=== PATIENT | female | born 1960 | race Caucasian/White ===

== ENCOUNTER 2024-04-07 15:08 | Emergency (ER) | payer SELFPAY ==
[2024-04-07 15:08] VITALS: BP 184/107; PULSE 87; RESP 18; TEMP 36.6; O2SAT 99; BMI 31.1
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
[2024-04-07 17:00] VITALS: BP 155/87; PULSE 75; RESP 18; TEMP 36.7; O2SAT 97
== END 2024-04-07 17:05 | disposition home or self-care (01) ==
PROVIDERS: Emergency Provider Emergency Medicine; PCP Student in an Organized Health Care Education/Training Program; Visit Provider Emergency Medicine
DX: S06.0X0A Concussion without loss of consciousness, initial encounter (principal); Z87.891 Personal history of nicotine dependence; Z79.01 Long term (current) use 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s; V89.2XXA Person injured in unspecified motor-vehicle accident, traffic, initial encounter
CPT/HCPCS: 70450; 99282

== ENCOUNTER 2024-12-07 13:19 | Outpatient (RCR) | payer SELFPAY ==
--- NOTE | 2025-03-21 15:51 | HP.OT.NRP ---
Patient Information Patient Information: FADUMO CANTOR was seen in my office for initial evaluation on . The following Plan of Care was established for this patient: Last Seen Last Seen: This patient was last seen in our office 12/07/24. Pertinent comments regarding their Occupational therapy will appear below: no further apts have been scheduled and due to time lapse in services pt is d/c at this time. At this point I will be discontinuing this patient from occupational therapy. I would be happy to see this patient again in the future if found appropriate by the physician. Thank you! Kayla Harley, OTR/L, CHT
== END 2024-12-07 19:00 | disposition home or self-care (01) ==
LOC: OT 13:19
PROVIDERS: PCP Student in an Organized Health Care Education/Training Program; Referring Provider Surgery Plastic and Reconstructive Surgery; Visit Provider Surgery Plastic and Reconstructive Surgery
DX: M72.0 Palmar fascial fibromatosis [Dupuytren] (principal)

== ENCOUNTER 2025-06-14 18:45 | Inpatient (IN) | payer MEDICARE, SELFPAY ==
[2025-06-14 18:47] VITALS: BP 165/120; PULSE 100; RESP 20; TEMP 36.1; O2SAT 100; BMI 30.7
[2025-06-14] MEDS: 0.9% Normal Saline (1000mL) 1,000 ML 1000 ML IV (19:49)
[2025-06-14 19:58] LABS: Hematocrit 41.0 % (37-47); Hemoglobin 13.4 g/dL (12.0-15.0); Immature Granulocytes Count 0.030 X10^3/uL (0.0-0.0); Mean Corp Hgb Conc 32.7 g/dL (32-36); Mean Corpuscular Volume 89.5 fL (81-99); Mean Platelet Vol. 10.8 fl (6.2-12.0); NRBC Flagged by Analyzer 0 % (0-5); Platelet Count 249 K/mm3 (150-450); RBC Distribution Width CV 13.1 % (11.6-14.6); RBC Distribution Width SD 42.8 fl (35.1-43.9); Red Blood Count 4.58 M/mm3 (4.2-5.4); White Blood Count 6.6 K/mm3 (4.4-11.0)
--- NOTE | 2025-06-14 19:58 | EX.ED.DYSGE1 ---
HPI History of Present Illness Chief Complaint: Nausea/Vomiting Narrative Narrative: Patient was seen and examined after presenting to ED for nausea vomiting states that she had multiple bloody emesis episodes states that she has never had this before does not drink any significant amount of alcohol she is however on warfarin but stopped taking it on Thursday as she is supposed to get a colonoscopy tomorrow she will restart her colonoscopy prep today. PFSH PFSH Medical History Blood clot in leg Back problem Arthritis Allergies Hypercholesterolemia Hypertension FH: cholecystectomy Brain aneurysm Home Medications ?Medication ?Instructions ?Recorded ?Last Taken ?Type warfarin 7.5 mg tablet 7.5 mg PO QDAY 11/24/24 06/11/25 History Allergy/AdvReac Type Severity Reaction Status Date / Time shellfish derived Allergy Mild Vomiting Verified 06/14/25 18:50 mushroom Allergy Anaphylaxis Verified 06/14/25 18:50 Family History Other Blood clot in leg Breast cancer CVA (cerebral vascular accident) Cancer Kidney disease Surgical History Hx of cholecystectomy H/O brain surgery H/O: hysterectomy Social History household members: none housing: house pets and animals: Yes Smoking Status: Former smoker how long ago did patient quit smoking: quit 1979 alcohol intake: current details: socially substance use type: does not use additional social history: pt uses aspirin and ibuprofen pt denies vaping, denies edibles, denies marijuana, pt report history of blood clots ROS ROS ED ROS Narrative Pertinent Positives: Multiple episodes of bloody emesis anticoagulated on warfarin but has not had a 3 days Pertinent Negatives: Fevers chills black or bloody stool abdominal pain hemoptysis The remainder of review of systems negative unless otherwise stated in the HPI above. Systems reviewed including constitutional, psychiatric, cardiovascular, respiratory, integument, HENT, gastrointestinal. EXAM Physical Exam Narrative Exam Narrative: Patient is afebrile hemodynamically stable she does not appear toxic. Oropharynx is clear no evidence of any coffee-ground emesis either. Normal heart and lung sounds. Abdomen is soft nontender nondistended. Intact and equal MSPs. Const Vital Signs: 06/14/25 18:47 06/14/25 20:53 06/14/25 22:09 Temperature 97 F L Temperature Source Temporal Pulse Rate 100 76 68 Respiratory Rate 20 H 19 H 18 Blood Pressure 165/120 H 157/82 H 134/64 H Blood Pressure Mean 135 107 87 Pulse Ox 100 98 98 Oxygen Delivery Method Room Air Room Air Room Air MDM MDM MDM Narrative Medical decision making narrative: Nursing notes, triage notes, available previous documentation, and vital signs were reviewed. Any discrepancies noted were addressed. Differential Diagnoses: Need to consider GI bleed does not seem like it is a Bina-Merlos tear low suspicion for PE Interventions: Zofran Protonix Antibiotics Given: Ceftriaxone Fluids Given: 1 L normal saline Labs Reviewed: No significant leukocytosis or leukopenia hemoglobin was 13.4. No coagulopathy INR was 1. BUN to creatinine ratio was otherwise 12.7 no significant electrolyte abnormality or renal insufficiency or transaminitis troponin was 10 Previous Documentation Reviewed: None available or applicable at this time. ED Course: Patient presenting with symptoms as stated above we will evaluate and assess her hemoglobin level she needs intervention we will she states that she has had blood transfusions in the past when she had some sort of neurosurgical procedure. 1958: I was notified by nursing staff that patient is actually having hematemesis. 2246: I did discuss with hospitalist Dr. Ding who was requesting a repeat hemoglobin patient's hemoglobin went from 13.4-12 after that 1 episode of hematemesis patient will be admitted. This note was made utilizing voice recognition software. All attempts were made to correct spelling or other errors prior to note completion. However, due to the fast-paced nature of emergency medicine, some errors may still be present. Lab Data Labs: Laboratory Results - last 24 hr 06/14/25 06/14/25 06/14/25 19:50 19:52 22:06 WBC 6.6 9.5 RBC 4.58 4.06 L Hgb 13.4 12.0 Hct 41.0 36.3 L MCV 89.5 89.4 MCH 29.3 29.6 MCHC 32.7 33.1 RDW Std Deviation 42.8 42.7 RDW Coeff of Yinka 13.1 13.1 Plt Count 249 224 MPV 10.8 10.9 Immature Gran % (Auto) 0.500 0.400 Neut % (Auto) 53.7 57.5 Lymph % (Auto) 27.6 26.8 Mayes % (Auto) 13.1 H 12.2 H Eos % (Auto) 3.7 2.0 Baso % (Auto) 1.4 H 1.1 H Absolute Neuts (auto) 3.5 5.4 Absolute Lymphs (auto) 1.81 2.53 Nucleated RBC % 0 0 PT 13.8 INR 1.0 APTT 24.8 Sodium 144 Potassium 3.6 Chloride 108 Carbon Dioxide 23.0 Anion Gap 13 BUN 12 Creatinine 0.94 Estim Creat Clear Calc 59.28 Est GFR (MDRD) Non-Af 67 BUN/Creatinine Ratio 12.7 Glucose 85 Calcium 8.9 Total Bilirubin 0.74 AST 28 ALT 26 Alkaline Phosphatase 73 Troponin T High Sens 10 Total Protein 6.9 Albumin 4.3 Globulin 2.6 Albumin/Globulin Ratio 1.6 Blood Type A NEGATIVE Antibody Screen NEGATIVE Crossmatch See Detail Discharge Plan Triage Chief Complaint: Nausea/Vomiting ED Provider: Stefania Valdovinos Dx/Rx/DC Orders Clinical Impression: Hematemesis, Acute upper GI bleed Prescriptions: No Action warfarin 7.5 mg tablet 7.5 mg PO QDAY Primary Care Provider: Juan Jose Euceda Referrals: Juan Jose Euceda MD [Primary Care Provider, Internal Medicine] Print Language: Cape Verdean
[2025-06-14 20:08] LABS: Prothrombin Time (Protime)PT. 13.8 SECONDS (11.7-14.9)
[2025-06-14 20:09] LABS: Partial Thromboplast Time 24.8 Seconds (24.1-36.2)
[2025-06-14 20:19] LABS: AST(SGOT) 28 U/L (<=31); Alanine Aminotransfer ALT/SGPT 26 U/L (<=34); Albumin, Serum 4.3 g/dL (3.4-4.8); Alkaline Phosphatase 73 U/L (35-104); Anion Gap 13 (5-15); BUN 12 mg/dL (4-19); BUN/Creat Ratio 12.7 RATIO (10-20); Calcium,Total 8.9 mg/dL (7.6-11.0); Carbon Dioxide 23.0 mmol/L (21.0-32.0); Chloride 108 mmol/L (98-108); Estimated Creatinine Clearance 59.28 ml/min (50-250); Globulin 2.6 g/dL (2.2-4.2); Glucose 85 mg/dL (70-99); Potassium 3.6 mmol/L (3.3-5.1)
--- NOTE | 2025-06-14 20:31 | EKG12_ITS ---
Test Reason : CP Blood Pressure : */* mmHG Vent. Rate : 84 BPM Atrial Rate : 84 BPM P-R Int : 104 ms QRS Dur : 74 ms QT Int : 414 ms P-R-T Axes : 51 40 45 degrees QTcB Int : 489 ms Sinus rhythm with short CO Otherwise normal ECG Confirmed by Jose Alfredo Lord ([id number]), map editor TATIANA ROMERO ([id number]) on 06/16/2025 10:28:46 AM Referred By: Confirmed By: Jose Alfredo Lord
--- OUTSIDE RECORDS SUMMARY | 2025-06-14 20:47 | XMS RPT_ITS | CCD ---
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 planning , or : No Allergy to lidocaine/ epinephrine/ latex/ adhesive: No Defibrillator/ Pacer: No Pertinent Family Medical History: History of melanoma: No History of non melanoma skin cancer: No Other family history (autoimmune, dermatologic, etc): None Social History: History of severe sun king: No 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 Sun Protection: No PAST MEDICAL HISTORY Diagnosis Date Acute, but ill-defined, cerebrovascular disease 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- MRI COMPATIBLE ICD Description Code Date Cerebral hemorrhage (HCC) - 2008 from anuerysm Factor V Leiden mutation (HCC) - hetero Gastroesophageal reflux disease 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 H/O vertigo - has seen neuro in past History 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 therapy - Coumadin History of DVT of lower extremity 03/17/2017 History of malignant neoplasm of uterine body Hyperglycemia Hyperlipidemia Immunization refused Intervertebral disc disorder - lumbar disk Known medical problems 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 Osteopenia Peripheral nerve disease Phlebitis and thrombophlebitis of unspecified site Skin sensation disturbance Sternal fracture with retrosternal contusion, closed, initial encounter 01/29/2023 Vasomotor rhinitis Vitamin D deficiency PAST SURGICAL HISTORY Procedure Laterality Date BRAIN SURGERY HX 01/01/2010 drain fluid off brain CHOLECYSTECTOMY 11/2014 DR ALVAREZ COLONOSCOPY [address] EGD 2014 minimal gastritis HYSTERECTOMY HX 09/1994 Anesth, hysterectomy-HAS OVARIES PAST SURGICAL HISTORY OF 06/15/2009 craniotomy and brain aneurysm PAST SURGICAL HISTORY OF 07/07/2009 inferior vena cava filter placement PAST SURGICAL HISTORY OF 2008 Aneurysm repair-ophalmic/ clip in no MRI PAST SURGICAL HISTORY OF 08/01/2013 MOLE REMOVAL-LT ABDOMEN, RT THIGH, RT UPPER BACK Current Outpatient Medications on File Prior to Visit Medication Sig peg 3350-Electrolytes (GOLYTELY) 236-22.74-6.74 -5.86 gram suspension Refer to printed prep instructions from your provider. warfarin (JANTOVEN) 7.5 mg tablet Take 1 tablet by mouth once daily. No future refills will be approved without office visit. cyanocobalamin (VITAMIN B-12) 100 mcg tab Take 100 mcg by mouth. Zinc Gluconate 50 mg tablet Take 50 mg by mouth. Cholecalciferol, Vitamin D3, (VITAMIN D-3) 2,000 unit cap Take 1 capsule by mouth once daily. No current facility-administered medications on file prior to visit. ROS: Skin as above. Physical Exam: Oliva skin type: II The patient is a pleasant female in no apparent distress. Alert and oriented x 3. A skin exam performed of the neck, abdomen, and right upper extremity is significant for: Left Abdomen (side) - Lower Variably pigmented waxy papules/ plaques with stuck on appearance Neck - Anterior Dilated pore with central black keratin plug Right Upper Arm - Anterior Uniform brown papule with globular appearance on dermoscopy. Assessment and Plan: Skin Exam 1. SEBORRHEIC KERATOSIS Left Abdomen (side) - Lower Variably pigmented waxy papules/ plaques with stuck on appearance Reassured that this is a benign lesion and does not require any treatment. Educated that if the lesion changes color, becomes larger, bleeds, becomes bothersome or painful then it should be reevaluated. Patient expresses understanding and is agreeable to plan. 2. DILATED PORE OF ANTHONY Neck - Anterior Dilated pore with central black keratin plug Educated and reassured. Benign finding. 3. BENIGN NEVUS Right Upper Arm - Anterior Uniform brown papule with globular appearance on dermoscopy. No treatment is needed for the benign appearing and asymptomatic lesion described above. The ABCDE (Asymmetry, Border, Color, Diameter, Evolution/ Change) criteria used to evaluate pigmented lesi (more content not included)... [facility] 03-01-2025 Telephone encounter Note Images from the original note were not included. [facility]IN [facility] - PHONE FOLLOWUP Referring provider: Juan Jose Stafford MD Reason for visit: Anticoagulation Management Indication: Recurrent DVT with most recent being 2008 or 2009, Factor V Leiden mutation INR goal: 2.0-3.0 Duration: Indefinite Bridging assessment and details: History of recurrent VTE with Factor V Leiden mutation would consider bridging. DOAC appropriateness/feasibility: Eligible for DOAC, pt declines due to preference/comfort (date: 02/07/2021) Home INR monitor: Active, [employer]. Tests every 2-4 weeks Consult agreement has been signed by physician. Patient has been notified verbally and/or in writing of the terms of the pharmacist-physician consult agreement for the clinic. Date: 10/06/2018 OK to leave detailed voicemail? Not assessed Most recent visit with referring provider: 05/05/2023 PT INR Date Value Ref Range Status 02/20/2025 1.9 Final INR had been therapeutic since 08/25/2023. On 05/07, INR =1.9. Patient admitted that she stopped taking warfarin because someone told her it was rat poison and she was scared. She was then having pain in her legs so decided to restart on 05/05. INR was 1.9 after 2 doses. She stated that she took aspirin and some stuff to try to boost it. Discussed with patient that warfarin can be found in rat poison but it is much higher doses for a smaller creature. Explained that with humans, we give a therapeutic dose and monitor levels very closely. Explained the importance of INR checks to keep warfarin safe. She stated she will take but was still scared. Continued with dose patient was taking previously. INR had been therapeutic since through 09/30. Dose continued. On 10/28/2024, INR = 1.1. Subtherapeutic, etiology missed doses; pt ran out of warfarin. Restarted 10/30/2024. Will resume regular dose and recheck in 1 week to ensure return to normal, then spread checks out again if so. On 11/15/2024, INR = 2.0. Therapeutic. Dose continued. On 12/07/2024, INR = 2.1. Therapeutic. Dose continued. On 01/17/2025, INR = 2.0. Therapeutic. Dose continued. On 02/20/2025, INR = 1.9. Subtherapeutic. Dose continued as pt has been therapeutic overall with recheck in 2 weeks. Current warfarin dose: 7.5 mg daily Plan: Description CONTINUE 7.5mg daily. Recheck INR in 2 weeks. Spoke to pt, who verbalized understanding. Brenda Sarkar RPh [facility] 03-01-2025 Miscellaneous Notes Images from the original note were not included. [facility] - PHONE FOLLOWUP Referring provider: Juan Jose Stafford MD Reason for visit: Anticoagulation Management Indication: Recurrent DVT with most recent being 2008 or 2009, Factor V Leiden mutation INR goal: 2.0-3.0 Duration: Indefinite Bridging assessment and details: History of recurrent VTE with Factor V Leiden mutation would consider bridging. DOAC appropriateness/feasibility: Eligible for DOAC, pt declines due to preference/comfort (date: 02/07/2021) Home INR monitor: Active, [employer]upe/[employer]. Tests every 2-4 weeks Consult agreement has been signed by physician. Patient has been notified verbally and/or in writing of the terms of the pharmacist-physician consult agreement for the clinic. Date: 10/06/2018 OK to leave detailed voicemail? Not assessed Most recent visit with referring provider: 05/05/2023 PT INR Date Value Ref Range Status 02/20/2025 1.9 Final INR had been therapeutic since 08/25/2023. On 05/07, INR =1.9. Patient admitted that she stopped taking warfarin because someone told her it was rat poison and she was scared. She was then having pain in her legs so decided to restart on 05/05. INR was 1.9 after 2 doses. She stated that she took aspirin and some stuff to try to boost it. Discussed with patient that warfarin can be found in rat poison but it is much higher doses for a smaller creature. Explained that with humans, we give a therapeutic dose and monitor levels very closely. Explained the importance of INR checks to keep warfarin safe. She stated she will take but was still scared. Continued with dose patient was taking previously. INR had been therapeutic since through 09/30. Dose continued. On 10/28/2024, INR = 1.1. Subtherapeutic, etiology missed doses; pt ran out of warfarin. Restarted 10/30/2024. Will resume regular dose and recheck in 1 week to ensure return to normal, then spread checks out again if so. On 11/15/2024, INR = 2.0. Therapeutic. Dose continued. On 12/07/2024, INR = 2.1. Therapeutic. Dose continued. On 01/17/2025, INR = 2.0. Therapeutic. Dose continued. On 02/20/2025, INR = 1.9. Subtherapeutic. Dose continued as pt has been therapeutic overall with recheck in 2 weeks. Current warfarin dose: 7.5 mg daily Plan: Description CONTINUE 7.5mg daily. Recheck INR in 2 weeks. Spoke to pt, who verbalized understanding. Brenda Sarkar RPh documented in this encounter [facility] 02-20-2025 Note HNO ID: [id number] Author: BETHANY LOWERY APRN.DUPLICATE MAKER Service: ? Author Type: Nurse Practitioner Type: Progress Notes Filed: 02/20/2025 10:41 Note Text: Recording using [employer] software for draft documentation of the visit was discussed with the patient/authorized chain sales representative; all questions welcomed and answered. Patient/authorized chain sales representative agreed to proceed Subjective Fadumo Cantor is a 64-year-old female with a history of hyperlipidemia, recurrent DVTs, Factor V Leiden mutation, and Raynaud's syndrome, HPL, presenting for medication follow-up. Factor V Leiden Mutation: - History of recurrent DVTs. - Managed with warfarin 7.5 mg daily through Coumadin clinic - Last INR was 1.9. - Monitors INR at home. - Recent dietary intake of salad noted. Dupuytren's Contracture: - Diagnosed with Dupuytren's contracture in both hands by hand orthopedic in [place]. - More pain in the left hand; fingers get stuck. - Pain radiates up the arm. - Wearing bilateral wrist braces for support. - She may consider having injections done in her hands if worsens Hyperlipidemia: - Last lipid panel on 07/20/20 showed cholesterol 144, triglyceride 112, HDL 57, LDL 65. - Managed with diet. Raynaud's Syndrome: - Fingers and toes change color; no ulcers. - Keeps extremities warm. GERD: - Managed with [facility]. Constipation: - Managed with increased vegetable intake. Vitamin D Deficiency: - Taking vitamin D 2000 units daily. Skin lesion: - Has history of left lower abdomen skin lesion removal by mailroom assistant many years ago. - she states that lesion has reoccurred in the same location that was removed Weight Gain: - Recent weight gain from 176 lbs to 183 lbs. - Limited exercise due to weather conditions. - Uses a cane for ambulation due to gait issues and back pain. PAST MEDICAL HISTORY Diagnosis Date Acute, but ill-defined, cerebrovascular disease 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- MRI COMPATIBLE ICD Description Code Date Cerebral hemorrhage (HCC) - 2008 from anuerysm Factor V Leiden mutation (HCC) - hetero Gastroesophageal reflux disease 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 H/O vertigo - has seen neuro in past History 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 therapy - Coumadin History of DVT of lower extremity 03/17/2017 History of malignant neoplasm of uterine body Hyperglycemia Hyperlipidemia Immunization refused Intervertebral disc disorder - lumbar disk Known medical problems 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 Osteopenia Peripheral nerve disease Phlebitis and thrombophlebitis of unspecified site Skin sensation disturbance Sternal fracture with retrosternal contusion, closed, initial encounter 01/29/2023 Vasomotor rhinitis Vitamin D deficiency PAST SURGICAL HISTORY Procedure Laterality Date BRAIN SURGERY HX 01/01/2010 drain fluid off brain CHOLECYSTECTOMY 11/2014 DR ALVAREZ COLONOSCOPY [address] EGD 2014 minimal gastritis HYSTERECTOMY HX 09/1994 Anesth, hysterectomy-HAS OVARIES PAST SURGICAL HISTORY OF 06/15/2009 craniotomy and brain aneurysm PAST SURGICAL HISTORY OF 07/07/2009 inferior vena cava filter placement PAST SURGICAL HISTORY OF 2008 Aneurysm repair-ophalmic/ clip in no MRI PAST SURGICAL HISTORY OF 08/01/2013 MOLE REMOVAL-LT ABDOMEN, RT THIGH, RT UPPER BACK SOCIAL HISTORY[1] ALLERGIES Allergen Reactions Mushroom Other: See Comments Get heartburn Other reaction(s): AOF Current Outpatient Medications Medication Sig warfarin (JANTOVEN) 7.5 mg tablet Take 1 tablet by mouth once daily. No future refills will be approved without office visit. cyanocobalamin (VITAMIN B-12) 100 mcg tab Take 100 mcg by mouth. Zinc Gluconate 50 mg tablet Take 50 mg by mouth. Cholecalciferol, Vitamin D3, (VITAMIN D-3) 2,000 unit cap Take 1 capsule by mouth once daily. peg 3350-Electrolytes (GOLYTELY) 236-22.74-6.74 -5.86 gram suspension Refer to printed prep instructions from your provider. No current facility-administered medications for this visit. Review of Systems Constitutional: (+) weight gain Respiratory: (+) productive cough-in am, (-) wheezing, (-) shortness of breath Gastrointestinal: (+) constipation, (+) acid reflux, (-) abdominal pain, (-) nausea, (-) vomiting Musculoskeletal: (+) bilateral hand pain, (+) finger stiffness, (+) gait instability Skin: (+) digital color changes, (-) digital ulcers Psychiatric: (-) anxiety, (-) depressed mood, (-) anhedonia Hematologic/Lymphatic: (-) easy bruising, (-) bleeding BP 134/84 Pulse 90 Temp (Src) 97.6 (Temporal) Resp 18 Ht 5' 3 (1.60m) Wt 183 lb (83.0kg) SpO2 99% BMI 32.43 kg/(m2). Last BP 02/20/25 : 134/84 06/27/24 : 124/90 09/14/23 : 148/84 Last Wt 02/20/25 : 83 kg (183 lb) 06/27/24 : 79.9 kg (176 lb 2.4 oz) 09/14/23 : 75.8 kg (167 lb) Labs: (Today) INR: 1.9 (02/03/2023) (more content not included)... [facility] 02-20-2025 History of Presen t illness Narrative Recording using [employer] software for draft documentation of the visit was discussed with the patient/authorized chain sales representative; all questions welcomed and answered. Patient/authorized chain sales representative agreed to proceed Subjective Fadumo Cantor is a 64-year-old female with a history of hyperlipidemia, recurrent DVTs, Factor V Leiden mutation, and Raynaud's syndrome, HPL, presenting for medication follow-up. Factor V Leiden Mutation: - History of recurrent DVTs. - Managed with warfarin 7.5 mg daily through Coumadin clinic - Last INR was 1.9. - Monitors INR at home. - Recent dietary intake of salad noted. Dupuytren's Contracture: - Diagnosed with Dupuytren's contracture in both hands by hand orthopedic in [place]. - More pain in the left hand; fingers get stuck. - Pain radiates up the arm. - Wearing bilateral wrist braces for support. - She may consider having injections done in her hands if worsens Hyperlipidemia: - Last lipid panel on 07/20/20 showed cholesterol 144, triglyceride 112, HDL 57, LDL 65. - Managed with diet. Raynaud's Syndrome: - Fingers and toes change color; no ulcers. - Keeps extremities warm. GERD: - Managed with [facility]. Constipation: - Managed with increased vegetable intake. Vitamin D Deficiency: - Taking vitamin D 2000 units daily. Skin lesion: - Has history of left lower abdomen skin lesion removal by mailroom assistant many years ago. - she states that lesion has reoccurred in the same location that was removed Weight Gain: - Recent weight gain from 176 lbs to 183 lbs. - Limited exercise due to weather conditions. - Uses a cane for ambulation due to gait issues and back pain. PAST MEDICAL HISTORY Diagnosis Date Acute, but ill-defined, cerebrovascular disease 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- MRI COMPATIBLE ICD Description Code Date Cerebral hemorrhage (HCC) - 2008 from anuerysm Factor V Leiden mutation (HCC) - hetero Gastroesophageal reflux disease 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 H/O vertigo - has seen neuro in past History 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 therapy - Coumadin History of DVT of lower extremity 03/17/2017 History of malignant neoplasm of uterine body Hyperglycemia Hyperlipidemia Immunization refused Intervertebral disc disorder - lumbar disk Known medical problems 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 Osteopenia Peripheral nerve disease Phlebitis and thrombophlebitis of unspecified site Skin sensation disturbance Sternal fracture with retrosternal contusion, closed, initial encounter 01/29/2023 Vasomotor rhinitis Vitamin D deficiency PAST SURGICAL HISTORY Procedure Laterality Date BRAIN SURGERY HX 01/01/2010 drain fluid off brain CHOLECYSTECTOMY 11/2014 DR ALVAREZ COLONOSCOPY [address] EGD 2014 minimal gastritis HYSTERECTOMY HX 09/1994 Anesth, hysterectomy-HAS OVARIES PAST SURGICAL HISTORY OF 06/15/2009 craniotomy and brain aneurysm PAST SURGICAL HISTORY OF 07/07/2009 inferior vena cava filter placement PAST SURGICAL HISTORY OF 2008 Aneurysm repair-ophalmic/ clip in no MRI PAST SURGICAL HISTORY OF 08/01/2013 MOLE REMOVAL-LT ABDOMEN, RT THIGH, RT UPPER BACK SOCIAL HISTORY[1] ALLERGIES Allergen Reactions Mushroom Other: See Comments Get heartburn Other reaction(s): AOF Current Outpatient Medications Medication Sig warfarin (JANTOVEN) 7.5 mg tablet Take 1 tablet by mouth once daily. No future refills will be approved without office visit. cyanocobalamin (VITAMIN B-12) 100 mcg tab Take 100 mcg by mouth. Zinc Gluconate 50 mg tablet Take 50 mg by mouth. Cholecalciferol, Vitamin D3, (VITAMIN D-3) 2,000 unit cap Take 1 capsule by mouth once daily. peg 3350-Electrolytes (GOLYTELY) 236-22.74-6.74 -5.86 gram suspension Refer to printed prep instructions from your provider. No current facility-administered medications for this visit. Review of Systems Constitutional: (+) weight gain Respiratory: (+) productive cough-in am, (-) wheezing, (-) shortness of breath Gastrointestinal: (+) constipation, (+) acid reflux, (-) abdominal pain, (-) nausea, (-) vomiting Musculoskeletal: (+) bilateral hand pain, (+) finger stiffness, (+) gait instability Skin: (+) digital color changes, (-) digital ulcers Psychiatric: (-) anxiety, (-) depressed mood, (-) anhedonia Hematologic/Lymphatic: (-) easy bruising, (-) bleeding BP 134/84 Pulse 90 Temp (Src) 97.6 (Temporal) Resp 18 Ht 5' 3 (1.60m) Wt 183 lb (83.0kg) SpO2 99% BMI 32.43 kg/(m^2). Last BP 02/20/25 : 134/84 06/27/24 : 124/90 09/14/23 : 148/84 Last Wt 02/20/25 : 83 kg (183 lb) 06/27/24 : 79.9 kg (176 lb 2.4 oz) 09/14/23 : 75.8 kg (167 lb) Labs: (Today) INR: 1.9 (02/03/2023) - CBC: - WBC: 5.46 times10 / microL - Hemoglobin: 11 g/dL - Platelets: 246 times10 / microL - BMP: - Glucose: 100 mg/dL - BUN: 12 mg/dL - Creatinine: 0.77 mg/dL - Sodium: 139 mmol/L - Potassium: 4.2 mmol/L (07/20/2020) Lipid panel: Cholesterol: 144 mg/dL, Triglyceride: 112 mg/dL, HDL: 57 mg/dL, LDL: 65 mg/dL Physical Exam GENERAL: NAD, alert and oriented. SKIN: left lower abdomen lesion that is warty stuck-on appearance and dark brown in color HEAD: Normocephalic. EYES: PERRLA, EOMI, conjunctiva clear. LUNGS: Clear to auscultation bilaterally, no wheezes/rhonchi/rales. HEART: Regular rate and rhythm, no murmurs. No ectopy. EXTREMITIES: Normal, no deformities, no skin discoloration, no edema. Strength 5/5 in upper and lower extremities. Mild contractures of the third, fourth, and fifth fingers on both hands. Wearing bilateral wrist braces. NEURO: Awake, alert and oriented x3. Antalgic gait, uses cane. ABDOMEN: Soft, non-tender, positive bowel sounds. Assessment & Plan 1. Wellness examination (Z00.00) - Patient last seen by Dr. Stafford on 05/05/23. - Due for routine labs and screenings. - Order CBC, CMP, fasting lipid panel, and hemoglobin A1c. - Order screening mammogram. - Order diagnostic colonoscopy. - Follow-up in 6 months with PCP 2. Keratosis, seborrheic (L82.1) - Recurrent lesion consistent with seborrheic keratosis on right lower abdomen - Discussed benign nature of these types of lesions - Refer to dermatology for evaluation and management. 3. Vitamin D deficiency (E55.9) - Continue vitamin D 2000 units daily. - Order vitamin D level with routine labs. 4. Mixed hyperlipidemia (E78.2) - Last lipid panel on 07/20/20: cholesterol 144, triglyceride 112, HDL 57, LDL 65. - Order fasting lipid panel. 5. Factor V Leiden mutation (HCC) (D68.51) 6. H/O thromboembolism (Z86.718) - History of recurrent DVTs and Factor V Leiden mutation. - Managed by Coumadin clinic; INR today 1.9 today - Continue warfarin 7.5 mg daily. - Educated patient on dietary vitamin K intake and its effect on INR. 7. Obesity, Class I, BMI 30-34.9 (E66.811) - BMI 30.4; weight increased from 176 lbs (May 2024) to 183 lbs. - Advised weight loss to improve joint health. 8. Raynaud's disease without gangrene (I73.00) - No current ulcers; advised to keep extremities warm. 9. Encounter for screening mammogram for breast cancer (Z12.31) - Mammogram ordered 10. Encounter for screening for diabetes mellitus (Z13.1) - Screening hemoglobin A1c 11. Encounter for screening examination for other mental health and behavioral disorders (Z13.39) 12. Screening for depression (Z13.31) - No current symptoms of anxiety or depression. 13. Screening for colon cancer (Z12.11) - referral for colonoscopy 14. Intervertebral disc disorder with radiculopathy of lumbar region (M51.16) 15. Gait abnormality (R26.9) - Uses cane for ambulation due to gait instability and back issues. - Advised Tylenol as needed for pain. - Provided prescription for handicap placard. 16. Dupuytren's contracture of both hands (M72.0) - Bilateral hand contractures with pain and limited function; previously evaluated by hand specialist who advised against surgery. - Continue use of wrist braces. Bethany Lowery APRN.CNP [1] Social History Tobacco Use Smoking status: Former Current packs/day: 0.00 Average packs/day: 0.2 packs/day for 1 year (0.2 ttl pk-yrs) Types: Cigarettes Start date: 07/18/1975 Quit date: 07/18/1976 Years since quittin.6 Smokeless tobacco: Never Tobacco comments: Start age 16 quit age 17 years. Vaping Use Vaping status: Never Used Substance Use Topics Alcohol use: No Drug use: No documented in this encounter [facility] 02-13-2025 Telephone encounter Note Pt has not been seen by PCP since 05/05/2023. Has previously refused multiple times to see provider in office. Currently has appt scheduled for 02/20/2025 with MARY KAY Lowery. Refilled medication for 14 days supply, included in sig pt will not be given more refills if she is not seen. Brenda Sarkar RPh [facility] 02-13-2025 Miscellaneous Notes Pt has not been seen by PCP since 05/05/2023. Has previously refused multiple times to see provider in office. Currently has appt scheduled for 02/20/2025 with MARY KAY Lowery. Refilled medication for 14 days supply, included in sig pt will not be given more refills if she is not seen. Brenda Sarkar RPh Last Office Visit Date: 05/05/2023 Last [facility] Visit: Visit date not found Has the patient had an appointment at [facility] in the past year, or do they have an upcoming appointment scheduled at [facility]? YES- Continue with refill request. Future Appointment: 02/20/2025 Pharmacy faxed requesting the following refill Refill(s) Requested: Requested Prescriptions Pending Prescriptions Disp Refills JANTOVEN 7.5 mg tablet [Pharmacy Med Name: Jantoven Oral Tablet 7.5 MG] 90 tablet 0 Sig: TAKE 1 TABLET BY MOUTH EVERY DAY ALLERGIES Allergen Reactions Mushroom Other: See Comments Get heartburn Other reaction(s): AOF (home) [phone] (cell) The patients preferred pharmacy has been captured for this encounter? yes Request is for script(s) to be escript to pharmacy. Peace Pedersen LPN documented in this encounter [facility] 02-13-2025 Telephone encounter Note Last Office Visit Date: 05/05/2023 Last [facility] Visit: Visit date not found Has the patient had an appointment at [facility] in the past year, or do they have an upcoming appointment scheduled at [facility]? YES- Continue with refill request. Future Appointment: 02/20/2025 Pharmacy faxed requesting the following refill Refill(s) Requested: Requested Prescriptions Pending Prescriptions Disp Refills JANTOVEN 7.5 mg tablet [Pharmacy Med Name: Jantoven Oral Tablet 7.5 MG] 90 tablet 0 Sig: TAKE 1 TABLET BY MOUTH EVERY DAY ALLERGIES Allergen Reactions Mushroom Other: See Comments Get heartburn Other reaction(s): AOF (home) [phone] (cell) The patients preferred pharmacy has been captured for this encounter? yes Request is for script(s) to be escript to pharmacy. Peace Pedersen LPN [facility] 01-17-2025 Telephone encounter Note Reviewed and agree with plan. [facility] 01-17-2025 Miscellaneous Notes Reviewed and agree with plan. Images from the original note were not included. [facility]IN [facility] - PHONE FOLLOWUP Referring provider: Juan Jose Stafford MD Reason for visit: Anticoagulation Management Indication: Recurrent DVT with most recent being 2008 or 2009, Factor V Leiden mutation INR goal: 2.0-3.0 Duration: Indefinite Bridging assessment and details: History of recurrent VTE with Factor V Leiden mutation would consider bridging. DOAC appropriateness/feasibility: Eligible for DOAC, pt declines due to preference/comfort (date: 02/07/2021) Home INR monitor: Active, [employer]. Tests every 2-4 weeks Consult agreement has been signed by physician. Patient has been notified verbally and/or in writing of the terms of the pharmacist-physician consult agreement for the clinic. Date: 10/06/2018 OK to leave detailed voicemail? Not assessed Most recent visit with referring provider: 05/05/2023 PT INR Date Value Ref Range Status 01/17/2025 2.0 Final On 10/28/2024, INR = 1.1. Subtherapeutic, etiology missed doses; pt ran out of warfarin. Restarted 10/30/2024. Will resume regular dose and recheck in 1 week to ensure return to normal, then spread checks out again if so. On 11/15/2024, INR = 2.0. Therapeutic. Dose continued. On 12/07/2024, INR = 2.1. Therapeutic. Dose continued. Today, 01/17/25, INR is therapeutic at 2.0. Dose continued. Current warfarin dose: 7.5 mg daily Plan: Description CONTINUE 7.5mg daily. Recheck INR in 4 weeks. Spoke to pt, who verbalized understanding. Kaleigh Stock RPh documented in this encounter [facility] 01-17-2025 Telephone encounter Note Images from the original note were not included. [facility] - PHONE FOLLOWUP Referring provider: Juan Jose Stafford MD Reason for visit: Anticoagulation Management Indication: Recurrent DVT with most recent being 2008 or 2009, Factor V Leiden mutation INR goal: 2.0-3.0 Duration: Indefinite Bridging assessment and details: History of recurrent VTE with Factor V Leiden mutation would consider bridging. DOAC appropriateness/feasibility: Eligible for DOAC, pt declines due to preference/comfort (date: 02/07/2021) Home INR monitor: Active, [employer]. Tests every 2-4 weeks Consult agreement has been signed by physician. Patient has been notified verbally and/or in writing of the terms of the pharmacist-physician consult agreement for the clinic. Date: 10/06/2018 OK to leave detailed voicemail? Not assessed Most recent visit with referring provider: 05/05/2023 PT INR Date Value Ref Range Status 01/17/2025 2.0 Final On 10/28/2024, INR = 1.1. Subtherapeutic, etiology missed doses; pt ran out of warfarin. Restarted 10/30/2024. Will resume regular dose and recheck in 1 week to ensure return to normal, then spread checks out again if so. On 11/15/2024, INR = 2.0. Therapeutic. Dose continued. On 12/07/2024, INR = 2.1. Therapeutic. Dose continued. Today, 01/17/25, INR is therapeutic at 2.0. Dose continued. Current warfarin dose: 7.5 mg daily Plan: Description CONTINUE 7.5mg daily. Recheck INR in 4 weeks. Spoke to pt, who verbalized understanding. Kaleigh Stock RPh [facility] 12-07-2024 Telephone encounter Note Images from the original note were not included. [facility]IN [facility] - PHONE FOLLOWUP Referring provider: Juan Jose Stafford MD Reason for visit: Anticoagulation Management Indication: Recurrent DVT with most recent being 2008 or 2009, Factor V Leiden mutation INR goal: 2.0-3.0 Duration: Indefinite Bridging assessment and details: History of recurrent VTE with Factor V Leiden mutation would consider bridging. DOAC appropriateness/feasibility: Eligible for DOAC, pt declines due to preference/comfort (date: 02/07/2021) Home INR monitor: Active, [employer]upe/[employer]. Tests every 2-4 weeks Consult agreement has been signed by physician. Patient has been notified verbally and/or in writing of the terms of the pharmacist-physician consult agreement for the clinic. Date: 10/06/2018 OK to leave detailed voicemail? Not assessed Most recent visit with referring provider: 05/05/2023 PT INR Date Value Ref Range Status 12/07/2024 2.1 Final INR had been therapeutic since 08/25/2023. On 05/07, INR =1.9. Patient admitted that she stopped taking warfarin because someone told her it was rat poison and she was scared. She was then having pain in her legs so decided to restart on 05/05. INR was 1.9 after 2 doses. She stated that she took aspirin and some stuff to try to boost it. Discussed with patient that warfarin can be found in rat poison but it is much higher doses for a smaller creature. Explained that with humans, we give a therapeutic dose and monitor levels very closely. Explained the importance of INR checks to keep warfarin safe. She stated she will take but was still scared. Continued with dose patient was taking previously. INR had been therapeutic since through 09/30. Dose continued. On 10/28/2024, INR = 1.1. Subtherapeutic, etiology missed doses; pt ran out of warfarin. Restarted 10/30/2024. Will resume regular dose and recheck in 1 week to ensure return to normal, then spread checks out again if so. On 11/15/2024, INR = 2.0. Therapeutic. Dose continued. Today, 12/07/2024, INR = 2.1. Therapeutic. Dose continued. Current warfarin dose: 7.5 mg daily Plan: Description CONTINUE 7.5mg daily. Recheck INR in 4 weeks. Spoke to pt, who verbalized understanding. Brenda Sarkar RPh T [facility] 12-07-2024 Miscellaneous Notes Images from the original note were not included. [facility]IN [facility] - PHONE FOLLOWUP Referring provider: Juan Jose Stafford MD Reason for visit: Anticoagulation Management Indication: Recurrent DVT with most recent being 2008 or 2009, Factor V Leiden mutation INR goal: 2.0-3.0 Duration: Indefinite Bridging assessment and details: History of recurrent VTE with Factor V Leiden mutation would consider bridging. DOAC appropriateness/feasibility: Eligible for DOAC, pt declines due to preference/comfort (date: 02/07/2021) Home INR monitor: Active, [employer]upe/[employer]. Tests every 2-4 weeks Consult agreement has been signed by physician. Patient has been notified verbally and/or in writing of the terms of the pharmacist-physician consult agreement for the clinic. Date: 10/06/2018 OK to leave detailed voicemail? Not assessed Most recent visit with referring provider: 05/05/2023 PT INR Date Value Ref Range Status 12/07/2024 2.1 Final INR had been therapeutic since 08/25/2023. On 05/07, INR =1.9. Patient admitted that she stopped taking warfarin because someone told her it was rat poison and she was scared. She was then having pain in her legs so decided to restart on 05/05. INR was 1.9 after 2 doses. She stated that she took aspirin and some stuff to try to boost it. Discussed with patient that warfarin can be found in rat poison but it is much higher doses for a smaller creature. Explained that with humans, we give a therapeutic dose and monitor levels very closely. Explained the importance of INR checks to keep warfarin safe. She stated she will take but was still scared. Continued with dose patient was taking previously. INR had been therapeutic since through 09/30. Dose continued. On 10/28/2024, INR = 1.1. Subtherapeutic, etiology missed doses; pt ran out of warfarin. Restarted 10/30/2024. Will resume regular dose and recheck in 1 week to ensure return to normal, then spread checks out again if so. On 11/15/2024, INR = 2.0. Therapeutic. Dose continued. Today, 12/07/2024, INR = 2.1. Therapeutic. Dose continued. Current warfarin dose: 7.5 mg daily Plan: Description CONTINUE 7.5mg daily. Recheck INR in 4 weeks. Spoke to pt, who verbalized understanding. Brenda Sarkar RPh documented in this encounter [facility] 11-24-2024 Progress note [facility] 11-24-2024 Progress note Note Date/Time November 24, 2024 10:16am [facility] [address], [address] [place] [address] OFFICE VISIT Date of Service: 11/24/24 MR#: [id number] Acct: [id number] Name: FADUMO CANTOR Rep #: [id number] : [id number] Provider: Dr. Liu Garcia MD Age/Sex: 64/F Location: [email or web address] Status: Signed Intake Vital Signs 3 04/07/24 15:08 11/24/24 10:00 Height 5 ft 3 in 5 ft 3 in Weight: 180 lb BMI 31.8 BP 153/90 H Blood Pressure Location Lt brachial Position Sitting Respiration 18 Pulse 94 Temp 98.4 F Temp Source Temporal Pulse Oximetry (%) 98 Oxygen Delivery Method room air Intake Visit Reasons: Dupuytrens Chief Complaint: dupuytrens bilateral Is patient in pain?: Yes (09/05) Allergies shellfish derived Allergy (Mild, Verified 11/24/24 10:13) Vomiting mushroom Allergy (Verified 11/24/24 09:45) Anaphylaxis Medications 3 ?Medication ?Instructions ?Recorded ?Confirmed ?Type calcium carbonate ([place]) 168 mg PO TID 11/24/24 History cholecalciferol (vitamin D3) 25 25 mcg PO QDAY 5 11/24/24 History mcg (1,000 unit) capsule mecobalamin (vitamin B12) 1,000 1,000 mcg PO QDAY 10/2811/24/24 History mcg chewable tablet (B12 Active) warfarin 7.5 mg tablet 7.5 mg PO QDAY 11/24/2410/28 History zinc acetate 25 mg (zinc) capsule 25 mg PO QDAY 11/24/24 History Have you fallen in the past year?: Yes (bruising) Nurse's Note: pt here for eval of Dupuytren bilaterally PFSH Medical History Blood clot in leg Back problem Arthritis Allergies Hypercholesterolemia Hypertension FH: cholecystectomy Brain aneurysm Surgical History Hx of cholecystectomy H/O brain surgery H/O: hysterectomy Family History Other Blood clot in leg Breast cancer CVA (cerebral vascular accident) Cancer Kidney disease Social History Smoking Status: Former smoker how long ago did patient quit smoking: quit 1979 alcohol intake: current details: socially substance use type: does not use additional social history: pt uses aspirin and ibuprofen pt denies vaping, denies edibles, denies marijuana, pt report history of blood clots HPI Dupuytrens Details: Patient is a delightful 64-year-old female with history of blood clots (IVC filter and on Coumadin) who presents with Dupuytren's disease in the bilateral hands that has been present for approximately 5 months. She noticed in June 2024. She has noticed some tight cords developing in the fingers. Fingers are not contracted at rest. She can get her hand flat. No specific trigger points on the fingers. She does not have diabetes. She is not a smoker. ROS General General: Yes good health; No fatigue, fever(s) or weight loss HENMT HENMT: No rhinitis, sore throat/mouth sore, nasal congestion, contacts or glaucoma Endo Endocrine: No thyroid disease, polydipsia, heat intolerance, cold intolerance, hepatitis or excessive urine Skin Skin: Yes Bleeding and bruising; No changing moles or suspicious lesion Musc Musculoskeletal: Yes joint pain, joint stiffness and back pain; No muscle weakness, osteoarthritis or Muscle aches/ myalgia Neuro Neurological: No headache(s), Yes lightheadedness and No numbness Cardio Cardiovascular: No chest pain, pacemaker, fatigue or shortness of breat with exertion Psych Psychiatric: No depression, claustrophobia or anxiety Resp Respiratory: No spitting up, shortness of breath, sleep apnea, asthma, emphysema, TB, Cough or Smoker Gastro Gastrointestinal: Yes constipation; No diarrhea, blood in stool, nausea, vomiting or abdominal bloating Roel Hematologic: No anemia, No bleeding and No abnormal bleeding Genitourinary: No urinary frequency, blood in urine or incontinence Exam Details Both hands are able to be flat (negative Hueston's test) Right hand: positive pretendinous cords in the right ring and long finger palmarregions. No joint contractures No triggering Left hand: Positive pretendinous cords the left index finger palmar region and left long finger palmar region. No joint contractures No triggering Coding Level of Care Code No Charge Diagnoses Dupuytren contracture M72.0 Assessment and Plan (No Qualifiers) Assessment and Plan (1) Dupuytren contracture: Status: Acute Plan We discussed the pathophysiology of Dupuytren's disease, as well as treatment options. Prior to development of flexion contracture of metacarpophalangeal joint (MCPJ) or proximal interphalangeal joint (PIPJ), no treatment is indicated, and only clinical observation is needed. However, once flexion contracture occurs, patient may choose to have Xiaflex (collagenase injection) Xiaflex injection involves 2 clinic visits. The collagenase injection is performed during the first visit. After a week, the patient returns to clinic for cord manipulation, followed by extension night splint fabrication. The recovery time after Xiaflex injection is between 2-4 weeks. However, there is a higher rate of recurrence. There is also 1-2% chance of flexor tendon rupture associated with Xiaflex treatment, especially when treating the small finger. We also discussed that after any type of intervention, it would be important to wear a night extension splint for at least 6 months to minimize rate of recurrence. At this time, since the patient does not have any flexion contracture, the patient may perform self-monitoring, and to return to clinic if the patient develops flexion contracture. Referral to OT for eval and possible splints Clinical Quality Measures Falls Risk Screening/Assistive Devices Have you fallen in the past year?: Yes (bruising) 11/24/24 1017 <Electronically signed by Padilla Garcia MD> Date _ Padilla Garcia MD Cosigner Signature: Date (if applicable) CC: ~ [facility] Work Phone: [phone] Telephone encounter Note* Telephone Encounter - Lolly Tristan LPN - 10/31/2024 3:48 PM EDT [facility] called with patient INR results from 10-28-2024 INR 1.1 Lolly Tristan LPN [facility]05-05-2025 Miscellaneous Notes* Telephone Encounter - Lolly Tristan LPN - 10/31/2024 3:48 PM EDT [facility] called with patient INR results from 10-28-2024 INR 1.1 Lolly Tristan LPN documented [facility] this [facility] Telephone encounter Note * Telephone Encounter - Gudelia Brenda [facility] - 10/28/2024 4:45 PM EDT Images from the original note were not included. [facility] AMBULATORY PHARMACY COUMADIN CLINIC - PHONE FOLLOWUP Referring provider: Juan Jose Stafford MD Reason for visit: Anticoagulation Management Indication: Recurrent DVT with most recent being 2008 or 2009, Factor V Leiden mutation INR goal: 2.0-3.0 Duration: Indefinite Bridging assessment and details: History of recurrent VTE with Factor V Leiden mutation would consider bridging. DOAC appropriateness/feasibility: Eligible for DOAC, pt declines due to preference/comfort (date: 02/07/2021) Home INR monitor: Active, [facility]. Tests every 2-4 weeks Consult agreement has been signed by physician. Patient has been notified verbally and/or in writing of the terms of the pharmacist-physician consult agreement for the clinic. Date: 10/06/2018 OK to leave detailed voicemail? Not assessed Most recent visit with referring provider: 05/05/2023 PT INR Date Value Ref Range Status 10/28/2024 1.1 Final INR had been therapeutic since 08/25/2023. On 05/07, INR =1.9. Patient admitted that she stopped taking warfarin because someone told her it was rat poison and she was scared. She was then having pain in her legs so decided to restart on 05/05.INR was 1.9 after 2 doses. She stated that she took aspirin and some stuff to try to boost it. Discussed with patient that warfarin can be found in rat poison but it is much higher doses for a smaller creature. Explained that with humans, we give a therapeutic dose and monitor levels very closely. Explained the importance of INR checks to keep warfarin safe. She stated she will take but was still scared. Continued with dose patient was taking previously. INR had been therapeutic since through 09/30. Dose continued. On 10/28/2024, INR = 1.1. Subtherapeutic, etiology missed doses; pt ran out of warfarin. Restarted 10/30/2024. Will resume regular dose and recheck in 1 week to ensure return to normal, then spread checks out again if so. Current warfarin dose: Taking 7.5mg daily Plan: Description CONTINUE 7.5mg daily. Recheck INR in 1 week. Spoke to pt, who verbalized understanding. Brenda Sarkar RPh [facility]05-02-2025 Miscellaneous Notes* Telephone Encounter - Brenda Sarkar RPh - 10/28/2024 4:45 PM EDT Images from the original note were not included. [facility]UL[facility]AC[facility] COU[facility]ADIN CLINIC - PHONE FOLLOWUP Referring provider: Juan Jose Stafford MD Reason for visit: Anticoagulation Management Indication: Recurrent DVT with most recent being 2008 or 2009, Factor V Leiden mutation INR goal: 2.0-3.0 Duration: Indefinite Bridging assessment and details: History of recurrent VTE with Factor V Leiden mutation would consider bridging. DOAC appropriateness/feasibility: Eligible for DOAC, pt declines due to preference/comfort (date: 02/07/2021) Home INR monitor: Active, [facility]. Tests every 2-4 weeks Consult agreement has been signed by physician. Patient has been notified verbally and/or in writing of the terms of the pharmacist-physician consult agreement for the clinic. Date: 10/06/2018 OK to leave detailed voicemail? Not assessed Most recent visit with referring provider: 05/05/2023 PT INR Date Value Ref Range Status 10/28/2024 1.1 Final INR had been therapeutic since 08/25/2023. On 05/07, INR =1.9. Patient admitted that she stopped taking warfarin because someone told her it was rat poison and she was scared. She was then having pain in her legs so decided to restart on 05/05.INR was 1.9 after 2 doses. She stated that she took aspirin and some stuff to try to boost it. Discussed with patient that warfarin can be found in rat poison but it is much higher doses for a smaller creature. Explained that with humans, we give a therapeutic dose and monitor levels very closely. Explained the importance of INR checks to keep warfarin safe. She stated she will take but was still scared. Continued with dose patient was taking previously. INR had been therapeutic since through 09/30. Dose continued. On 10/28/2024, INR = 1.1. Subtherapeutic, etiology missed doses; pt ran out of warfarin. Restarted 10/30/2024. Will resume regular dose and recheck in 1 week to ensure return to normal, then spread checks out again if so. Current warfarin dose: Taking 7.5mg daily Plan: Description CONTINUE 7.5mg daily. Recheck INR in 1 week. Spoke to pt, who verbalized understanding. Brenda Sarkar RP documented in this [facility] Telephone encounter Note * Telephone Encounter - Valerio Araya - 10/25/2024 4:25 PM EDT Patient made aware. Patient stated that she spoke with FC and was told that she could assistance in30 days. Internal Medicine Valerio Araya October 25, 2024 4:27 PM [facility]04-29-2025 Miscellaneous Notes* Telephone Encounter - Valerio Araya - 10/25/2024 4:25 PM EDT Patient made aware. Patient stated that she spoke with FC and was told that she could assistance in30 days. Internal Medicine Valerio Araya October 25, 2024 4:27 PM * Telephone Encounter - Juan Jose Stafford MD - 10/25/2024 11:52 AM EDT I understand but it is not safe to provide care or send refills without seeing patient on regular basis. Please advise pt that it is imperative that pt be seen, [facility]. * Telephone Encounter - Tee Urban - 10/24/2024 4:28 PM EDT Patient called back and was informed that she had been contacted to schedule an appointment to continue receiving medication refills. She states that she does not have insurance. Patient was asked ifshe had spoken with someone from the Financial clearance department. She stated she has not and that she makes to much money to get any help. Patient was told that her provider would be made aware. She was agreeable to taking the number for FC to discuss options. Tee Urban, [employer] October 24, 2024 4:32 PM * Telephone Encounter - Sayra Davis - 10/24/2024 4:04 PM EDT Called patient to schedule, cannot LVM as mailbox is full. [employer] message sent. Sayra Davis [employer] October 24, 2024 4:04 PM * Telephone Encounter - Juan Jose Stafford MD - 10/24/2024 3:44 PM EDT No more refills until seen in office. Last seen since 04/2023 ! Please schedule with me. Thanks. * Telephone Encounter - Kary Franklin LPN - 10/24/2024 1:24 PM EDT Last Office Visit Date: 05/05/2023 Last [facility] Visit: Visit date not found Has the patient had an appointment at [facility] in the past year, or do they have an upcoming appointment scheduled at [facility]? YES- Continue with refill request. Future Appointment: Visit date not found Pharmacy faxed requesting the following refill Refill(s) Requested: Requested Prescriptions Pending Prescriptions Disp Refills warfarin (COUMADIN) 7.5 mg tablet [Pharmacy Med Name: Warfarin Sodium Oral Tablet 7.5 MG] 30 tablet0 Sig: TAKE 1 TABLET BY MOUTH EVERY DAY ALLERGIES Allergen Reactions Mushroom Other: See Comments Get heartburn Other reaction(s): [facility] (home) [phone] (cell) The patients preferred pharmacy has been captured for this encounter? yes Request is for script(s) to be escript to pharmacy. Kary Franklin LPN documented in this encounter[facility] Telephone encounter Note * Telephone Encounter - Juan Jose Stafford MD - 10/25/2024 11:52 AM EDT I understand but it is not safe to provide care or send refills without seeing patient on regular basis. Please advise pt that it is imperative that pt be seen, please provide options like [facility] or [facility]. [facility]04-28-2025 Telephone encounter Note* Telephone Encounter - Tee Urban - 10/24/2024 4:28 PM EDT Patient called back and was informed that she had been contacted to schedule an appointment to continue receiving medication refills. She states that she does not have insurance. Patient was asked ifshe had spoken with someone from the Financial clearance department. She stated she has not and that she makes to much money to get any help. Patient was told that her provider would be made aware. She was agreeable to taking the number for FC to discuss options. Tee Urban, [employer] October 24, 2024 4:32 PM [facility]04-28-2025 Telephone encounter Note* Telephone Encounter - Sayra Davis - 10/24/2024 4:04 PM EDT Called patient to schedule, cannot LVM as mailbox is full. [employer] message sent. Sayra Davis, [employer] October 24, 2024 4:04 PM [facility]04-28-2025 Telephone encounter Note* Telephone Encounter - Juan Jose Stafford MD - 10/24/2024 3:44 PM EDT No more refills until seen in office. Last seen since 04/2023 ! Please schedule with me. Thanks. [facility]04-28-2025 Telephone encounter Note* Telephone Encounter - Kary Franklin LPN - 10/24/2024 1:24 PM EDT Last Office Visit Date: 05/05/2023 Last [facility] Visit: Visit date not found Has the patient had an appointment at [facility] in the past year, or do they have an upcoming appointment scheduled at [facility]? YES- Continue with refill request. Future Appointment: Visit date not found Pharmacy faxed requesting the following refill Refill(s) Requested: Requested Prescriptions Pending Prescriptions Disp Refills warfarin (COUMADIN) 7.5 mg tablet [Pharmacy Med Name: Warfarin Sodium Oral Tablet 7.5 MG] 30 tablet0 Sig: TAKE 1 TABLET BY MOUTH EVERY DAY ALLERGIES Allergen Reactions Mushroom Other: See Comments Get heartburn Other reaction(s): [facility] (home) [phone] (cell) The patients preferred pharmacy has been captured for this encounter? yes Request is for script(s) to be escript to pharmacy. Kary Franklin LPN [facility]04-04-2025 Telephone encounter Note* Telephone Encounter - Juan Jose Stafford MD - 09/30/2024 5:37 PM EDT Reviewed and agree with plan. [facility]04-04-2025 Miscellaneous Notes* Telephone Encounter - Juan Jose Stafford MD - 09/30/2024 5:37 PM EDT Reviewed and agree with plan. * Telephone Encounter - Kaleigh Stock, [facility] - 09/30/2024 2:23 PM EDT Images from the original note were not included. [facility] - PHONE FOLLOWUP Referring provider: Juan Jose Stafford MD Reason for visit: Anticoagulation Management Indication: Recurrent DVT with most recent being 2008 or 2009, Factor V Leiden mutation INR goal: 2.0-3.0 Duration: Indefinite Bridging assessment and details: History of recurrent VTE with Factor V Leiden mutation would consider bridging. DOAC appropriateness/feasibility: Eligible for DOAC, pt declines due to preference/comfort (date: 02/07/2021) Home INR monitor: Active, [facility]. Tests every 2-4 weeks Consult agreement has been signed by physician. Patient has been notified verbally and/or in writing of the terms of the pharmacist-physician consult agreement for the clinic. Date: 10/06/2018 OK to leave detailed voicemail? Not assessed Most recent visit with referring provider: 05/05/2023 PT INR Date Value Ref Range Status 09/30/2024 2.0 Final INR had been therapeutic since 08/25/2023. On 05/07, INR =1.9. Patient admitted that she stopped taking warfarin because someone told her it was rat poison and she was scared. She was then having pain in her legs so decided to restart on 05/05.INR was 1.9 after 2 doses. She stated that she took aspirin and some stuff to try to boost it. Discussed with patient that warfarin can be found in rat poison but it is much higher doses for a smaller creature. Explained that with humans, we give a therapeutic dose and monitor levels very closely. Explained the importance of INR checks to keep warfarin safe. She stated she will take but was still scared. Continued with dose patient was taking previously. INR has been therapeutic since, including today, 09/30. Dose continued. Current warfarin dose: Taking 7.5mg daily Plan: Description CONTINUE 7.5mg daily. Recheck INR in 4 weeks. Attempted to reach patient. No voicemail set up. [employer]Day Message sent. Kaleigh Stock RPh documented in this encounterMet[facility] Telephone encounter Note * Telephone Encounter - Kaleigh Stock RPh - 09/30/2024 2:23 PM EDT Images from the original note were not included. [facility]UL[facility]ORY PHARMACY COUMADIN CLINIC - PHONE FOLLOWUP Referring provider: Juan Jose Stafford MD Reason for visit: Anticoagulation Management Indication: Recurrent DVT with most recent being 2008 or 2009, Factor V Leiden mutation INR goal: 2.0-3.0 Duration: Indefinite Bridging assessment and details: History of recurrent VTE with Factor V Leiden mutation would consider bridging. DOAC appropriateness/feasibility: Eligible for DOAC, pt declines due to preference/comfort (date: 02/07/2021) Home INR monitor: Active, [facility]. Tests every 2-4 weeks Consult agreement has been signed by physician. Patient has been notified verbally and/or in writing of the terms of the pharmacist-physician consult agreement for the clinic. Date: 10/06/2018 OK to leave detailed voicemail? Not assessed Most recent visit with referring provider: 05/05/2023 PT INR Date Value Ref Range Status 09/30/2024 2.0 Final INR had been therapeutic since 08/25/2023. On 05/07, INR =1.9. Patient admitted that she stopped taking warfarin because someone told her it was rat poison and she was scared. She was then having pain in her legs so decided to restart on 05/05.INR was 1.9 after 2 doses. She stated that she took aspirin and some stuff to try to boost it. Discussed with patient that warfarin can be found in rat poison but it is much higher doses for a smaller creature. Explained that with humans, we give a therapeutic dose and monitor levels very closely. Explained the importance of INR checks to keep warfarin safe. She stated she will take but was still scared. Continued with dose patient was taking previously. INR has been therapeutic since, including today, 09/30. Dose continued. Current warfarin dose: Taking 7.5mg daily Plan: Description CONTINUE 7.5mg daily. Recheck INR in 4 weeks. Attempted to reach patient. No voicemail set up. [employer]Day Message sent. Kaleigh Stock RPh [facility]03-04-2025 Telephone encounter Note* Telephone Encounter - Kaleigh Stock RPh - 08/30/2024 10:51 AM EST Images from the original note were not included. [facility]BULATORY PHARMACY COUMADIN CLINIC - PHONE FOLLOWUP Referring provider: Juan Jose Stafford MD Reason for visit: Anticoagulation Management Indication: Recurrent DVT with most recent being 2008 or 2009, Factor V Leiden mutation INR goal: 2.0-3.0 Duration: Indefinite Bridging assessment and details: History of recurrent VTE with Factor V Leiden mutation would consider bridging. DOAC appropriateness/feasibility: Eligible for DOAC, pt declines due to preference/comfort (date: 02/07/2021) Home INR monitor: Active, [facility]. Tests every 2-4 weeks Consult agreement has been signed by physician. Patient has been notified verbally and/or in writing of the terms of the pharmacist-physician consult agreement for the clinic. Date: 10/06/2018 OK to leave detailed voicemail? Not assessed Most recent visit with referring provider: 05/05/2023 PT INR Date Value Ref Range Status 08/30/2024 2.3 Final INR had been therapeutic since 08/25/2023. On 05/07, INR =1.9. Patient admitted that she stopped taking warfarin because someone told her it was rat poison and she was scared. She was then having pain in her legs so decided to restart on 05/05.INR was 1.9 after 2 doses. She stated that she took aspirin and some stuff to try to boost it. Discussed with patient that warfarin can be found in rat poison but it is much higher doses for a smaller creature. Explained that with humans, we give a therapeutic dose and monitor levels very closely. Explained the importance of INR checks to keep warfarin safe. She stated she will take but was still scared. Continued with dose patient was taking previously. INR has been therapeutic since, including today, 08/30. Dose continued. Current warfarin dose: Taking 7.5mg daily Plan: Description CONTINUE 7.5mg daily. Recheck INR in 4 weeks. Discussed with patient on the phone who read back instructions and verbalized understanding. Kaleigh Stock RPh [facility]03-04-2025 Miscellaneous Notes* Telephone Encounter - Kaleigh Stock RPh - 08/30/2024 10:51 AM EST Images from the original note were not included. [facility] AMBULATORY PHARMACY COUMADIN CLINIC - PHONE FOLLOWUP Referring provider: Juan Jose Stafford MD Reason for visit: Anticoagulation Management Indication: Recurrent DVT with most recent being 2008 or 2009, Factor V Leiden mutation INR goal: 2.0-3.0 Duration: Indefinite Bridging assessment and details: History of recurrent VTE with Factor V Leiden mutation would consider bridging. DOAC appropriateness/feasibility: Eligible for DOAC, pt declines due to preference/comfort (date: 02/07/2021) Home INR monitor: Active, [facility]. Tests every 2-4 weeks Consult agreement has been signed by physician. Patient has been notified verbally and/or in writing of the terms of the pharmacist-physician consult agreement for the clinic. Date: 10/06/2018 OK to leave detailed voicemail? Not assessed Most recent visit with referring provider: 05/05/2023 PT INR Date Value Ref Range Status 08/30/2024 2.3 Final INR had been therapeutic since 08/25/2023. On 05/07, INR =1.9. Patient admitted that she stopped taking warfarin because someone told her it was rat poison and she was scared. She was then having pain in her legs so decided to restart on 05/05.INR was 1.9 after 2 doses. She stated that she took aspirin and some stuff to try to boost it. Discussed with patient that warfarin can be found in rat poison but it is much higher doses for a smaller creature. Explained that with humans, we give a therapeutic dose and monitor levels very closely. Explained the importance of INR checks to keep warfarin safe. She stated she will take but was still scared. Continued with dose patient was taking previously. INR has been therapeutic since, including today, 08/30. Dose continued. Current warfarin dose: Taking 7.5mg daily Plan: Description CONTINUE 7.5mg daily. Recheck INR in 4 weeks. Discussed with patient on the phone who read back instructions and verbalized understanding. Kaleigh Stock RPh documented in this encounterMet[facility] Telephone encounter Note * Telephone Encounter - Brenda Sarkar RPh - 08/03/2024 4:40 PM EST Images from the original note were not included. [facility]AC[facility] COU[facility]ADIN CLINIC - PHONE FOLLOWUP Referring provider: Juan Jose Stafford MD Reason for visit: Anticoagulation Management Indication: Recurrent DVT with most recent being 2008 or 2009, Factor V Leiden mutation INR goal: 2.0-3.0 Duration: Indefinite Bridging assessment and details: History of recurrent VTE with Factor V Leiden mutation would consider bridging. DOAC appropriateness/feasibility: Eligible for DOAC, pt declines due to preference/comfort (date: 02/07/2021) Home INR monitor: Active, [employer]. Tests every 2-4 weeks Consult agreement has been signed by physician. Patient has been notified verbally and/or in writing of the terms of the pharmacist-physician consult agreement for the clinic. Date: 10/06/2018 OK to leave detailed voicemail? Not assessed Most recent visit with referring provider: 05/05/2023 PT INR Date Value Ref Range Status 08/03/2024 2.0 Final INR had been therapeutic since 08/25/2023. On 05/07, INR =1.9. Patient admitted that she stopped taking warfarin because someone told her it was rat poison and she was scared. She was then having pain in her legs so decided to restart on 05/05.INR was 1.9 after 2 doses. She stated that she took aspirin and some stuff to try to boost it. Discussed with patient that warfarin can be found in rat poison but it is much higher doses for a smaller creature. Explained that with humans, we give a therapeutic dose and monitor levels very closely. Explained the importance of INR checks to keep warfarin safe. She stated she will take but was still scared. Continued with dose patient was taking previously. INR was therapeutic on 05/27/2024, 07/04/2024, and again today 08/03/2024. Dose continued. Current warfarin dose: Taking 7.5mg daily Plan: Description CONTINUE 7.5mg daily. Recheck INR in 4 weeks. Spoke to pt, who verbalized understanding. Brenda Sarkar RPh [facility]02-05-2025 Miscellaneous Notes* Telephone Encounter - Brenda Sarkar RPh - 08/03/2024 4:40 PM EST Images from the original note were not included. [facility] - PHONE FOLLOWUP Referring provider: Juan Jose Stafford MD Reason for visit: Anticoagulation Management Indication: Recurrent DVT with most recent being 2008 or 2009, Factor V Leiden mutation INR goal: 2.0-3.0 Duration: Indefinite Bridging assessment and details: History of recurrent VTE with Factor V Leiden mutation would consider bridging. DOAC appropriateness/feasibility: Eligible for DOAC, pt declines due to preference/comfort (date: 02/07/2021) Home INR monitor: Active, [employer]. Tests every 2-4 weeks Consult agreement has been signed by physician. Patient has been notified verbally and/or in writing of the terms of the pharmacist-physician consult agreement for the clinic. Date: 10/06/2018 OK to leave detailed voicemail? Not assessed Most recent visit with referring provider: 05/05/2023 PT INR Date Value Ref Range Status 08/03/2024 2.0 Final INR had been therapeutic since 08/25/2023. On 05/07, INR =1.9. Patient admitted that she stopped taking warfarin because someone told her it was rat poison and she was scared. She was then having pain in her legs so decided to restart on 05/05.INR was 1.9 after 2 doses. She stated that she took aspirin and some stuff to try to boost it. Discussed with patient that warfarin can be found in rat poison but it is much higher doses for a smaller creature. Explained that with humans, we give a therapeutic dose and monitor levels very closely. Explained the importance of INR checks to keep warfarin safe. She stated she will take but was still scared. Continued with dose patient was taking previously. INR was therapeutic on 05/27/2024, 07/04/2024, and again today 08/03/2024. Dose continued. Current warfarin dose: Taking 7.5mg daily Plan: Description CONTINUE 7.5mg daily. Recheck INR in 4 weeks. Spoke to pt, who verbalized understanding. [facility] Telephone encounter Note * Telephone Encounter - Juan Jose Stafford MD - 07/04/2024 2:17 PM EST Reviewed and agree with plan. [facility]01-06-2025 Miscellaneous Notes* Telephone Encounter - Juan Jose Stafford MD - 07/04/2024 2:17 PM EST Reviewed and agree with plan. * Telephone Encounter - Kaleigh Stock RP - 07/04/2024 1:38 PM EST Images from the original note were not included. [place] [facility] - PHONE FOLLOWUP Referring provider: Juan Jose Stafford MD Reason for visit: Anticoagulation Management Indication: Recurrent DVT with most recent being 2008 or 2009, Factor V Leiden mutation INR goal: 2.0-3.0 Duration: Indefinite Bridging assessment and details: History of recurrent VTE with Factor V Leiden mutation would consider bridging. DOAC appropriateness/feasibility: Eligible for DOAC, pt declines due to preference/comfort (date: 02/07/2021) Home INR monitor: Active, [employer]. Tests every 2 weeks Consult agreement has been signed by physician. Patient has been notified verbally and/or in writing of the terms of the pharmacist-physician consult agreement for the clinic. Date: 10/06/2018 OK to leave detailed voicemail? Not assessed Most recent visit with referring provider: 05/05/2023 PT INR Date Value Ref Range Status 07/04/2024 2.0 Final INR had been therapeutic since 08/25/2023. On 05/07, INR =1.9. Patient admitted that she stopped taking warfarin because someone told her it was rat poison and she was scared. She was then having pain in her legs so decided to restart on 05/05.INR was 1.9 after 2 doses. She stated that she took aspirin and some stuff to try to boost it. Discussed with patient that warfarin can be found in rat poison but it is much higher doses for a smaller creature. Explained that with humans, we give a therapeutic dose and monitor levels very closely. Explained the importance of INR checks to keep warfarin safe. She stated she will take but was still scared. Continued with dose patient was taking previously. On 05/27, INR =2.8. Today, 07/04, INR =2.0. Dose continued. Current warfarin dose: Taking 7.5mg daily Plan: Description CONTINUE 7.5mg daily. Recheck INR in 2 weeks. Discussed with patient on the phone who read back instructions and verbalized understanding. Kaleigh Stock RPh documented in this [facility] Telephone encounter Note * Telephone Encounter - Kaleigh Stock RPh - 07/04/2024 1:38 PM EST Images from the original note were not included. [facility] - PHONE FOLLOWUP Referring provider: Juan Jose Stafford MD Reason for visit: Anticoagulation Management Indication: Recurrent DVT with most recent being 2008 or 2009, Factor V Leiden mutation INR goal: 2.0-3.0 Duration: Indefinite Bridging assessment and details: History of recurrent VTE with Factor V Leiden mutation would consider bridging. DOAC appropriateness/feasibility: Eligible for DOAC, pt declines due to preference/comfort (date: 02/07/2021) Home INR monitor: Active, [employer]. Tests every 2 weeks Consult agreement has been signed by physician. Patient has been notified verbally and/or in writing of the terms of the pharmacist-physician consult agreement for the clinic. Date: 10/06/2018 OK to leave detailed voicemail? Not assessed Most recent visit with referring provider: 05/05/2023 PT INR Date Value Ref Range Status 07/04/2024 2.0 Final INR had been therapeutic since 08/25/2023. On 05/07, INR =1.9. Patient admitted that she stopped taking warfarin because someone told her it was rat poison and she was scared. She was then having pain in her legs so decided to restart on 05/05.INR was 1.9 after 2 doses. She stated that she took aspirin and some stuff to try to boost it. Discussed with patient that warfarin can be found in rat poison but it is much higher doses for a smaller creature. Explained that with humans, we give a therapeutic dose and monitor levels very closely. Explained the importance of INR checks to keep warfarin safe. She stated she will take but was still scared. Continued with dose patient was taking previously. On 05/27, INR =2.8. Today, 07/04, INR =2.0. Dose continued. Current warfarin dose: Taking 7.5mg daily Plan: Description CONTINUE 7.5mg daily. Recheck INR in 2 weeks. Discussed with patient on the phone who read back instructions and verbalized understanding. Kaleigh Stock RPh [facility]12-30-2024 History of Present illness Narrative* Pauline Arthur, RT(R) - 06/27/2024 3:50 PM EST Radiology Service Progress Note PATIENT NAME: Fadumo Cantor DATE OF SERVICE: June 27, 2024 TIME: 4:05 PM PATIENT IDENTITY VERIFICATION COMPLETED USING TWO (2) IDENTIFIERS: Name and Date of confirmedby patient verbally. FALL SCREENING: Has the patient had 2 falls in the last year or 1 fall with injury or currently using an Ambulatory Assistive Device (Walker, Cane, Wheelchair, Crutches, etc.)? No PATIENT GENDER DATA: Female. status: : No status: NO. PATIENT RELEVANT IMPLANT DATA REVIEWED: Not Applicable PATIENT PRESENTS WITH AN IMPLANTABLE OR ATTACHED IDENTIFICATION CLERK: No RADIOLOGY DEPARTMENT: General X-ray: Exam(s) Completed: Chest X-Ray PERIPHERAL IV DATA: Not applicable SIGNED BY: ELENA Smith) June 27, 2024 4:05 PM documented in this encounterMet[facility]12-[facility]-2024 NoteHNO ID: [id number] Author: PAULINE ARTHUR RT (R) Service: Radiology Author Type: Technologist Type: Progress Notes Filed: 06/27/2024 16:11 Note Text: Radiology Service Progress Note PATIENT NAME: Fadumo Cantor DATE OF SERVICE: June 27, 2024 TIME: 4:05 PM PATIENT IDENTITY VERIFICATION COMPLETED USING TWO (2) IDENTIFIERS: Name and Date of confirmed by patient verbally. FALL SCREENING: Has the patient had 2 falls in the last year or 1 fall with injury or currently using an Ambulatory Assistive Device (Walker, Cane, Wheelchair, Crutches, etc.)? No PATIENT GENDER DATA: Female. status: : No status: NO. PATIENT RELEVANT IMPLANT DATA REVIEWED: Not Applicable PATIENT PRESENTS WITH AN IMPLANTABLE OR ATTACHED IDENTIFICATION CLERK: No RADIOLOGY DEPARTMENT: General X-ray: Exam(s) Completed: Chest X-Ray PERIPHERAL IV DATA: Not applicable SIGNED BY: RT Luis(Annalisa) June 27, 2024 4:05 [facility]12-30-2024 NoteHNO ID: [id number] Author: HAKEEM GARCIA APRN.DUPLICATE MAKER Service: ? Author Type: Nurse Practitioner Type: Progress Notes Filed: 06/27/2024 16:33 Note Text: Subjective HPI Nontoxic-appearing female presents urgent care chief complaint cough. Patient states initially she did have some loose stools body aches chills low-grade fever. Those symptoms improved. Has a lingering pharyngitis left ear pain and cough. Cough is most bothersome symptom. OTC medications little to no success. Sick contacts unknown. Denies any chest pain shortness of breath pleuritic pain or hemoptysis. No fevers today. Past medical history prescription medications allergies reviewed. .Patient presents with: Nausea AND Vomiting: Diarrhea, cough, sore throat, left ear pain, losing voice x 2 weeks PAST MEDICAL HISTORY Diagnosis Date Acute, but ill-defined, cerebrovascular disease Aneurysm (HCC) - left post ophthalmic artey 2008 -clip- MRI COMPATIBLE ICD Description Code Date Cerebral hemorrhage (HCC) - 2008 from anuerysm Factor V Leiden mutation (HCC) - hetero Gastroesophageal reflux disease 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 H/O vertigo - has seen neuro in past History 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 therapy - Coumadin History of malignant neoplasm of uterine body Hyperglycemia Hyperlipidemia Immunization refused Intervertebral disc disorder - lumbar disk Known medical problems 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 Osteopenia Peripheral nerve disease Phlebitis and thrombophlebitis of unspecified site Skin sensation disturbance Vasomotor rhinitis Vitamin D deficiency PAST SURGICAL HISTORY Procedure Laterality Date BRAIN SURGERY HX 01/01/2010 drain fluid off brain CHOLECYSTECTOMY 11/2014 DR ALVAREZ COLONOSCOPY [address] EGD 2014 minimal gastritis HYSTERECTOMY HX 09/1994 Anesth, hysterectomy-HAS OVARIES PAST SURGICAL HISTORY OF 06/15/2009 craniotomy and brain aneurysm PAST SURGICAL HISTORY OF 07/07/2009 inferior vena cava filter placement PAST SURGICAL HISTORY OF 2008 Aneurysm repair-ophalmic/ clip in no MRI PAST SURGICAL HISTORY OF 08/01/2013 MOLE REMOVAL-LT ABDOMEN, RT THIGH, RT UPPER BACK ALLERGIES Mushroom MEDICATIONS warfarin (JANTOVEN) 7.5 mg tablet take 1 tablet by mouth every day cyanocobalamin (VITAMIN B-12) 100 mcg tab Take 100 mcg by mouth. Zinc Gluconate 50 mg tablet Take 50 mg by mouth. Cholecalciferol, Vitamin D3, (VITAMIN D-3) 2,000 unit cap Take 1 capsule by mouth once daily. cyclobenzaprine (FLEXERIL) 10 mg tablet Take 0.5-1 tablets by mouth two times a day as needed. (Patient not taking: Reported on 06/27/2024) FAMILY HISTORY Problem Relation Age of Onset other (Bleeding disorder) Mother Stroke Father 86 Ischemic Heart Disease Father other (Bleeding disorder) Father other (Bleeding disorder) Brother Lung Cancer Paternal Grandfather Breast Cancer Other AUNT Cancer Other other (cancer breast) Other aunt other (cancer bone) Other uncle other (heafrt dis.) Other gf x2 Social History Tobacco Use Smoking status: Former Current packs/day: 0.00 Average packs/day: 0.2 packs/day for 1 year (0.2 ttl pk-yrs) Types: Cigarettes Start date: 07/18/1975 Quit date: 07/18/1976 Years since quittin.9 Smokeless tobacco: Never Tobacco comments: Start age 16 quit age 17 years. Vaping Use Vaping status: Never Used Substance Use Topics Alcohol use: No Drug use: No BP 124/90 Pulse 80 Temp 36.5 ?C (97.7 ?F) Resp 21 Wt 79.9 kg (176 lb 2.4 oz) SpO2 98% BMI 31.20 kg/m? Review of Systems Constitutional: Positive for malaise/fatigue. Negative for chills and fever. HENT: Positive for congestion, ear pain and sore throat. Negative for ear discharge and sinus pain. Eyes: Negative for blurred vision, pain, discharge and redness. Respiratory: Positive for cough. Negative for hemoptysis, sputum production, shortness of breath, wheezing and stridor. Cardiovascular: Negative for chest pain. Gastrointestinal: Positive for diarrhea and vomiting. Negative for abdominal pain and nausea. Musculoskeletal: Positive for myalgias. Skin: Negative for itching and rash. Neurological: Positive for headaches. Negative for dizziness. Objective Physical Exam Constitutional: General: She is not in acute distress. Appearance: She is not diaphoretic. HENT: Head: Normocephalic. Jaw: No trismus, tenderness, swelling or pain on movement. Right Ear: Tympanic membrane, ear canal and external ear normal. Left Ear: Tympanic membrane, ear canal and external ear normal. Nose: Congestion present. Mouth/Throat: Mouth: Mucous membranes are moist. Pharynx: Oropharynx is clear. Uvula midline. No pharyngeal swelling, oropharyngeal exudate, posterior oropharyngeal erythema or uvula swelling. Eyes: Conjunctiva/sclera: Conjunctivae normal. Pupils: Pupils are equal, round, and reactive to l (more content not included)...[facility]12-30-2024 History of Present illness Narrative* Hakeem Garcia, EMILY.[facility] - 06/27/2024 3:37 PM EST Subjective HPI Nontoxic-appearing female presents urgent care chief complaint cough. Patient states initially she did have some loose stools body aches chills low-grade fever. Those symptoms improved. Has a lingering pharyngitis left ear pain and cough. Cough is most bothersome symptom. OTC medications little to no success. Sick contacts unknown. Denies any chest pain shortness of breath pleuritic pain or hemoptysis. No fevers today. Past medical history prescription medications allergies reviewed. .Patient presents with: Nausea & Vomiting: Diarrhea, cough, sore throat, left ear pain, losing voice x 2 weeks PAST MEDICAL HISTORY Diagnosis Date Acute, but ill-defined, cerebrovascular disease Aneurysm (HCC) - left post ophthalmic artey 2008 -clip- MRI COMPATIBLE ICD Description Code Date Cerebral hemorrhage (HCC) - 2008 from anuerysm Factor V Leiden mutation (HCC) - hetero Gastroesophageal reflux disease 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 H/O vertigo - has seen neuro in past History 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 therapy - Coumadin History of malignant neoplasm of uterine body Hyperglycemia Hyperlipidemia Immunization refused Intervertebral disc disorder - lumbar disk Known medical problems 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 Osteopenia Peripheral nerve disease Phlebitis and thrombophlebitis of unspecified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 new areas, as well as of traffic and other pedestrians. References oJse Alfredo Bland MD, Wellness [place] 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, Chief Building Inspector, [facility] [employer]. Starting a Walking Program (PDF) Accessed 12/03/2016. Ted Boyle. Walking the Road to Fitness and Health. ACSM's Health & Fitness Journal 2009;13(2): 37-39 Centers for Disease Control. Why Walk? Why Not? Accessed 12/03/2016. documented in this encounterMet[facility]02-23-2023 History of Present illness Narrative* Natasha Keene MD - 08/21/2022 8:35 AM EST Images from the original note were not included. Natasha Keene MD [facility] Date of Evaluation: 08/21/2022 Patient Name: Fadumo Cantor : 1960 Chief Complaint: Patient presents with: For routine follow up visit. Subjective Ms. Cantor is a 62 year old female who presents for: follow up of chronic medical conditions. HPI Ms Wetzel, 62 yo F PMH: factor V leiden deficiency on coumadin, uterine cancer s/p hysterectomy, remote history of DVTs/p IVC filter placement. Here for 4 weeks follow up from last clinic visit. Previous visit she followed up after ED follow up for hematuria and flank pain where found to have left sided 4 mm renal stone. Today she is in fairly good health. Silviano any further bleeding, flank pain resolved. Seems like she may have passed the stone. She has stopped taking Flomax. Denies any chest pain, sob, palpitation, light headed ness or dizziness. Does complains of B/L 1+ pitting edema. Refuses to wear compression stocking. She is follows at coumadin clinic, requesting for coumadin refill . Last seen on 08/12/2022 with therapeutic INR. Compliant with medications and follow up. We will be getting routine health maintenance blood work.. she is due for mammogram on 08/2022. Refused flu shot and COVID vaccine. Review of Systems GENERAL: Denies fever, chills, weight loss, or fatigue/ weakness. HEENT: Denies any headaches, blurry vision, or sore throat. NECK: Negative for lumps, goiter, pain and significant neck swelling RESPIRATORY: Negative for SOB, cough and chest pain. CARDIOVASCULAR: Negative for chest pain, leg swelling, CHF or palpitations GI: Negative for pain, nausea, vomiting, diarrhea or constipation. : No history of dysuria, frequency or incontinence MUSCULOSKELETAL: does have mild lower extremity edema. SKIN: No skin rash. PSYCH: Negative for sleep disturbance, mood disorder and recent psychosocial stressors Neuro: Negative for motor or sensory deficits. No numbness or tingling. 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 -clip- MRI COMPATIBLE ICD Description Code Date Cerebral hemorrhage (HCC) - 2008 from anuerysm Factor V Leiden mutation (HCC) - hetero Gastroesophageal reflux disease 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 H/O vertigo - has seen neuro in past History 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 therapy - Coumadin History of malignant neoplasm of uterine body Hyperglycemia Hyperlipidemia Immunization refused Intervertebral disc disorder - lumbar disk Known medical problems 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 Osteopenia Peripheral nerve disease Phlebitis and thrombophlebitis of unspecified site Skin sensation disturbance Vasomotor rhinitis Vitamin D deficiency PAST SURGICAL HISTORY Procedure Laterality Date BRAIN SURGERY HX 01/01/2010 drain fluid off brain CHOLECYSTECTOMY 11/2014 DR ALVAREZ COLONOSCOPY [address] EGD 2014 minimal gastritis HYSTERECTOMY HX 09/1994 Anesth, hysterectomy-HAS OVARIES PAST SURGICAL HISTORY OF 06/15/2009 craniotomy and brain aneurysm PAST SURGICAL HISTORY OF 07/07/2009 inferior vena cava filter placement PAST SURGICAL HISTORY OF 2008 Aneurysm repair-ophalmic/ clip in no MRI PAST SURGICAL HISTORY OF 08/01/2013 MOLE REMOVAL-LT ABDOMEN, RT THIGH, RT UPPER BACK FAMILY HISTORY Problem Relation Age of Onset other (Bleeding disorder) Mother Stroke Father 86 Ischemic Heart Disease Father other (Bleeding disorder) Father other (Bleeding disorder) Brother Breast Cancer Other AUNT Cancer Other other (cancer breast) Other aunt other (cancer bone) Other uncle other (heafrt dis.) Other gf x2 Social History Tobacco Use Smoking status: Former Packs/day: 0.50 Years: 5.00 Pack years: 2.50 Types: Cigarettes Quit date: 07/18/1976 Years since quittin.1 Smokeless tobacco: Never Tobacco comments: quit 1979 Substance Use Topics Alcohol use: No Drug use: No There are no active hospital problems to display for this patient. PAIN EVALUATION 08/21/2022 0814 Pain Level: 7 Pain Location: Generalized back and legs Frequency: Continuous Current Outpatient Medications Medication Sig Dispense Refill warfarin (COUMADIN) 7.5 mg tablet Take 3.75mg on Thursday and Thursday and 7.5mg on all other days of the week 30 tablet 5 cyanocobalamin (VITAMIN B-12) 100 mcg tab Take 100 mcg by mouth. Zinc Gluconate 50 mg tablet Take 50 mg by mouth. polyethylene glycol 3350 (MIRALAX) 17 gram/dose powder Take 17 g by mouth once daily. (Patient taking differently: Take 17 g by mouth once daily. As needed) 1 Bottle 2 EPINEPHrine (EPIPEN) 0.3 mg/0.3 mL auto-injector Inject 0.3 mL intramuscularly as needed. 1 Each 1 Cholecalciferol, Vitamin D3, (VITAMIN D-3) 2,000 unit cap Take 1 capsule by mouth once daily. acetaminophen(TYLENOL EXTRA STRENGTH 500 MG TAB) Take two(2) tablets every four to six(6) hours as needed for pain. 0 tamsulosin (FLOMAX) 0.4 mg TAKE 1 CAPSULE BY MOUTH EVERYDAY AT BEDTIME (Patient not taking: Reported on 08/21/2022) 30 capsule 0 atorvastatin (LIPITOR) 10 mg tablet TAKE 1 TABLET BY MOUTH EVERY DAY AT BEDTIME (Patient not taking: Reported on 07/24/2022) 30 tablet 5 No current facility-administered medications for this visit. I have confirmed and edited as necessary the chief complaint, medications, past medical, family andsocial histories obtained by others. Objective There were no vitals taken for this visit. Physical Exam Constitutional: Oriented to person, place, and time. Appears well-developed and well-nourished. No distress. HENT: Normocephalic and atraumatic. Oropharynx is clear and moist. No oropharyngeal exudate. PERRLA. EOM are normal. No scleral icterus. Neck: Neck supple. No JVD present. Cardiovascular: Normal rate, regular rhythm, normal heart sounds and intact distal pulses. Exam reveals no gallop and no friction rub. No murmur heard. Pulmonary/Chest: Effort normal and breath sounds normal. No respiratory distress. Abdominal: Soft, nontender. Bowel sounds are normal. No distension or masses. There is no rebound and no guarding. Musculoskeletal: Normal range of motion. 1 + bilateral pitting edema. Neurological: Alert and oriented to person, place, and time. Skin: Skin is warm and dry. Capillary refill takes less than 2 seconds. No rash noted. Data Reviewed: Most recent labs and imaging results. Most recent labs Most recent imaging A/P: ASSESSMENT/PLAN: 1. Establishing care with new doctor, encounter for - ICD9: V65.8, ICD10: Z76.89 (primary diagnosis) - VITAMIN D 25 HYDROXY - TSH BLD - HGB A1C - LIPID PANEL BASIC 2. Encounter for screening mammogram for breast cancer - ICD9: V76.12, ICD10: Z12.31 - Set up for mammogram, yearly mammogram recommended - Encouraged monthly BSE - [facility] SCREENING 3. Overweight (BMI 25.0-29.9) - ICD9: 278.02, ICD10: E66.3 Stable - Behavioral intervention and - Eat well program 4. Venous insufficiency (chronic) (peripheral) - ICD9: 459.81, ICD10: I87.2 -continue compression stocking if possible, leg elevation, low salt diet, weight loss. 5. Factor V Leiden mutation (HCC) - ICD9: 289.81, ICD10: D68.51 - WARFARIN 7.5 MG TABLET 6. Vaccine refused by patient - ICD9: V64.09, ICD10: Z28.20 - refused flu shot and COVID vaccine- will again revisit on this topic on next visit. 7. Encounter for medication refill - ICD9: V68.1, ICD10: Z76.0 8. custodial current use 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 [Z79.01]- adherent to regular inr checks - ICD9: V58.61, ICD10: Z79.01 - WARFARIN 7.5 MG TABLET Natasha Keene MD Discussed the above with the patient using shared decision making. The patient is in agreement with the diagnostic and treatment plans. [facility] Miscellaneous Notes* Telephone Encounter - Kary Franklin - 08/18/2022 2:33 PM EST Pharmacy faxed requesting the following refill Refill(s) Requested: Requested Prescriptions Pending Prescriptions Disp Refills tamsulosin (FLOMAX) 0.4 mg [Pharmacy Med Name: TAMSULOSIN HCL 0.4 MG CAPSULE] 30 capsule 0 Sig: TAKE 1 CAPSULE BY MOUTH EVERYDAY AT BEDTIME ALLERGIES Allergen Reactions Mushroom Other: See Comments Get heartburn Other reaction(s): AOF (home) [phone] (cell) Last Office Visit Date: 07/24/2022 Last [facility] Visit: Visit date not found Future Appointment: 08/21/2022 The patients preferred pharmacy has been captured for this encounter? yes Request is for script(s) to be escript to pharmacy. Kary Franklin documented [facility] this [facility] Miscellaneous Notes* Telephone Encounter - Kaleigh Stock, [facility] - 08/04/2022 2:23 PM EST Referred by Dr. Stafford Indication: Recurrent DVT with most recent being 2008 or 2009, Factor V Leiden mutation INR goal: 2.0-3.0 Duration: indefinite Bridging assessment and details: History of recurrent VTE with Factor V Leiden mutation would consider bridging. Consult agreement signed by physician. Patient has been notified verbally and/or in writing of the terms of the pharmacist-physician consult agreement for the anticoagulation clinic. Date: 10/06/18 Not on DOAC due to patient choice. PT INR Date Value Ref Range Status 08/04/2022 4.4 Final Current warfarin dose: 7.5mg daily Description HOLD today and then DECREASE to 3.75mg on Thursday and Thursday and 7.5mg on all other days of the week. Recheck in 1 week. INR was 2.0 on 12/23. She had been trying to be consistent with greens, but wanted to eat more whichlowers INR. Increased warfarin dose as above to account for her eating more vitamin K foods. INR has been therapeutic since with last INR 2 weeks ago. INR on 07/18 was then very elevated. She was started on a 15 day prednisone taper 2 weeks ago which could elevated INR. However, she reported that she only took 3 doses and then stopped. She reported that she usually eats 2-3 salads per week which contain darker greens but she had not had any in theprior week. This could have been contributing to elevated INR but would not have expected INR to inc rease to this decrease. Instructed patient to hold warfarin for 3 days. Patient reported to the ED on 07/20. She was having hematuria despite her INR decreasing. She was also having flank pain. A full work up was completed which was negative. INR was 1.4 in the ED so she was instructed to resume her usual warfarin dose. INR was still 1.4 07/21. Continued usual warfarin dose She was back to her usual diet. INR on 07/24 was therapeutic at 2.4 but had increased very rapidly from 3 days prior. Decreased dose. INR on 07/28 was therapeutic but at the very top of the range. Decreased dose further. INR today is elevated. Will hold today's dose and then decrease weekly dose by 14%. Discussed with patient on the phone who read back instructions and verbalized understanding. Next INR: 08/11/22 Next phone assessment: 08/11/22 Kaleigh Stock RPh documented in this encounterMet[facility]23 Miscellaneous Notes* Telephone Encounter - Kary Franklin - 07/30/2022 8:39 AM EST Pharmacy faxed requesting the following refill Refill(s) Requested: Requested Prescriptions Pending Prescriptions Disp Refills warfarin (COUMADIN) 7.5 mg tablet [Pharmacy Med Name: WARFARIN SODIUM 7.5 MG TABLET] 30 tablet 5 Sig: TAKE 1 TABLET BY MOUTH EVERY DAY ALLERGIES Allergen Reactions Mushroom Other: See Comments Get heartburn Other reaction(s): AOF (home) [phone] (cell) Last Office Visit Date: 07/24/2022 Last [facility] Visit: Visit date not found Future Appointment: 08/21/2022 The patients preferred pharmacy has been captured for this encounter? yes Request is for script(s) to be escript to pharmacy. Kary Franklin documented in this [facility]Met[facility]23 Miscellaneous Notes* Telephone Encounter - Kaleigh Stock RPh - 07/28/2022 1:25 PM EST Spoke with patient today regarding INR. Patient reports that she has continued to have persistent chest pain on right side of chest radiating to her back. This was present when seen in the ED on 07/20and when seen in the office on 07/24. It has not worsened or improved. EKG on 07/20 showed NSR and troponin was negative x2. Per Dr. Keene's encounter on 07/24, plan was to get echo or stress test if pain continued. Will notify PCP. Kaleigh Stock RPh documented in this [facility]Met[facility]27[facility]23 Miscellaneous Notes* Telephone Encounter - Juan Jose Stafford MD - 07/25/2022 9:44 AM EST Reviewed. Agree with plan. * Telephone Encounter - Kaleigh Stock RPh - 07/25/2022 9:29 AM EST Referred by Dr. Stafford Indication: Recurrent DVT with most recent being 2008 or 2009, Factor V Leiden mutation INR goal: 2.0-3.0 Duration: indefinite Bridging assessment and details: History of recurrent VTE with Factor V Leiden mutation would consider bridging. Consult agreement signed by physician. Patient has been notified verbally and/or in writing of the terms of the pharmacist-physician consult agreement for the anticoagulation clinic. Date: 10/06/18 Not on DOAC due to patient choice. INR (POCT) Date Value Ref Range Status 07/24/2022 2.4 (H) 0.8 - 1.2 Final Current warfarin dose: 11.25mg on Thursday, Thursday, and Thursday and 7.5mg on all other days of the week Description DECREASE to 11.25mg on Thursday and Thursday and 7.5mg on all other days of the week. Recheck INR in3 days. INR was 2.0 on 12/23. She had been trying to be consistent with greens, but wanted to eat more whichlowers INR. Increased warfarin dose as above to account for her eating more vitamin K foods. INR has been therapeutic since with last INR 2 weeks ago. INR on 07/18 was then very elevated. She was started on a 15 day prednisone taper 2 weeks ago which could elevated INR. However, she reported that she only took 3 doses and then stopped. She reported that she usually eats 2-3 salads per week which contain darker greens but she had not had any in theprior week. This could have been contributing to elevated INR but would not have expected INR to inc rease to this decrease. Instructed patient to hold warfarin for 3 days. Patient reported to the ED on 07/20. She was having hematuria despite her INR decreasing. She was also having flank pain. A full work up was completed which was negative. INR was 1.4 in the ED so she was instructed to resume her usual warfarin dose. INR was still 1.4 07/21. Continued usual warfarin dose She was back to her usual diet. INR on 07/24 was therapeutic at 2.4 but had increased very rapidly from 3 days prior. Will decrease dose as above and follow closely. Next INR: 07/28/22 Next phone assessment: 07/28/22 Kaleigh Stock RPh documented in this [facility]23 Instructions* Patient Instructions* Natasha Keene MD - 07/24/2022 9:05 AM EST Images from the original note were not included. Exercise Basics Why should I exercise? Exercise has many benefits. Exercise can help you: maintain a healthy weight or help you reach your weight loss goals reduce the likelihood of gaining weight as you age maintain bone mass lower blood pressure, cholesterol and blood sugar levels reduce the risk of chronic conditions such as diabetes, heart disease, and osteoporosis reduce stress and improve the quality of sleep maintain a higher level of cardiovascular fitness, mobility, strength, flexibility, and improves the stereotypical image of aging What is the difference between activities of daily living and structured exercise? Activities of daily living (ADLs) are the activities you do on a regular basis that can help to burn calories, maintain strength and agility, and keep active. Examples of these include washing the car, gardening, raking leaves, washing dishes, vacuuming, etc. These activities do not necessarily count as exercise. Be sure to note the distinction in these ADLs as compared to structured exercises. You need both types of movement in order to maintain an optimal level of physical activity. Structured exercise includes activities specifically geared toward a purpose, usually to improve cardiovascular fitness, strength, flexibility, or balance and agility. There are specific definitions as to what constitutes exercise. Some activities may fit into both categories (exercise and ADLs) based on the intensity and duration. One example of an activity fitting both categories would be walking while mowing the lawn. How do I get started? Before starting an exercise program, it is important to talk with your doctor to determine any limitations you may have in regards to exercise. Exercise can be safe for almost anyone. However, certain limitations may be placed on individuals who suffer from chronic conditions such as arthritis, heart disease, hypertension, diabetes, osteoporosis, and certain pulmonary conditions, among others. Building an exercise routine takes time. Slowly incorporate exercise into your weekly routine, starting with a reasonable amount you can build on. Eventually, you should be able to incorporate some type of physical activity into every day. Determine what activities you enjoy. Exercise should not be looked at primarily as a chore. Findingactivities that interest you are important because you are more likely to maintain them correction. Try something new. There are many new forms of exercise that are becoming more popular and accessible. When possible, try some of the new fitness trends. Changing your routine and trying new things can help prevent boredom. Make sure that if your exercise routine is primarily outdoors you are able to have a back-up plan for bad weather. You should plan for consistency. Exercise benefits are best seen if the routine is maintained with minimal disruption. Everyone has a different tolerance for exercise. If you start experiencing feelings of burnout, reevaluate your routine. Make changes that you feel can be maintained. You can add more later once you feel more comfortable with your routine. Components of an exercise program There are four main components of a well-rounded exercise program. These are: cardiovascular exercises (aerobic exercise) strengthening exercises flexibility exercises balance and agility exercises Aerobic exercises Aerobic exercise helps to improve heart and lung function. Walking, swimming, running, biking, dancing, and hiking are just a few examples of aerobic exercise. The benefits of aerobic exercise include: lower cholesterol and blood pressure increased endurance a lower resting heart rate weight loss or maintenance stress relief improved sleep Aerobic exercise should be performed for 30 minutes, five to seven days per week. If time management is an issue, or poor endurance is an issue, break the 30 minutes into three sessions of 10 minuteseach. Strengthening exercises Strength or resistance exercises can help to maintain strong bones, break some of the stereotypes associated with aging, increase metabolism, and help to achieve or maintain a higher level of function. Resistance exercises can include the use of: machine or free weights exercise balls hand weights or bands different types of exercises (such as Pilates or calisthenics) Strength exercises for general fitness should be performed two times per week for every major muscle group. Larger muscle exercises using several joints, such as lunges or bench presses, should be spaced out to provide three to four days of rest in between sessions. Smaller muscle exercises requireas little as one day of rest in between sessions. Strength training is based on the overload principle. If you feel as though your muscles have not been strained, then chances are they have not. Talk with your therapist or allied health provider to determine what resistance exercises are safe for you, and what weight or resistance is appropriate. Flexibility exercises Flexibility is an important fitness component that helps to maintain pain-free [id number]. There are many different reasons why stretching is important, and orthopedic issues may include different recommendations specific to any conditions you may have. For general fitness, however, it is important to stretch either after exercise or independent of exercise so that your muscles are generallynot cold. It is no longer recommended to stretch prior to exercise. However, a proper warm-up of a lower-intensity cardiovascular exercise is imperative. Stretching can be performed daily, or several times a day, depending on the recommendations of yourtherapists. Yoga and jerrod chi can also help with stretching. Ballistic stretching (or bouncing during a stretch) is not recommended. Static stretching is when a stretch is held for a specific length of time, usually several seconds to half a minute, and repeated. Dynamic stretching is a method of stretching where the body is moving fluidly while attempting to improve flexibility. Ask your therapist which methods of flexibility are appropriate for you. Balance/agility exercises Balance and agility are important not only in athletic performance, but also in general fitness. Balance can be negatively impacted by the aging process. It is never too early to try and improve balance and agility to negate this aspect of aging. Depending on any limitations you may have, not all exercises to improve balance may be appropriate for you. More basic or beginner levels of balance include standing on one foot, walking heel to toe, or standing on your toes. Jerrod chi is also an excellent balance exercise for beginner and intermediate balance abilities. Intermediate levels of balance exercise may also include using the exercise ball, performing basic exercises with your eyes closed,or performing one-legged exercises. More advanced exercises include many exercise ball exercises and the BOSU ball. Talk with your therapist to determine your ability level and for suggestions to help improve balance and agility. Source www.cdc.gov/ Copyright 6122-3969 [facility]. All rights reserved This information is provided by the [facility] and is not intended to replace the medical advice of your doctor or health care provider. Please consult your health care provider for advice about a specific medical condition. For additional health information, please contact the Center for Consumer Health Information at the [facility] or toll-free extension [phone]. If you prefer, you may visit [email or web address] or [email or web address]. This document was last reviewed on: 2017 index#7209 Hematuria So many things can cause blood in your urine (pee), including infections, vigorous exercise and kidney disease. However, you shouldn t ignore hematuria (blood in your urine). Healthcare providers canhelp you find the cause and the best treatment. Urology [phone] Kidney Medicine [phone] APPOINTMENTS & LOCATIONS REQUEST AN APPOINTMENT Symptoms and Causes Diagnosis and Tests Management and Treatment Prevention Living With OVERVIEW Hematuria, or blood in the urine, can be gross (blood visible without a microscope) or microscope (visible with a microscope only). Urine can tell a health story, with colors ranging from pale yellow to yellow to mialdys to red, withred possibly indicating bloody urine (hematuria). What is blood in urine (hematuria)? Hematuria is the medical name for the presence of blood cells in urine (pee). Healthcare providers label blood in urine as gross, microscopic or dipstick. Gross hematuria occurs when there's enough blood present in your urine that it's visible to the naked eye. It can turn toilet water a pale pink or bright red color. Microscopic hematuria happens when your urine has blood in it, but the amount is too small for humans to see. In fact, you need a microscope to see it. Dipstick hematuria results when oxidation of a urine test strip causes a color change. It doesn t always mean that blood cells are present in your urine. Dipstick tests have relatively high false-positive rates. [facility] is a non-profit academic medical center. Advertising on our site helps support ourmission. We do not endorse non-[facility] products or services. Policy How common is blood in urine? Blood in urine is a common finding. It affects an estimated 2% to 30% of the [place] adult population. SYMPTOMS AND CAUSES What are the causes of hematuria? There can be a number of different causes of blood in your urine, some more serious than others. These conditions can involve infections or stones, including: Urinary tract infection (UTI): This means that you have an infection in any part of your urinary system. Pyelonephritis: This describes an infection that has reached as far as your kidney. Cystitis: This condition refers to an inflamed bladder, which can have infectious and non-infectious causes. Urinary stone disease: This term describes stones found in your urinary system, including kidney stones, bladder stones and ureteral stones. Other conditions leading to blood in urine may include: Enlarged prostate (benign prostatic hypertrophy): In this non-cancerous condition, your prostate becomes larger. The prostate is a body part that produces semen. Injury to your urinary tract: You have blunt or penetrating trauma from accidents or assault. Menstruation: You may see blood in your urine when you have your period. Endometriosis: In this condition, fragments of the inner lining of the uterus grow in places other than inside the uterus. Kidney (renal) disease: With this chronic condition, damage to your kidneys means they don t work as well. Sickle cell disease: This inherited condition affects your red blood cells. In addition to these other conditions, cells growing uncontrollably in certain body parts -- what we know as cancer -- can cause blood in your urine. These conditions include: Bladder cancer. Kidney cancer. Ureteral cancer. Urethral cancer. Prostate cancer. What are the signs and symptoms of hematuria? Many times, there are no symptoms except blood in your urine. When this happens, your providers maysay that you re asymptomatic. If you're having symptoms, this may include frequent or painful urination or urination that is urgent or needs to happen right away. There can also be associated nausea,vomiting, fevers, chills or pain in your back or lower abdomen. Although blood in your urine doesn t always mean you have a disease, it can be an important warningsign to a possible health problem. Don t ever ignore bloody urine. Contact a healthcare provider as soon as you find blood in your urine, as earlier detection for any problem is helpful. DIAGNOSIS AND TESTS How is hematuria diagnosed? During your appointment, your healthcare provider will take a medical history and perform a physical examination that might include a pelvic exam or a digital rectal exam. These things will help yourprovider understand your symptoms better. Your provider may order other tests. These tests may include: Urinalysis: A test on a urine sample. Urine culture: A urine test that checks for an infection. Urine cytology: A urine test that checks for any abnormal-appearing cells. Cystoscopy: A test that uses a device called a cystoscope to look at the inside of your bladder andurethra. Ultrasound: A test that uses ultrasound waves to examine your kidney, ureters and bladder. Computed tomography (CT) scan: A test that uses X-rays and computers to make cross-sectional imagesof your abdomen and pelvis. Magnetic resonance imaging (MRI) scan: A test that uses a large magnet, radio waves and a computer to produce images of your organs and structures. MANAGEMENT AND TREATMENT How is blood in urine treated? Treating blood in your urine depends strongly on the actual cause of the hematuria. Your provider will use the information collected from your medical history, physical exam and test results to work with you to find the best treatment. Medications to treat causes of blood in urine For hematuria caused by infections, your provider will prescribe antibiotics. These antibiotics work by killing the bacteria causing the infection, which should stop the bleeding. For an enlarged prostate, urologists typically use two classes of medications to treat this condition: alpha-blockers and the 0-vaobh-bvdmoeegq inhibitors. For cancer, your provider will conduct treatment that best fits the stage and level of the disease and is in line with your goals of care. This may include surveillance, surgery, radiation, immunotherapy, chemotherapy, hormone therapy or combinations of these options. For sickle cell disease, your provider may prescribe disease-modifying agents like hydroxyurea, pain medications, antibiotics and drugs that prevent blood cells from dying or forming into garcía. For kidney disease, your provider may prescribe several different types of medications. These may include diuretics, drugs to lower blood pressure and cholesterol, and erythropoietin to build red blood cells if you re anemic. For endometriosis, your provider may suggest hormone-related medications. Other ways to treat causes of blood in urine For hematuria caused by an enlarged prostate that isn t relieved by medications, your provider may suggest surgery. For kidney disease, you might need dialysis to filter out waste or even a kidney transplant. For cancers, your urologist may be part of a multidisciplinary care team. What complications are related to blood in urine? Treatments for causes of hematuria, including medications and procedures, may each have side effects. These vary by the type of treatment. However, untreated hematuria could lead to bigger problems, especially if the cause is more seriousthan vigorous exercise. A healthcare provider should treat any condition that causes blood in your urine. If the cause is something like cancer or kidney disease, early detection leads to early treatment. These things lead to better outcomes. PREVENTION Who is at risk for blood in their urine? People who are most likely to have blood in their urine are those with existing diseases known to cause hematuria, such as infections of the urinary system, urological anatomical abnormalities, family histories of urologic diseases and certain genetic conditions. For instance, you may be more at risk if you have a kidney disease or kidney stones or a family history of kidney disease. You may also be more at risk if you take certain types of medications, such as blood thinners and some types of pain relievers. This shouldn t delay the same workup if you do see blood in your urine. However, certain actions may increase your chances of having blood in your urine. These include: Smoking. Overusing pain medications. History of radiation exposure and certain chemicals. Occupational risks (metals, fumes, dyes, rubbers). Exposure to certain chemicals and/or radiation. Running or jogging for long distances. Vigorous sexual activity. You may decrease your chances of having blood in your urine by avoiding some of these behaviors. Its true that staying properly hydrated by drinking enough fluids -- preferably, water -- is good foryour urinary tract and your body. If you re dehydrated, your pee is darker in color. If you re extremely dehydrated, you could possibly have bloody urine. LIVING WITH When should I contact my doctor? You shouldn t ever ignore blood in your urine. It s important to contact a healthcare provider if you see blood in your urine or if you have other symptoms related to hematuria. A note from [facility] There s no need to panic if you see blood in your urine, especially if you have your period or you ve just eaten something like beets. However, it s a good idea to give your healthcare provider a call. It s better to catch any kind of condition early, even if it s just a UTI. Your provider will work with you to find out what s causing blood in your urine and a successful treatment. documented in this [facility] History of Present illness Narrative* Natasha Keene MD - 07/24/2022 8:41 AM EST Images from the original note were not included. Natasha Keene MD [facility] Date of Evaluation: 07/24/2022 Patient Name: Fadumo Cantor : 1960 Chief Complaint: Patient presents with: ED Follow-up: bilateral flank pain and hematuria Subjective Ms. Cantor is a 62 year old female who presents for: ED follow-up. HPI Ms Wetzel, 62 yo F PMH: factor V leiden deficiency on coumadin, uterine cancer s/p hysterectomy, remote history of DVTs/p IVC filter placement. She recently visited ED on 07/20/2022 with hx of hematuria and b/l flank pain that happened 3 days prior to presentation to ED. 3 days prior to ED visit her INR was supra therapeutic to 6. And, she held off coumadin at the timewhen she went to ED, INR on that day was 1.4. Denies taking any over the counter pain medications, no herbs, no steroid, no hx of recent chemotherapy. No hx of recent trauma, UA negative for UTI. Reviewed, CT abd/pel with IV contrast was obtained in ED: negative for hydronephrosis, retroperitoneal bleed or renal infarct. Found to have Left nonobstructing renal stone measuring 4 mm. Today, she denies any ongoing bleeding, no flank pain. However, in ROS does complains of mild central chest pain, non radiating, constant, with no radiation, no sob, no light headedness or dizziness. No LE swelling. INR checked today in the clinic is 2.4. Review of Systems GENERAL: Denies fever, chills, weight loss, or fatigue/ weakness. HEENT: Denies any headaches, blurry vision, or sore throat. NECK: Negative for lumps, goiter, pain and significant neck swelling RESPIRATORY: Negative for SOB, cough and chest pain. CARDIOVASCULAR: Negative for chest pain, leg swelling, CHF or palpitations GI: Negative for pain, nausea, vomiting, diarrhea or constipation. : No history of dysuria, frequency or incontinence MUSCULOSKELETAL: complains of chronic back pain, uses cane while walking. SKIN: No skin rash. PSYCH: Negative for sleep disturbance, mood disorder and recent psychosocial stressors Neuro: Negative for motor or sensory deficits. No numbness or tingling. 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 -clip- MRI COMPATIBLE ICD Description Code Date Cerebral hemorrhage (HCC) - 2008 from anuerysm Factor V Leiden mutation (HCC) - hetero Gastroesophageal reflux disease 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 H/O vertigo - has seen neuro in past History 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 therapy - Coumadin History of malignant neoplasm of uterine body Hyperglycemia Hyperlipidemia Immunization refused Intervertebral disc disorder - lumbar disk Known medical problems 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 Osteopenia Peripheral nerve disease Phlebitis and thrombophlebitis of unspecified site Skin sensation disturbance Vasomotor rhinitis Vitamin D deficiency PAST SURGICAL HISTORY Procedure Laterality Date BRAIN SURGERY HX 01/01/2010 drain fluid off brain CHOLECYSTECTOMY 11/2014 DR AVLAREZ COLONOSCOPY [address] EGD 2014 minimal gastritis HYSTERECTOMY HX 09/1994 Anesth, hysterectomy-HAS OVARIES PAST SURGICAL HISTORY OF 06/15/2009 craniotomy and brain aneurysm PAST SURGICAL HISTORY OF 07/07/2009 inferior vena cava filter placement PAST SURGICAL HISTORY OF 2008 Aneurysm repair-ophalmic/ clip in no MRI PAST SURGICAL HISTORY OF 08/01/2013 MOLE REMOVAL-LT ABDOMEN, RT THIGH, RT UPPER BACK FAMILY HISTORY Problem Relation Age of Onset other (Bleeding disorder) Mother Stroke Father 86 Ischemic Heart Disease Father other (Bleeding disorder) Father other (Bleeding disorder) Brother Breast Cancer Other AUNT Cancer Other other (cancer breast) Other aunt other (cancer bone) Other uncle other (heafrt dis.) Other gf x2 Social History Tobacco Use Smoking status: Former Packs/day: 0.50 Years: 5.00 Pack years: 2.50 Types: Cigarettes Quit date: 07/18/1976 Years since quittin.0 Smokeless tobacco: Never Tobacco comments: quit 1979 Substance Use Topics Alcohol use: No Drug use: No There are no active hospital problems to display for this patient. PAIN EVALUATION 07/24/2022 0828 Pain Level: 2 Current Outpatient Medications Medication Sig Dispense Refill cyanocobalamin (VITAMIN B-12) 100 mcg tab Take 100 mcg by mouth. Zinc Gluconate 50 mg tablet Take 50 mg by mouth. warfarin (COUMADIN) 7.5 mg tablet Take 11.25mg on Thursday, Thursday, and Thursday and 7.5mg on all other days of the week or as directed polyethylene glycol 3350 (MIRALAX) 17 gram/dose powder Take 17 g by mouth once daily. 1 Bottle 2 Cholecalciferol, Vitamin D3, (VITAMIN D-3) 2,000 unit cap Take 1 capsule by mouth once daily. acetaminophen(TYLENOL EXTRA STRENGTH 500 MG TAB) Take two(2) tablets every four to six(6) hours as needed for pain. 0 atorvastatin (LIPITOR) 10 mg tablet TAKE 1 TABLET BY MOUTH EVERY DAY AT BEDTIME (Patient not taking: Reported on 07/24/2022) 30 tablet 5 EPINEPHrine (EPIPEN) 0.3 mg/0.3 mL auto-injector Inject 0.3 mL intramuscularly as needed. (Patient not taking: Reported on 07/24/2022) 1 Each 1 No current facility-administered medications for this visit. I have confirmed and edited as necessary the chief complaint, medications, past medical, family andsocial histories obtained by others. Objective BP 115/78 Pulse 75 Temp 97 Resp 16 Ht 5' 3 (1.60m) Wt 160 lb (72.6kg) SpO2 100% BMI 28.35 kg/(m^2). Physical Exam Constitutional: Oriented to person, place, and time. Appears well-developed and well-nourished. No distress. HENT: Normocephalic and atraumatic. Oropharynx is clear and moist. No oropharyngeal exudate. poor dentition. Neck: Neck supple. No JVD present. Cardiovascular: Normal rate, regular rhythm, normal heart sounds and intact distal pulses. Exam reveals no gallop and no friction rub. No murmur heard. Pulmonary/Chest: Effort normal and breath sounds normal. No respiratory distress. Abdominal: Soft, nontender. Bowel sounds are normal. No distension or masses. There is no rebound and no guarding. Musculoskeletal: Normal range of motion. Exhibits no edema. Neurological: Alert and oriented to person, place, and time. Skin: Skin is warm and dry. Capillary refill takes less than 2 seconds. No rash noted. Data Reviewed: Most recent labs and imaging results. Most recent labs Most recent imaging Most recent EKG A/P: ASSESSMENT/PLAN: 1. Benign essential microscopic hematuria - ICD9: 599.72, ICD10: R31.1 (primary diagnosis) - CBC - URINALYSIS, REFLEX MICROSCOPIC 2. Mixed hyperlipidemia - ICD9: 272.2, ICD10: E78.2 - to be determined upon return of lab results -currently not on medications since she didn't get refill and last checked lipid was 2 years ago. Need to recheck before starting the medications. 3. Overweight (BMI 25.0-29.9) - ICD9: 278.02, ICD10: E66.3 Stable - Behavioral intervention 4. 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 -continue current dose of coumadin. 5. Heterozygous factor V Leiden mutation (HCC) - ICD9: 289.81, ICD10: D68.51 6. Atypical chest pain - ICD9: 786.59, ICD10: R07.89 Chest pain of unclear etiology, patient with significant risk factor(s) of Hyperlipidemia On 07/20/2022 had EKG done showed sinus rhythm with non specific ST changes, troponin x 2 was negative. Will continue to monitor for. If continues to have chest pain then will get echo, possible cardiac stress test to r/o ischemic heart disease. 7. Renal stone - ICD9: 592.0, ICD10: N20.0 Non obstructive 4mm on left kidney. Started on Flomax Instructed to drink plenty of water. Natasha Keene MD Discussed the above with the patient using shared decision making. The patient is in agreement with the diagnostic and treatment plans. [facility] in this [facility] History of Present illness Narrative* Flor OlgaDANNIELLE gee - 07/21/2022 2:27 PM EST ED Follow Up: patient presented to the ED with blood in her urine. Patient discharged from [facility] ED on 07/20/22. 1. How are you feeling since your ED visit? Patient states that she is doing ok today. The symptomsshe was experiencing yesterday have cleared up. Back pain has improved. Her INR today was 1.4. she did take the 7.5mg of her coumadin last night. Patient is scheduled for an ED follow up in the office for 07/24/[address] Keene. Have your symptoms improved or resolved? Yes 2. Were you prescribed any medications while in the ED or advised to stop any medication? No - If yes, were you able to fill your prescriptions? Not applicable -if stopped medication, what was the medication? 3. Were you advised to schedule a follow up appointment with your provider? Yes - If no, Do you feel like you need an appointment scheduled? Not applicable - If yes, Do you need this scheduled now or has this already been scheduled? Yes 4. 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 No 5. Is there anything else I can do for you today? No Flor Guerra LPN 07/21/22 2:32 PM documented in this encounterMet[facility]01-23-2023 Miscellaneous Notes* Telephone Encounter - Flor Guerra LPN - 07/21/2022 2:15 PM EST Patient is set for 820 this coming 07/24/[address] Keene for ED follow up. Flor Guerra LPN 07/21/22 2:16 PM * Telephone Encounter - Juan Jose Stafford MD - 07/21/2022 1:01 PM EST Reviewed. Agree with plan. Please call pt and see if she will come in for ER f/up d/t ongoing flankpain. * Telephone Encounter - Kaleigh Stock [facility] - 07/21/2022 10:25 AM EST Referred by Dr. Stafford Indication: Recurrent DVT with most recent being 2008 or 2009, Factor V Leiden mutation INR goal: 2.0-3.0 Duration: indefinite Bridging assessment and details: History of recurrent VTE with Factor V Leiden mutation would consider bridging. Consult agreement signed by physician. Patient has been notified verbally and/or in writing of the terms of the pharmacist-physician consult agreement for the anticoagulation clinic. Date: 10/06/18 Not on DOAC due to patient choice. PT INR Date Value Ref Range Status 07/21/2022 1.4 Final Current warfarin dose: 11.25mg on Thursday, Thursday, and Thursday and 7.5mg on all other days of the week Description RESUME 11.25mg on Thursday, Thursday, and Thursday and 7.5mg on all other days of the week. Recheck INR in 3 days. INR was 2.0 on 12/23. She had been trying to be consistent with greens, but wanted to eat more whichlowers INR. Increased warfarin dose as above to account for her eating more vitamin K foods. INR has been therapeutic since with last INR 2 weeks ago. INR on 07/18 was then very elevated. She was started on a 15 day prednisone taper 2 weeks ago which could elevated INR. However, she reported that she only took 3 doses and then stopped. She reported that she usually eats 2-3 salads per week which contain darker greens but she had not had any in theprior week. This could have been contributing to elevated INR but would not have expected INR to increase to this decrease. Instructed patient to hold warfarin for 3 days. Patient reported to the ED on 07/20. She was having hematuria despite her INR decreasing. She was also having flank pain. A full work up was completed which was negative. She was prescribed tramadol but has not yet picked up from the pharmacy. She reports that this pain is still present and different from her usual back back. INR was 1.4 in the ED soshe was instructed to resume her usual warfarin dose. INR is still 1.4 today. Will continue currentwarfarin dose but recheck in 3 days. She is back to her usual diet. She had a salad on 07/18 and broccoli on 07/19. Next INR: 07/24/22 Next phone assessment: 07/24/22 Kaleigh Stock RPh documented in this encounterMet[facility]23 Miscellaneous Notes* Telephone Encounter - Kaleigh Stock RPh - 07/18/2022 10:29 AM EST Referred by Dr. Stafford Indication: Recurrent DVT with most recent being 2008 or 2009, Factor V Leiden mutation INR goal: 2.0-3.0 Duration: indefinite Bridging assessment and details: History of recurrent VTE with Factor V Leiden mutation would consider bridging. Consult agreement signed by physician. Patient has been notified verbally and/or in writing of the terms of the pharmacist-physician consult agreement for the anticoagulation clinic. Date: 10/06/18 Not on DOAC due to patient choice. PT INR Date Value Ref Range Status 07/18/2022 6.0 Final Current warfarin dose: 11.25mg on Thursday, Thursday, and Thursday and 7.5mg on all other days of the week Description HOLD warfarin for next 3 days. Recheck INR in 3 days. INR was 2.0 on 12/23. She had been trying to be consistent with greens, but wanted to eat more whichlowers INR. Increased warfarin dose as above to account for her eating more vitamin K foods. INR has been therapeutic since with last INR 2 weeks ago. INR today is now very elevated. She was started on a 15 day prednisone taper 2 weeks ago which could elevated INR. However, she reports that she only took 3 doses and then stopped. She reports that she usually eats 2-3 salads per week which contain darker greens. She has not had any salads this week. This could be contributing to elevated INR but would not have expected INR to increase to this decrease. She has not taken warfarin today. Will have her hold warfarin for the next 3 days. She reports that she will return to usual diet and will eat a large salad today to get vitamin K. Patient reports a bloody nose yesterday and then hematuria last night and this morning. She denies any other urinary symptoms. Counseled her that she needs to go to ED with any further bleeding symptoms. Next INR: 07/21/22 Next phone assessment: 07/21/22 Kaleigh Stock RPh documented in this encounterMet[facility]12-22-2022 Miscellaneous Notes* Telephone Encounter - Kaleigh Stock RPh - 06/19/2022 12:46 PM EST Referred by Dr. Stafford Indication: Recurrent DVT with most recent being 2008 or 2009, Factor V Leiden mutation INR goal: 2.0-3.0 Duration: indefinite Bridging assessment and details: History of recurrent VTE with Factor V Leiden mutation would consider bridging. Consult agreement signed by physician. Patient has been notified verbally and/or in writing of the terms of the pharmacist-physician consult agreement for the anticoagulation clinic. Date: 10/06/18 Not on DOAC due to patient choice. PT INR Date Value Ref Range Status 06/19/2022 2.3 Final Current warfarin dose: 11.25mg on Thursday, Thursday, and Thursday and 7.5mg on all other days of the week Description CONTINUE 11.25mg on Thursday, Thursday, and Thursday and 7.5mg on all other days of the week. Recheck in 2 weeks on home meter. INR was 2.0 on 12/23. She had been trying to be consistent with greens, but wanted to eat more whichlowers INR. Increased warfarin dose as above to account for her eating more vitamin K foods. INR has been therapeutic since including today. Will continue this dose. Discussed with patient on the phone who read back instructions and verbalized understanding. Next INR: 06/06/22 Next phone assessment: 06/20/22 Patti Conn RPh documented in this encounterMet[facility]11-28-2022 Miscellaneous Notes* Telephone Encounter - Patti Conn RPh - 05/26/2022 8:48 AM EST Referred by Dr. Stafford Indication: Recurrent DVT with most recent being 2008 or 2009, Factor V Leiden mutation INR goal: 2.0-3.0 Duration: indefinite Bridging assessment and details: History of recurrent VTE with Factor V Leiden mutation would consider bridging. Consult agreement signed by physician. Patient has been notified verbally and/or in writing of the terms of the pharmacist-physician consult agreement for the anticoagulation clinic. Date: 10/06/18 Not on DOAC due to patient choice. PT INR Date Value Ref Range Status 05/23/2022 2.1 Final Current warfarin dose: 11.25mg on Thursday, Thursday, and Thursday and 7.5mg on all other days of the week Description CONTINUE 11.25mg on Thursday, Thursday, and Thursday and 7.5mg on all other days of the week. Recheck in 2 weeks on home meter. INR was 2.0 on 12/23. She had been trying to be consistent with greens, but wanted to eat more whichlowers INR. Increased warfarin dose as above to account for her eating more vitamin K foods. INR has been therapeutic since including today. Will continue this dose. Discussed with patient on the phone who read back instructions and verbalized understanding. Next INR: 06/06/22 Next phone assessment: 06/20/22 Patti Conn RPh documented in this encounterMet[facility]10-21-2022 Miscellaneous Notes* Telephone Encounter - Patti Conn RPh - 04/18/2022 9:12 AM EDT Referred by Dr. Stafford Indication: Recurrent DVT with most recent being 2008 or 2009, Factor V Leiden mutation INR goal: 2.0-3.0 Duration: indefinite Bridging assessment and details: History of recurrent VTE with Factor V Leiden mutation would consider bridging. Consult agreement signed by physician. Patient has been notified verbally and/or in writing of the terms of the pharmacist-physician consult agreement for the anticoagulation clinic. Date: 10/06/18 Not on DOAC due to patient choice. PT INR Date Value Ref Range Status 04/17/2022 2.5 Final Current warfarin dose: 11.25mg on Thursday, Thursday, and Thursday and 7.5mg on all other days of the week Description CONTINUE 11.25mg on Thursday, Thursday, and Thursday and 7.5mg on all other days of the week. Recheck in 2 weeks on home meter. INR was 2.0 on 12/23. She had been trying to be consistent with greens, but wanted to eat more whichlowers INR. Increased warfarin dose as above to account for her eating more vitamin K foods. INR has been therapeutic since including today. Will continue this dose. Discussed with patient on the phone who read back instructions and verbalized understanding. Next INR: 05/01/22 Next phone assessment: 05/15/22 Patti Conn RPh documented in [facility] encounter[facility] Miscellaneous Notes* Telephone Encounter - Juan Jose Stafofrd MD - 03/25/2022 5:36 PM EDT Reviewed. Agree with plan. * Telephone Encounter - Kaleigh Stock RPh - 03/25/2022 3:40 PM EDT Referred by Dr. Stafford Indication: Recurrent DVT with most recent being 2008 or 2009, Factor V Leiden mutation INR goal: 2.0-3.0 Duration: indefinite Bridging assessment and details: History of recurrent VTE with Factor V Leiden mutation would consider bridging. Consult agreement signed by physician. Patient has been notified verbally and/or in writing of the terms of the pharmacist-physician consult agreement for the anticoagulation clinic. Date: 10/06/18 Not on DOAC due to patient choice. PT INR Date Value Ref Range Status 03/25/2022 3.0 Final Current warfarin dose: 11.25mg on Thursday, Thursday, and Thursday and 7.5mg on all other days of the week Description CONTINUE 11.25mg on Thursday, Thursday, and Thursday and 7.5mg on all other days of the week. Recheck in 2 weeks on home meter. INR was 2.0 on 12/23. She had been trying to be consistent with greens, but wanted to eat more whichlowers INR. Increased warfarin dose as above to account for her eating more vitamin K foods. INR has been therapeutic since including today. Will continue this dose. Discussed with patient on the phone who read back instructions and verbalized understanding. Next INR: 04/08/22 Next phone assessment: 04/22/22 Kaleigh Stock RPh documented in this encounter[facility]22 Miscellaneous Notes* Telephone Encounter - Patti Conn RPh - 02/27/2022 10:04 AM EDT Referred by Dr. Stafford Indication: Recurrent DVT with most recent being 2008 or 2009, Factor V Leiden mutation INR goal: 2.0-3.0 Duration: indefinite Bridging assessment and details: History of recurrent VTE with Factor V Leiden mutation would consider bridging. Consult agreement signed by physician. Patient has been notified verbally and/or in writing of the terms of the pharmacist-physician consult agreement for the anticoagulation clinic. Date: 10/06/18 Not on DOAC due to patient choice. PT INR Date Value Ref Range Status 02/26/2022 2.7 Final Current warfarin dose: 11.25mg on Thursday, Thursday, and Thursday and 7.5mg on all other days of the week Description CONTINUE 11.25mg on Thursday, Thursday, and Thursday and 7.5mg on all other days of the week. Recheck in 2 weeks on home meter. INR was 2.0 on 12/23. She had been trying to be consistent with greens, but wanted to eat more whichlowers INR. Increased warfarin dose as above to account for her eating more vitamin K foods. INR has been therapeutic since including today. Will continue this dose. Discussed with patient on the phone who read back instructions and verbalized understanding. Next INR: 03/12/22 Next phone assessment: 03/26/22 Patti Conn RPh documented in this encounter[facility]22 Miscellaneous Notes* Telephone Encounter - Patti Conn RPh - 01/30/2022 3:28 PM EDT Referred by Dr. Stafford Indication: Recurrent DVT with most recent being 2008 or 2009, Factor V Leiden mutation INR goal: 2.0-3.0 Duration: indefinite Bridging assessment and details: History of recurrent VTE with Factor V Leiden mutation would consider bridging. Consult agreement signed by physician. Patient has been notified verbally and/or in writing of the terms of the pharmacist-physician consult agreement for the anticoagulation clinic. Date: 10/06/18 Not on DOAC due to patient choice. PT INR Date Value Ref Range Status 01/30/2022 2.0 Final Current warfarin dose: 11.25mg on Thursday, Thursday, and Thursday and 7.5mg on all other days of the week Description CONTINUE 11.25mg on Thursday, Thursday, and Thursday and 7.5mg on all other days of the week. Recheck in 2 weeks on home meter. INR has been mostly stable on current dose. INR was then low on 05/10. She reported that on 05/06 she checked her INR and it was 3.6. She did not report this value. She then ate broccoli. Low INR likely due to the extra vitamin K. Did not adjust warfarin dose. INR had been stable. INR was is at bottom of range at 2.0 on 11/01. She reported eating more salads and wanted to continuewith this. Increased dose to account for the change in diet. INR was 2.0 again on 12/23. She did increase warfarin dose as instructed. She had been trying to be consistent with greens, but wanted to eat more which will lower INR. Increased warfarin dose as above to account for her eating more vitamin K foods. INR is 2.0 again today. The patient has increased greens and plans to be consistent with her current diet. Will continue this dose. Discussed with patient on the phone who read back instructions and verbalized understanding. Next INR: 02/13/22 Next phone assessment: 02/27/22 Patti Conn RPh documented in this encounterMet[facility]08-04-2022 Miscellaneous Notes* Telephone Encounter - Wendy Cruz LPN - 01/30/2022 8:33 AM EDT Pharmacy faxed requesting the following refill Refill(s) Requested: Pending Prescriptions Disp Refills WARFARIN 7.5 MG TABLET 90 tablet 1 Sig: TAKE 1 TABLET BY MOUTH EVERY DAY ÁNGELA: Yes ALLERGIES Allergen Reactions Mushroom Other: See Comments Get heartburn Other reaction(s): AOF (home) [id number] (cell) Last Office Visit Date: 02/07/2021 Last [facility] Visit: Visit date not found Future Appointment: Visit date not found The patients preferred pharmacy has been captured for this encounter? yes Request is for script(s) to be escript to pharmacy. Wendy Cruz LPN documented in this encounterMet[facility]08-02-2022 Miscellaneous Notes* Telephone Encounter - Eli Naranjo LPN - 01/28/2022 1:58 PM EDT Called and spoke with pt and reminded her to do inr, Pt voiced agreement and will do today or tomorrow Eli Naranjo LPN * Telephone Encounter - Kaleigh Stock RPh - 01/27/2022 3:23 PM EDT Patient is due to check INR on home meter. Please call to remind patient. Kaleigh Stock RPh documented in this encounterMet[facility]07-01-2022 Miscellaneous Notes* Telephone Encounter - Graham Rachel - 12/27/2021 2:48 PM EDT Left patient voicemail to call and schedule her 1 year follow up for medication check and labs due 02/07/2022. documented in this encounterMet[facility]06-27-2022 Miscellaneous Notes* Telephone Encounter - Juan Jose Stafford MD - 12/23/2021 2:08 PM EDT Reviewed. Agree with plan. * Telephone Encounter - Patti Conn RPh - 12/23/2021 1:51 PM EDT Referred by Dr. Stafford Indication: Recurrent DVT with most recent being 2008 or 2009, Factor V Leiden mutation INR goal: 2.0-3.0 Duration: indefinite Bridging assessment and details: History of recurrent VTE with Factor V Leiden mutation would consider bridging. Consult agreement signed by physician. Patient has been notified verbally and/or in writing of the terms of the pharmacist-physician consult agreement for the anticoagulation clinic. Date: 10/06/18 Not on DOAC due to patient choice. PT INR Date Value Ref Range Status 12/23/2021 2.0 Final Current warfarin dose: 11.25mg on Thursday and and 7.5mg on all other days of the week Description INCREASE to 11.25mg on Thursday, Thursday, and Thursday and 7.5mg on all other days of the week. Recheck in 2 weeks on home meter. INR has been mostly stable on current dose. INR was then low on 05/10. She reported that on 05/06 she checked her INR and it was 3.6. She did not report this value. She then ate broccoli. Low INR likely due to the extra vitamin K. Did not adjust warfarin dose. INR had been stable. INR was is at bottom of range at 2.0 on 11/01. She reported eating more salads and wanted to continuewith this. Increased dose to account for the change in diet. INR is 2.0 again today. She did increase warfarin dose as instructed. She has been trying to be consistent with greens, but would like to eat more. This will lower INR. Will increase warfarin dose asabove to account for her eating more vitamin K foods. Discussed with patient on the phone who read back instructions and verbalized understanding. Next INR: 01/06/22 Next phone assessment: 01/20/22 Patti Conn RPh documented in this encounterMet[facility]06-27-2022 Miscellaneous Notes* Telephone Encounter - Eli Naranjo LPN - 12/23/2021 10:57 AM EDT Called and spoke with pt and she stated she is doing her INR this am and will call it in Eli Naranjo LPN * Telephone Encounter - Kaleigh Stock RPh - 12/23/2021 10:50 AM EDT Patient is overdue to check INR on home meter. Please remind patient to check INR. Kaleigh Stock RPh documented in this encounterMet[facility]05-06-2022 Miscellaneous Notes* Telephone Encounter - Juan Jose Stafford MD - 11/01/2021 3:39 PM EDT Noted. Agree with plan. * Telephone Encounter - Kaleigh Stock RPh - 11/01/2021 2:21 PM EDT Referred by Dr. Stafford Indication: Recurrent DVT with most recent being 2008 or 2009, Factor V Leiden mutation INR goal: 2.0-3.0 Duration: indefinite Bridging assessment and details: History of recurrent VTE with Factor V Leiden mutation would consider bridging. Consult agreement signed by physician. Patient has been notified verbally and/or in writing of the terms of the pharmacist-physician consult agreement for the anticoagulation clinic. Date: 10/06/18 Not on DOAC due to patient choice. PT INR Date Value Ref Range Status 11/01/2021 2.0 Final Current warfarin dose: 11.25mg on and 7.5mg on all other days of the week Description INCREASE to 11.25mg on Thursday and and 7.5mg on all other days of the week. Recheck in 2 weeks on home meter. INR has been mostly stable on current dose. INR was then low on 05/10. She reported that on 05/06 she checked her INR and it was 3.6. She did not report this value. She then ate broccoli. Low INR likely due to the extra vitamin K. Did not adjust warfarin dose. INR has been therapeutic since. INR today is at bottom of range at 2.0. She reports that she took INR on 10/29 and it was low at 1.8 but did not report the value to us. She wanted to wait and see what it was today since she takes a higher warfarin dose on Fridays. INR today is therapeutic but at the bottom of the range. She reportseating more salads recently and would like to continue with this. Will increase dose to account forthe change in diet. Next INR: 11/15/21 Next phone assessment:11/29/21 Kaleigh Stock RPh documented in this encounterMet[facility]01[facility]26[facility]2010 History of Past illness Narrative* Problem Noted Date Resolved Date Diabetes insipidus 07/24/2009 08/06/2015 DVT (deep venous thrombosis) 07/24/200904/2018 Overview: Has ivc filter in S/P cerebral aneurysm operation 07/24/2009 04/08/2018 Allergy, unspecified not elsewhere classified 11/22/2015 Pain in limb 03/30/2003 04/08/2018 Aneurysm 04/08/2018 Overview: - left post ophthalmic artey 2009 -clip- MRI COMPATIBLE ICD Description Code Date Cerebral hemorrhage 07/02/2016 Overview: - 2009 from anuerysm documented as of this encounter (statuses as of 11/01/2021) [facility] Past illness Narrative* Problem Noted Date Resolved Date Diabetes insipidus 07/24/2009 08/06/2015 DVT (deep venous thrombosis) 07/24/200904/2018 Overview: Has ivc filter in S/P cerebral aneurysm operation 07/24/2009 04/08/2018 Allergy, unspecified not elsewhere classified 11/22/2015 Pain in limb 03/30/2003 04/08/2018 Aneurysm 04/08/2018 Overview: - left post ophthalmic artey 2009 -clip- MRI COMPATIBLE ICD Description Code Date Cerebral hemorrhage 07/02/2016 Overview: - 2009 from anuerysm documented as of this encounter (statuses as of 12/23/2021) [facility] illness Narrative* Problem Noted Date Resolved Date Diabetes insipidus 07/24/2009 08/06/2015 DVT (deep venous thrombosis) 07/24/200904/2018 Overview: Has ivc filter in S/P cerebral aneurysm operation 07/24/2009 04/08/2018 Allergy, unspecified not elsewhere classified 11/22/2015 Pain in limb 03/30/2003 04/08/2018 Aneurysm 04/08/2018 Overview: - left post ophthalmic artey 2009 -clip- MRI COMPATIBLE ICD Description Code Date Cerebral hemorrhage 07/02/2016 Overview: - 2009 from anuerysm documented as of this encounter (statuses as of 12/23/2021) [facility] Narrative* Problem Noted Date Resolved Date Diabetes insipidus 07/24/2009 08/06/2015 DVT (deep venous thrombosis) 07/24/200904/2018 Overview: Has ivc filter in S/P cerebral aneurysm operation 07/24/2009 04/08/2018 Allergy, unspecified not elsewhere classified 11/22/2015 Pain in limb 03/30/2003 04/08/2018 Aneurysm 04/08/2018 Overview: - left post ophthalmic artey 2009 -clip- MRI COMPATIBLE ICD Description Code Date Cerebral hemorrhage 07/02/2016 Overview: - 2009 from anuerysm documented as of this encounter (statuses as of 12/27/2021) [facility] Narrative* Problem Noted Date Resolved Date Diabetes insipidus 07/24/2009 08/06/2015 DVT (deep venous thrombosis) 07/24/200904/2018 Overview: Has ivc filter in S/P cerebral aneurysm operation 07/24/2009 04/08/2018 Allergy, unspecified not elsewhere classified 11/22/2015 Pain in limb 03/30/2003 04/08/2018 Aneurysm 04/08/2018 Overview: - left post ophthalmic artey 2009 -clip- MRI COMPATIBLE ICD Description Code Date Cerebral hemorrhage 07/02/2016 Overview: - 2009 from anuerysm documented as of this encounter (statuses as of 01/30/2022) [facility] Narrative* Problem Noted Date Resolved Date Diabetes insipidus 07/24/2009 08/06/2015 DVT (deep venous thrombosis) 07/24/200904/2018 Overview: Has ivc filter in S/P cerebral aneurysm operation 07/24/2009 04/08/2018 Allergy, unspecified not elsewhere classified 11/22/2015 Pain in limb 03/30/2003 04/08/2018 Aneurysm 04/08/2018 Overview: - left post ophthalmic artey 2009 -clip- MRI COMPATIBLE ICD Description Code Date Cerebral hemorrhage 07/02/2016 Overview: - 2009 from anuerysm documented as of this encounter (statuses as of 01/30/2022) [facility] Narrative* Problem Noted Date Resolved Date Diabetes insipidus 07/24/2009 08/06/2015 DVT (deep venous thrombosis) 07/24/200904/2018 Overview: Has ivc filter in S/P cerebral aneurysm operation 07/24/2009 04/08/2018 Allergy, unspecified not elsewhere classified 11/22/2015 Pain in limb 03/30/2003 04/08/2018 Aneurysm 04/08/2018 Overview: - left post ophthalmic artey 2009 -clip- MRI COMPATIBLE ICD Description Code Date Cerebral hemorrhage 07/02/2016 Overview: - 2009 from anuerysm documented as of this encounter (statuses as of 02/03/2022) [facility] Narrative* Problem Noted Date Resolved Date Diabetes insipidus 07/24/2009 08/06/2015 DVT (deep venous thrombosis) 07/24/200904/2018 Overview: Has ivc filter in S/P cerebral aneurysm operation 07/24/2009 04/08/2018 Allergy, unspecified not elsewhere classified 11/22/2015 Pain in limb 03/30/2003 04/08/2018 Aneurysm 04/08/2018 Overview: - left post ophthalmic artey 2009 -clip- MRI COMPATIBLE ICD Description Code Date Cerebral hemorrhage 07/02/2016 Overview: - 2008 from anuerysm documented as of this encounter (statuses as of 02/27/2022) [facility] Narrative* Problem Noted Date Resolved Date Diabetes insipidus 07/24/2009 08/06/2015 DVT (deep venous thrombosis) 07/24/200904/2018 Overview: Has ivc filter in S/P cerebral aneurysm operation 07/24/2009 04/08/2018 Allergy, unspecified not elsewhere classified 11/22/2015 Pain in limb 03/30/2003 04/08/2018 Aneurysm 04/08/2018 Overview: - left post ophthalmic artey 2009 -clip- MRI COMPATIBLE ICD Description Code Date Cerebral hemorrhage 07/02/2016 Overview: - 2008 from anuerysm documented as of this encounter (statuses as of 03/25/2022) [facility] Narrative* Problem Noted Date Resolved Date Diabetes insipidus 07/24/2009 08/06/2015 DVT (deep venous thrombosis) 07/24/200904/2018 Overview: Has ivc filter in S/P cerebral aneurysm operation 07/24/2009 04/08/2018 Allergy, unspecified not elsewhere classified 11/22/2015 Pain in limb 03/30/2003 04/08/2018 Aneurysm 04/08/2018 Overview: - left post ophthalmic artey 2009 -clip- MRI COMPATIBLE ICD Description Code Date Cerebral hemorrhage 07/02/2016 Overview: - 2009 from anuerysm documented as of this encounter (statuses as of 04/18/2022) [facility] Narrative* Problem Noted Date Resolved Date Diabetes insipidus 07/24/2009 08/06/2015 DVT (deep venous thrombosis) 07/24/200904/2018 Overview: Has ivc filter in S/P cerebral aneurysm operation 07/24/2009 04/08/2018 Allergy, unspecified not elsewhere classified 11/22/2015 Pain in limb 03/30/2003 04/08/2018 Aneurysm 04/08/2018 Overview: - left post ophthalmic artey 2009 -clip- MRI COMPATIBLE ICD Description Code Date Cerebral hemorrhage 07/02/2016 Overview: - 2009 from anuerysm documented as of this encounter (statuses as of 05/26/2022) [facility] Narrative* Problem Noted Date Resolved Date Diabetes insipidus 07/24/2009 08/06/2015 DVT (deep venous thrombosis) 07/24/200904/2018 Overview: Has ivc filter in S/P cerebral aneurysm operation 07/24/2009 04/08/2018 Allergy, unspecified not elsewhere classified 11/22/2015 Pain in limb 03/30/2003 04/08/2018 Aneurysm 04/08/2018 Overview: - left post ophthalmic artey 2009 -clip- MRI COMPATIBLE ICD Description Code Date Cerebral hemorrhage 07/02/2016 Overview: - 2009 from anuerysm documented as of this encounter (statuses as of 06/20/2022) [facility] Narrative* Problem Noted Date Resolved Date Diabetes insipidus 07/24/2009 08/06/2015 DVT (deep venous thrombosis) 07/24/200904/2018 Overview: Has ivc filter in S/P cerebral aneurysm operation 07/24/2009 04/08/2018 Allergy, unspecified not elsewhere classified 11/22/2015 Pain in limb 03/30/2003 04/08/2018 Aneurysm 04/08/2018 Overview: - left post ophthalmic artey 2009 -clip- MRI COMPATIBLE ICD Description Code Date Cerebral hemorrhage 07/02/2016 Overview: - 2009 from anuerysm documented as of this encounter (statuses as of 07/18/2022) [facility] Narrative* Problem Noted Date Resolved Date Diabetes insipidus 07/24/2009 08/06/2015 DVT (deep venous thrombosis) 07/24/200904/2018 Overview: Has ivc filter in S/P cerebral aneurysm operation 07/24/2009 04/08/2018 Allergy, unspecified not elsewhere classified 11/22/2015 Pain in limb 03/30/2003 04/08/2018 Aneurysm 04/08/2018 Overview: - left post ophthalmic artey 2009 -clip- MRI COMPATIBLE ICD Description Code Date Cerebral hemorrhage 07/02/2016 Overview: - 2009 from anuerysm documented as of this encounter (statuses as of 07/21/2022) [facility] Narrative* Problem Noted Date Resolved Date Diabetes insipidus 07/24/2009 08/06/2015 DVT (deep venous thrombosis) 07/24/200904/2018 Overview: Has ivc filter in S/P cerebral aneurysm operation 07/24/2009 04/08/2018 Allergy, unspecified not elsewhere classified 11/22/2015 Pain in limb 03/30/2003 04/08/2018 Aneurysm 04/08/2018 Overview: - left post ophthalmic artey 2009 -clip- MRI COMPATIBLE ICD Description Code Date Cerebral hemorrhage 07/02/2016 Overview: - 2009 from anuerysm documented as of this encounter (statuses as of 07/21/2022) [facility] Narrative* Problem Noted Date Resolved Date Diabetes insipidus 07/24/2009 08/06/2015 DVT (deep venous thrombosis) 07/24/200904/2018 Overview: Has ivc filter in S/P cerebral aneurysm operation 07/24/2009 04/08/2018 Allergy, unspecified not elsewhere classified 11/22/2015 Pain in limb 03/30/2003 04/08/2018 Aneurysm 04/08/2018 Overview: - left post ophthalmic artey 2009 -clip- MRI COMPATIBLE ICD Description Code Date Cerebral hemorrhage 07/02/2016 Overview: - 2009 from anuerysm documented as of this encounter (statuses as of 07/24/2022) [facility] Narrative* Problem Noted Date Resolved Date Diabetes insipidus 07/24/2009 08/06/2015 DVT (deep venous thrombosis) 07/24/200904/2018 Overview: Has ivc filter in S/P cerebral aneurysm operation 07/24/2009 04/08/2018 Allergy, unspecified not elsewhere classified 11/22/2015 Pain in limb 03/30/2003 04/08/2018 Aneurysm 04/08/2018 Overview: - left post ophthalmic artey 2009 -clip- MRI COMPATIBLE ICD Description Code Date Cerebral hemorrhage 07/02/2016 Overview: - 2009 from anuerysm documented as of this encounter (statuses as of 07/25/2022) [facility] Narrative* Problem Noted Date Resolved Date Diabetes insipidus 07/24/2009 08/06/2015 DVT (deep venous thrombosis) 07/24/200904/2018 Overview: Has ivc filter in S/P cerebral aneurysm operation 07/24/2009 04/08/2018 Allergy, unspecified not elsewhere classified 11/22/2015 Pain in limb 03/30/2003 04/08/2018 Aneurysm 04/08/2018 Overview: - left post ophthalmic artey 2009 -clip- MRI COMPATIBLE ICD Description Code Date Cerebral hemorrhage 07/02/2016 Overview: - 2009 from anuerysm documented as of this encounter (statuses as of 07/30/2022) [facility] Narrative* Problem Noted Date Resolved Date Diabetes insipidus 07/24/2009 08/06/2015 DVT (deep venous thrombosis) 07/24/200904/2018 Overview: Has ivc filter in S/P cerebral aneurysm operation 07/24/2009 04/08/2018 Allergy, unspecified not elsewhere classified 11/22/2015 Pain in limb 03/30/2003 04/08/2018 Aneurysm 04/08/2018 Overview: - left post ophthalmic artey 2009 -clip- MRI COMPATIBLE ICD Description Code Date Cerebral hemorrhage 07/02/2016 Overview: - 2009 from anuerysm documented as of this encounter (statuses as of 08/04/2022) [facility] Narrative* Problem Noted Date Resolved Date Diabetes insipidus 07/24/2009 08/06/2015 DVT (deep venous thrombosis) 07/24/200904/2018 Overview: Has ivc filter in S/P cerebral aneurysm operation 07/24/2009 04/08/2018 Allergy, unspecified not elsewhere classified 11/22/2015 Pain in limb 03/30/2003 04/08/2018 Aneurysm 04/08/2018 Overview: - left post ophthalmic artey 2009 -clip- MRI COMPATIBLE ICD Description Code Date Cerebral hemorrhage 07/02/2016 Overview: - 2009 from anuerysm documented as of this encounter (statuses as of 08/05/2022) [facility] Narrative* Problem Noted Date Resolved Date Diabetes insipidus 07/24/2009 08/06/2015 DVT (deep venous thrombosis) 07/24/200904/2018 Overview: Has ivc filter in S/P cerebral aneurysm operation 07/24/2009 04/08/2018 Allergy, unspecified not elsewhere classified 11/22/2015 Pain in limb 03/30/2003 04/08/2018 Aneurysm 04/08/2018 Overview: - left post ophthalmic artey 2009 -clip- MRI COMPATIBLE ICD Description Code Date Cerebral hemorrhage 07/02/2016 Overview: - 2008 from anuerysm documented as of this encounter (statuses as of 08/20/2022) [facility] illness Narrative* Problem Noted Date Resolved Date Diabetes insipidus 07/24/2009 08/06/2015 DVT (deep venous thrombosis) 07/24/200904/2018 Overview: Has ivc filter in S/P cerebral aneurysm operation 07/24/2009 04/08/2018 Allergy, unspecified not elsewhere classified 11/22/2015 Pain in limb 03/30/2003 04/08/2018 Aneurysm 04/08/2018 Overview: - left post ophthalmic artey 2009 -clip- MRI COMPATIBLE ICD Description Code Date Cerebral hemorrhage 07/02/2016 Overview: - 2009 from anuerysm documented as of this encounter (statuses as of 08/21/2022) [facility]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 t Referred To Contact XR IMAGING Diagnoses Right foot pain Procedures XR FOOT GENERAL 3V AP/LAT/OBL RIGHT RADEX FOOT COMPLETE MINIMUM 3 VIEWS Sergio Patten Billy, DPM [address] [place] [address] [place] [address] Referral ID Status Reason Start Date Expiration Date Visits Requested Visits Authorized [id number] Pending Review Auto-Generat ed Referral 3 06/06/2024 1 1 Specialty Diagnoses / Procedures Referred By Contac t Referred To Contact [facility] Diagnoses Right foot pain Ganglion cyst of foot Procedures CONSULT TO PHYSICAL THERAPY PHYSICAL THERAPY EVALUATION HIGH COMPLEX 45 MINS Sergio Patten Billy, DPM [address] [place] [address] [facility] [address] [address] Referral ID Status Reason Start Date Expiration Date Visits Requested Visits Authorized [id number] Pending Review Auto-Generat ed Referral 3 06/16/2024 1 1 Chief Complaint and Reason for Visit Chief Complaint Admit Date [place] November 24, 2024 9:27a m Chief Complaint Admit Date DUPUYTREN CONTRACTURE/RX HERE December 07, 2024 1:19pm Additional Source Comments INFORMATION SOURCE (unrecogn ized section and content) DATE CREATED AUTHOR 02/11/2021 Daniel Israel [facility] DATE CREATED AUTHOR AUTHOR'S ORGANIZ ATION 02/04/2023 [facility] ([place]) DATE CREATED AUTHOR AUTHOR'S ORGANIZ ATION 03/22/2025 [facility] DATE CREATED AUTHOR AUTHOR'S ORGANIZ ATION 04/02/2025 [facility] DATE CREATED AUTHOR AUTHOR'S ORGANIZ ATION 05/10/2025 [facility] Source Comments (unrecognize d section and content) In the event this informatio n is protected by the Federal Confidentiality of Alcohol and Drug Abuse Patient Records regulations: The Federal rules restrict any use of the information to criminally investigate or prosecute any alcohol or drug abuse patient.[facility] Center[facility] the event this information is protected by the Federal Confidentiality of Alcohol and Drug Abuse Patient Records regulations: The Federal rules restrict any use of the information to criminally investigate or prosecute any alcohol or drug abuse patient.[facility] CenterIn the event this information is protected by the Federal Confidentiality of Alcohol and Drug Abuse Patient Records regulations: The Federal rules restrict any use of the information to criminally investigate or prosecute any alcohol or drug abuse patient.[facility] CenterIn the event this information is protected by the Federal Confidentiality of Alcohol and Drug Abuse Patient Records regulations: The Federal rules restrict any use of the information to criminally investigate or prosecute any alcohol or drug abuse patient.[facility] CenterIn the event this information is protected by the Federal Confidentiality of Alcohol and Drug Abuse Patient Records regulations: The Federal rules restrict any use of the information to criminally investigate or prosecute any alcohol or drug abuse patient.[facility] CenterIn the event this information is protected by the Federal Confidentiality of Alcohol and Drug Abuse Patient Records regulations: The Federal rules restrict any use of the information to criminally investigate or prosecute any alcohol or drug abuse patient.[facility] CenterIn the event this information is protected by the Federal Confidentiality of Alcohol and Drug Abuse Patient Records regulations: The Federal rules restrict any use of the information to criminally investigate or prosecute any alcohol or drug abuse patient.[facility] CenterIn the event this information is protected by the Federal Confidentiality of Alcohol and Drug Abuse Patient Records regulations: The Federal rules restrict any use of the information to criminally investigate or prosecute any alcohol or drug abuse patient.[facility] CenterIn the event this information is protected by the Federal Confidentiality of Alcohol and Drug Abuse Patient Records regulations: The Federal rules restrict any use of the information to criminally investigate or prosecute any alcohol or drug abuse patient.[facility] CenterIn the event this information is protected by the Federal Confidentiality of Alcohol and Drug Abuse Patient Records regulations: The Federal rules restrict any use of the information to criminally investigate or prosecute any alcohol or drug abuse patient.[facility] CenterIn the event this information is protected by the Federal Confidentiality of Alcohol and Drug Abuse Patient Records regulations: The Federal rules restrict any use of the information to criminally investigate or prosecute any alcohol or drug abuse patient.[facility] CenterIn the event this information is protected by the Federal Confidentiality of Alcohol and Drug Abuse Patient Records regulations: The Federal rules restrict any use of the information to criminally investigate or prosecute any alcohol or drug abuse patient.[facility] CenterIn the event this information is protected by the Federal Confidentiality of Alcohol and Drug Abuse Patient Records regulations: The Federal rules restrict any use of the information to criminally investigate or prosecute any alcohol or drug abuse patient.[facility] CenterIn the event this information is protected by the Federal Confidentiality of Alcohol and Drug Abuse Patient Records regulations: The Federal rules restrict any use of the information to criminally investigate or prosecute any alcohol or drug abuse patient.[facility] CenterIn the event this information is protected by the Federal Confidentiality of Alcohol and Drug Abuse Patient Records regulations: The Federal rules restrict any use of the information to criminally investigate or prosecute any alcohol or drug abuse patient.[facility] CenterIn the event this information is protected by the Federal Confidentiality of Alcohol and Drug Abuse Patient Records regulations: The Federal rules restrict any use of the information to criminally investigate or prosecute any alcohol or drug abuse patient.[facility] CenterIn the event this information is protected by the Federal Confidentiality of Alcohol and Drug Abuse Patient Records regulations: The Federal rules restrict any use of the information to criminally investigate or prosecute any alcohol or drug abuse patient.[facility] CenterIn the event this information is protected by the Federal Confidentiality of Alcohol and Drug Abuse Patient Records regulations: The Federal rules restrict any use of the information to criminally investigate or prosecute any alcohol or drug abuse patient.[facility] CenterIn the event this information is protected by the Federal Confidentiality of Alcohol and Drug Abuse Patient Records regulations: The Federal rules restrict any use of the information to criminally investigate or prosecute any alcohol or drug abuse patient.[facility] CenterIn the event this information is protected by the Federal Confidentiality of Alcohol and Drug Abuse Patient Records regulations: The Federal rules restrict any use of the information to criminally investigate or prosecute any alcohol or drug abuse patient.[facility] CenterIn the event this information is protected by the Federal Confidentiality of Alcohol and Drug Abuse Patient Records regulations: The Federal rules restrict any use of the information to criminally investigate or prosecute any alcohol or drug abuse patient.[facility] CenterIn the event this information is protected by the Federal Confidentiality of Alcohol and Drug Abuse Patient Records regulations: The Federal rules restrict any use of the information to criminally investigate or prosecute any alcohol or drug abuse patient.[facility] CenterIn the event this information is protected by the Federal Confidentiality of Alcohol and Drug Abuse Patient Records regulations: The Federal rules restrict any use of the information to criminally investigate or prosecute any alcohol or drug abuse patient.[facility] CenterIn the event this information is protected by the Federal Confidentiality of Alcohol and Drug Abuse Patient Records regulations: The Federal rules restrict any use of the information to criminally investigate or prosecute any alcohol or drug abuse patient.[facility] CenterIn the event this information is protected by the Federal Confidentiality of Alcohol and Drug Abuse Patient Records regulations: The Federal rules restrict any use of the information to criminally investigate or prosecute any alcohol or drug abuse patient.[facility] CenterIn the event this information is protected by the Federal Confidentiality of Alcohol and Drug Abuse Patient Records regulations: The Federal rules restrict any use of the information to criminally investigate or prosecute any alcohol or drug abuse patient.[facility] CenterIn the event this information is protected by the Federal Confidentiality of Alcohol and Drug Abuse Patient Records regulations: The Federal rules restrict any use of the information to criminally investigate or prosecute any alcohol or drug abuse patient.[facility] CenterIn the event this information is protected by the Federal Confidentiality of Alcohol and Drug Abuse Patient Records regulations: The Federal rules restrict any use of the information to criminally investigate or prosecute any alcohol or drug abuse patient.[facility] CenterIn the event this information is protected by the Federal Confidentiality of Alcohol and Drug Abuse Patient Records regulations: The Federal rules restrict any use of the information to criminally investigate or prosecute any alcohol or drug abuse patient.[facility] CenterIn the event this information is protected by the Federal Confidentiality of Alcohol and Drug Abuse Patient Records regulations: The Federal rules restrict any use of the information to criminally investigate or prosecute any alcohol or drug abuse patient.[facility] CenterIn the event this information is protected by the Federal Confidentiality of Alcohol and Drug Abuse Patient Records regulations: The Federal rules restrict any use of the information to criminally investigate or prosecute any alcohol or drug abuse patient.[facility] CenterIn the event this information is protected by the Federal Confidentiality of Alcohol and Drug Abuse Patient Records regulations: The Federal rules restrict any use of the information to criminally investigate or prosecute any alcohol or drug abuse patient.[facility] CenterIn the event this information is protected by the Federal Confidentiality of Alcohol and Drug Abuse Patient Records regulations: The Federal rules restrict any use of the information to criminally investigate or prosecute any alcohol or drug abuse patient.[facility] CenterIn the event this information is protected by the Federal Confidentiality of Alcohol and Drug Abuse Patient Records regulations: The Federal rules restrict any use of the information to criminally investigate or prosecute any alcohol or drug abuse patient.[facility] CenterIn the event this information is protected by the Federal Confidentiality of Alcohol and Drug Abuse Patient Records regulations: The Federal rules restrict any use of the information to criminally investigate or prosecute any alcohol or drug abuse patient.[facility] CenterIn the event this information is protected by the Federal Confidentiality of Alcohol and Drug Abuse Patient Records regulations: The Federal rules restrict any use of the information to criminally investigate or prosecute any alcohol or drug abuse patient.[facility] CenterIn the event this information is protected by the Federal Confidentiality of Alcohol and Drug Abuse Patient Records regulations: The Federal rules restrict any use of the information to criminally investigate or prosecute any alcohol or drug abuse patient.[facility] CenterIn the event this information is protected by the Federal Confidentiality of Alcohol and Drug Abuse Patient Records regulations: The Federal rules restrict any use of the information to criminally investigate or prosecute any alcohol or drug abuse patient.[facility] CenterIn the event this information is protected by the Federal Confidentiality of Alcohol and Drug Abuse Patient Records regulations: The Federal rules restrict any use of the information to criminally investigate or prosecute any alcohol or drug abuse patient.[facility] CenterIn the event this information is protected by the Federal Confidentiality of Alcohol and Drug Abuse Patient Records regulations: The Federal rules restrict any use of the information to criminally investigate or prosecute any alcohol or drug abuse patient.[facility] CenterIn the event this information is protected by the Federal Confidentiality of Alcohol and Drug Abuse Patient Records regulations: The Federal rules restrict any use of the information to criminally investigate or prosecute any alcohol or drug abuse patient.[facility] CenterIn the event this information is protected by the Federal Confidentiality of Alcohol and Drug Abuse Patient Records regulations: The Federal rules restrict any use of the information to criminally investigate or prosecute any alcohol or drug abuse patient.[facility] CenterIn the event this information is protected by the Federal Confidentiality of Alcohol and Drug Abuse Patient Records regulations: The Federal rules restrict any use of the information to criminally investigate or prosecute any alcohol or drug abuse patient.[facility] CenterIn the event this information is protected by the Federal Confidentiality of Alcohol and Drug Abuse Patient Records regulations: The Federal rules restrict any use of the information to criminally investigate or prosecute any alcohol or drug abuse patient.[facility] CenterIn the event this information is protected by the Federal Confidentiality of Alcohol and Drug Abuse Patient Records regulations: The Federal rules restrict any use of the information to criminally investigate or prosecute any alcohol or drug abuse patient.[facility] CenterIn the event this information is protected by the Federal Confidentiality of Alcohol and Drug Abuse Patient Records regulations: The Federal rules restrict any use of the information to criminally investigate or prosecute any alcohol or drug abuse patient.[facility] CenterIn the event this information is protected by the Federal Confidentiality of Alcohol and Drug Abuse Patient Records regulations: The Federal rules restrict any use of the information to criminally investigate or prosecute any alcohol or drug abuse patient.[facility] CenterIn the event this information is protected by the Federal Confidentiality of Alcohol and Drug Abuse Patient Records regulations: The Federal rules restrict any use of the information to criminally investigate or prosecute any alcohol or drug abuse patient.[facility] CenterIn the event this information is protected by the Federal Confidentiality of Alcohol and Drug Abuse Patient Records regulations: The Federal rules restrict any use of the information to criminally investigate or prosecute any alcohol or drug abuse patient.[facility] CenterIn the event this information is protected by the Federal Confidentiality of Alcohol and Drug Abuse Patient Records regulations: The Federal rules restrict any use of the information to criminally investigate or prosecute any alcohol or drug abuse patient.[facility] CenterIn the event this information is protected by the Federal Confidentiality of Alcohol and Drug Abuse Patient Records regulations: The Federal rules restrict any use of the information to criminally investigate or prosecute any alcohol or drug abuse patient.[facility] CenterIn the event this information is protected by the Federal Confidentiality of Alcohol and Drug Abuse Patient Records regulations: The Federal rules restrict any use of the information to criminally investigate or prosecute any alcohol or drug abuse patient.[facility] CenterIn the event this information is protected by the Federal Confidentiality of Alcohol and Drug Abuse Patient Records regulations: The Federal rules restrict any use of the information to criminally investigate or prosecute any alcohol or drug abuse patient.[facility] CenterIn the event this information is protected by the Federal Confidentiality of Alcohol and Drug Abuse Patient Records regulations: The Federal rules restrict any use of the information to criminally investigate or prosecute any alcohol or drug abuse patient.[facility] CenterIn the event this information is protected by the Federal Confidentiality of Alcohol and Drug Abuse Patient Records regulations: The Federal rules restrict any use of the information to criminally investigate or prosecute any alcohol or drug abuse patient.[facility] CenterIn the event this information is protected by the Federal Confidentiality of Alcohol and Drug Abuse Patient Records regulations: The Federal rules restrict any use of the information to criminally investigate or prosecute any alcohol or drug abuse patient.[facility] CenterIn the event this information is protected by the Federal Confidentiality of Alcohol and Drug Abuse Patient Records regulations: The Federal rules restrict any use of the information to criminally investigate or prosecute any alcohol or drug abuse patient.[facility] CenterIn the event this information is protected by the Federal Confidentiality of Alcohol and Drug Abuse Patient Records regulations: The Federal rules restrict any use of the information to criminally investigate or prosecute any alcohol or drug abuse patient.[facility] CenterIn the event this information is protected by the Federal Confidentiality of Alcohol and Drug Abuse Patient Records regulations: The Federal rules restrict any use of the information to criminally investigate or prosecute any alcohol or drug abuse patient.[facility] CenterIn the event this information is protected by the Federal Confidentiality of Alcohol and Drug Abuse Patient Records regulations: The Federal rules restrict any use of the information to criminally investigate or prosecute any alcohol or drug abuse patient.[facility] CenterIn the event this information is protected by the Federal Confidentiality of Alcohol and Drug Abuse Patient Records regulations: The Federal rules restrict any use of the information to criminally investigate or prosecute any alcohol or drug abuse patient.[facility] CenterIn the event this information is protected by the Federal Confidentiality of Alcohol and Drug Abuse Patient Records regulations: The Federal rules restrict any use of the information to criminally investigate or prosecute any alcohol or drug abuse patient.[facility] CenterIn the event this information is protected by the Federal Confidentiality of Alcohol and Drug Abuse Patient Records regulations: The Federal rules restrict any use of the information to criminally investigate or prosecute any alcohol or drug abuse patient.[facility] CenterIn the event this information is protected by the Federal Confidentiality of Alcohol and Drug Abuse Patient Records regulations: The Federal rules restrict any use of the information to criminally investigate or prosecute any alcohol or drug abuse patient.[facility] CenterIn the event this information is protected by the Federal Confidentiality of Alcohol and Drug Abuse Patient Records regulations: The Federal rules restrict any use of the information to criminally investigate or prosecute any alcohol or drug abuse patient.[facility] CenterIn the event this information is protected by the Federal Confidentiality of Alcohol and Drug Abuse Patient Records regulations: The Federal rules restrict any use of the information to criminally investigate or prosecute any alcohol or drug abuse patient.[facility] CenterIn the event this information is protected by the Federal Confidentiality of Alcohol and Drug Abuse Patient Records regulations: The Federal rules restrict any use of the information to criminally investigate or prosecute any alcohol or drug abuse patient.[facility] CenterIn the event this information is protected by the Federal Confidentiality of Alcohol and Drug Abuse Patient Records regulations: The Federal rules restrict any use of the information to criminally investigate or prosecute any alcohol or drug abuse patient.[facility] CenterIn the event this information is protected by the Federal Confidentiality of Alcohol and Drug Abuse Patient Records regulations: The Federal rules restrict any use of the information to criminally investigate or prosecute any alcohol or drug abuse patient.[facility] CenterIn the event this information is protected by the Federal Confidentiality of Alcohol and Drug Abuse Patient Records regulations: The Federal rules restrict any use of the information to criminally investigate or prosecute any alcohol or drug abuse patient.[facility] CenterIn the event this information is protected by the Federal Confidentiality of Alcohol and Drug Abuse Patient Records regulations: The Federal rules restrict any use of the information to criminally investigate or prosecute any alcohol or drug abuse patient.[facility] CenterIn the event this information is protected by the Federal Confidentiality of Alcohol and Drug Abuse Patient Records regulations: The Federal rules restrict any use of the information to criminally investigate or prosecute any alcohol or drug abuse patient.[facility] CenterIn the event this information is protected by the Federal Confidentiality of Alcohol and Drug Abuse Patient Records regulations: The Federal rules restrict any use of the information to criminally investigate or prosecute any alcohol or drug abuse patient.[facility] CenterIn the event this information is protected by the Federal Confidentiality of Alcohol and Drug Abuse Patient Records regulations: The Federal rules restrict any use of the information to criminally investigate or prosecute any alcohol or drug abuse patient.[facility] CenterIn the event this information is protected by the Federal Confidentiality of Alcohol and Drug Abuse Patient Records regulations: The Federal rules restrict any use of the information to criminally investigate or prosecute any alcohol or drug abuse patient.[facility] CenterIn the event this information is protected by the Federal Confidentiality of Alcohol and Drug Abuse Patient Records regulations: The Federal rules restrict any use of the information to criminally investigate or prosecute any alcohol or drug abuse patient.[facility] CenterIn the event this information is protected by the Federal Confidentiality of Alcohol and Drug Abuse Patient Records regulations: The Federal rules restrict any use of the information to criminally investigate or prosecute any alcohol or drug abuse patient.[facility] CenterIn the event this information is protected by the Federal Confidentiality of Alcohol and Drug Abuse Patient Records regulations: The Federal rules restrict any use of the information to criminally investigate or prosecute any alcohol or drug abuse patient.[facility] CenterIn the event this information is protected by the Federal Confidentiality of Alcohol and Drug Abuse Patient Records regulations: The Federal rules restrict any use of the information to criminally investigate or prosecute any alcohol or drug abuse patient.[facility] CenterIn the event this information is protected by the Federal Confidentiality of Alcohol and Drug Abuse Patient Records regulations: The Federal rules restrict any use of the information to criminally investigate or prosecute any alcohol or drug abuse patient.[facility] CenterIn the event this information is protected by the Federal Confidentiality of Alcohol and Drug Abuse Patient Records regulations: The Federal rules restrict any use of the information to criminally investigate or prosecute any alcohol or drug abuse patient.[facility] CenterIn the event this information is protected by the Federal Confidentiality of Alcohol and Drug Abuse Patient Records regulations: The Federal rules restrict any use of the information to criminally investigate or prosecute any alcohol or drug abuse patient.[facility] CenterIn the event this information is protected by the Federal Confidentiality of Alcohol and Drug Abuse Patient Records regulations: The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 05/28/20 Thierry Kirby Jr., MD [address] [place] [phone] Neurology 08/06/[address] MD [address] [place] [address] [place] [address] Gastroenterology 03/17/17 [facility] [address] [place] [address] [place] [address] Internal Medicine 06/09/24 Printing Assistant Relationship Specialty Start Date End Date Juan Jose Stafford MD [address] [place] [address] [place], [place] [id number] PCP - General Internal Medicine 05/28/20 Thierry Kirby Jr., MD [address] [place] [phone] Neurology 08/06/[address] MD [address] [place] [address] [place], [place] [phone] Gastroenterology 03/17/17 [facility] [address] [place] [address] [place], [place] [phone] Internal Medicine 06/09/24 Printing Assistant Relationship Specialty Start Date End Date Juan Jose Stafford MD [address] [place] [address] [place], [place] [id number] PCP - General Internal Medicine 05/28/20 Thierry Kirby Jr., MD [address] [place] [phone] Neurology 08/06/[address] MD [address] [place] [address] [place], [place] [phone] Gastroenterology 03/17/17 [facility] [address] [place] [address] [place], [place] [phone] Internal Medicine 06/09/24 Team Status: Active Member Role/Relationship Status Dates Dr. Juan Jose Stafford MD Primary care physician Activ e Team Status: Inactive Member Role/Relationship Status Dates Dr. Juan Jose Stafford MD Primary care physician Activ e Start: December 07, 2024 End: December 07, 2024 Dr. Padilla Garcia MD Attending physician Active Start: December 07, 2024 End: December 07, 2024 Dr. Padilla Garcia MD Referring Provider Active Start: December 07, 2024 End: December 07, 2024 Goals (unrecognized section and content) Goals may be documented in a n alternate sectionGoals may be documented in an alternate section FOR RECORDS PERTAINING TO PATIENTS WHO ARE OR HAVE BEEN ENROLLED IN A CHEMICAL DEPENDENCY/SUBSTANCEABUSE PROGRAM, SOME INFORMATION MAY BE OMITTED. This clinical summary was aggregated from multiple sources. Caution should be exercised in using it in the provision of clinical care. This summary normalizes information from multiple sources, and as a consequence, information in this document may materially change the coding, format and clinical context of patient data. In addition, data may be omitted in some cases. CLINICAL DECISIONS SHOULD BE BASED ON THE PRIMARY CLINICAL RECORDS. [facility] [employer] [facility]. provides no warranty or guarantee of the accuracy or completeness of information in this document.
[2025-06-14 20:53] VITALS: BP 157/82; PULSE 76; RESP 19; O2SAT 98
[2025-06-14] MEDS: Pantoprazole Sodium 40 MG in 0.9% Normal Saline (100mL MB+) 100 ML 300 MG IV (21:04)
[2025-06-14 21:10] LABS: Troponin T High Sensitivity 10 ng/L (<=14)
[2025-06-14 22:09] VITALS: BP 134/64; PULSE 68; RESP 18; O2SAT 98
[2025-06-14 22:13] LABS: Hematocrit 36.3 % (37-47); Hemoglobin 12.0 g/dL (12.0-15.0); Immature Granulocytes Count 0.040 X10^3/uL (0.0-0.0); Mean Corp Hgb Conc 33.1 g/dL (32-36); Mean Corpuscular Volume 89.4 fL (81-99); Mean Platelet Vol. 10.9 fl (6.2-12.0); NRBC Flagged by Analyzer 0 % (0-5); Platelet Count 224 K/mm3 (150-450); RBC Distribution Width CV 13.1 % (11.6-14.6); RBC Distribution Width SD 42.7 fl (35.1-43.9); Red Blood Count 4.06 M/mm3 (4.2-5.4); White Blood Count 9.5 K/mm3 (4.4-11.0)
[2025-06-14 23:03] VITALS: BP 141/69; PULSE 75; RESP 14; TEMP 36.4; O2SAT 98
--- NOTE | 2025-06-14 23:04 | PCM.HP.STD ---
HPI - General General Date of Admission: 06/14/25 HPI Narrative FADUMO CANTOR, is a 65 F who presents with hematemesis. She has been having intermittent abdominal pain recently and then today was starting her colon prep for colonoscopy tomorrow when she developed severe abdominal pain and nausea. She had an episode of emesis which was bright red blood and then she had a couple more prior to arrival to the emergency room. In the ER she is not anemic with a hemoglobin initially of 13.4, was rechecked several hours later and was down to 12. She did have a bloody emesis here in the emergency room. 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 She was given a dose of Rocephin as GI prophylaxis however she does not have cirrhosis or any kind of liver disease therefore we will discontinue on admission. [facility] Medical History Blood clot in leg Back problem Arthritis Allergies Hypercholesterolemia Hypertension FH: cholecystectomy Brain aneurysm Home Medications ?Medication ?Instructions ?Recorded ?Last Taken ?Type warfarin 7.5 mg tablet 7.5 mg PO QDAY 11/24/24 06/11/25 History Allergy/AdvReac Type Severity Reaction Status Date / Time shellfish derived Allergy Mild Vomiting Verified 06/14/25 18:50 mushroom Allergy Anaphylaxis Verified 06/14/25 18:50 Family History Other Blood clot in leg Breast cancer CVA (cerebral vascular accident) Cancer Kidney disease Surgical History Hx of cholecystectomy H/O brain surgery H/O: hysterectomy Social History household members: none housing: house pets and animals: Yes Smoking Status: Former smoker how long ago did patient quit smoking: quit 1979 alcohol intake: current details: socially substance use type: does not use additional social history: pt uses aspirin and ibuprofen pt denies vaping, denies edibles, denies marijuana, pt report history of blood clots ROS Constitutional Constitutional: Denies chills, fatigue, fever(s) or malaise Eyes Eyes: Denies blurry vision ENT HEENT: Denies headache(s) or nasal discharge Cardiovascular Cardiovascular: Denies chest pain, dyspnea on exertion or syncope Respiratory/Chest Respiratory/Chest: Denies cough, shortness of breath at rest or shortness of breath with exertion Gastrointestinal Gastrointestinal: Reports abdominal pain, coffee ground emesis, nausea and vomiting; Denies constipation or diarrhea Genitourinary Genitourinary: Denies dysuria Neurologic Neurologic: Denies focal weakness, numbness or tremor(s) Psychiatric Psychiatric: Denies anxiety or depression Patient's Goals Of Care . Unable to discuss care goals with the patient and or patient marketing development representative at this time: Yes Vital Signs Vital Signs Vital Signs: 06/14/25 18:47 06/14/25 20:53 06/14/25 22:09 Temperature 97 F L Temperature Source Temporal Pulse Rate 100 76 68 Respiratory Rate 20 H 19 H 18 Blood Pressure 165/120 H 157/82 H 134/64 H Blood Pressure Mean 135 107 87 Pulse Ox 100 98 98 Oxygen Delivery Method Room Air Room Air Room Air 06/14/25 23:03 Temperature 97.6 F L Temperature Source Pulse Rate 75 Respiratory Rate 14 Blood Pressure 141/69 H Blood Pressure Mean 93 Pulse Ox 98 Oxygen Delivery Method Weight Weight: 173 lb 9.6 oz Body Mass Index (BMI) 30.7 Physical Exam Narrative General: Alert, Oriented x3, Cooperative, No apparent distress HEENT: Atraumatic, PERRLA, EOMI, Normocephalic Oral: Moist Mucosa Neck: Supple, No JVD Lungs: Diminished, Normal air movement, No rhonchi, No wheeze, No rales Cardiovascular: Regular rate, Regular Rhythm, Normal S1, Normal S2, No murmurs Abdomen: Soft, Non Tender, Non-Distended, No Hepato-splenomegaly Extremities: No edema, Capillary Refill Less than 3 Seconds Skin: No rashes, No breakdown Musculoskeletal: No Tenderness to Palpation of Joints or Extremities Neurological: No focal neurological deficits, moves all extremities Psych/Mental Status: Normal Affect, Appropriate Results Lab / Micro Data 06/14/25 22:06 06/14/25 19:50 Labs: Laboratory Results - last 24 hr 06/14/25 19:50: WBC 6.6, RBC 4.58, Hgb 13.4, Hct 41.0, MCV 89.5, MCH 29.3, MCHC 32.7, RDW Std Deviation 42.8, RDW Coeff of Yinka 13.1, Plt Count 249, MPV 10.8, Immature Gran % (Auto) 0.500, Neut % (Auto) 53.7, Lymph % (Auto) 27.6, Mathews % (Auto) 13.1 H, Eos % (Auto) 3.7, Baso % (Auto) 1.4 H, Absolute Neuts (auto) 3.5, Absolute Lymphs (auto) 1.81, Nucleated RBC % 0, PT 13.8, INR 1.0, APTT 24.8, Sodium 144, Potassium 3.6, Chloride 108, Carbon Dioxide 23.0, Anion Gap 13, BUN 12, Creatinine 0.94, Estim Creat Clear Calc 59.28, Est GFR (MDRD) Non-Af 67, BUN/Creatinine Ratio 12.7, Glucose 85, Calcium 8.9, Total Bilirubin 0.74, AST 28, ALT 26, Alkaline Phosphatase 73, Troponin T High Sens 10, Total Protein 6.9, Albumin 4.3, Globulin 2.6, Albumin/Globulin Ratio 1.6 06/14/25 19:52: Blood Type A NEGATIVE, Antibody Screen NEGATIVE, Crossmatch See Detail 06/14/25 22:06: WBC 9.5, RBC 4.06 L, Hgb 12.0, Hct 36.3 L, MCV 89.4, MCH 29.6, MCHC 33.1, RDW Std Deviation 42.7, RDW Coeff of Yinka 13.1, Plt Count 224, MPV 10.9, Immature Gran % (Auto) 0.400, Neut % (Auto) 57.5, Lymph % (Auto) 26.8, Mathews % (Auto) 12.2 H, Eos % (Auto) 2.0, Baso % (Auto) 1.1 H, Absolute Neuts (auto) 5.4, Absolute Lymphs (auto) 2.53, Nucleated RBC % 0 Assessment & Plan Assessment/Plan (1) Hematemesis: (2) Acute upper GI bleed: PLAN: Plan 1. Upper GI bleed without anemia ? She is having coffee-ground emesis, continue with IV Protonix ? N.p.o. ? Hemoglobin went from 13.4 down to 12 ? Recheck hemoglobin in the morning ? Will consult gastroenterology for possible EGD if her hemoglobin continues to drop given the potential for reinitiation of Coumadin DVT: SCDs Charges/Coding Visit Charges Inpatient E&M: 94683 Init Hosp L2
--- OUTSIDE RECORDS SUMMARY | 2025-06-14 23:26 | XMS RPT_ITS | CCD ---
Author Organization [facility] Care Team Providers Care Hog Slaughterer Name Role Phone Mirta Lynch MD, Thierry Freire Unavailable Hakeem Lane MD Unavailable Rivera STARR, Juan Jose Primary Care Provider PHYSICIAN, NONE Attending Unavailable PHYSICIAN, NONE Primary Care Unavailable Mirta Lynch MD, Thierry Freire Unavailable [phone] MD Unavailable Rivera STARR, Juan Jose Primary Care Provider Juan Jose Stafford MD Primary Care Provider [facility] Unavailable [phone] Juan Jose Stafford MD Primary Care [...] BETHANY LOWERY Attending Unavailable SELF Referring Unavailable [facility] Primary Care Unavailable Allergies Allergy Classification Reported Allergen(s) Allergy Type Date of Onset Reaction(s) Facility (20 sources) cultivated mushroom extract; Translations: [MUSHROOM] Drug Allergy Other: See Comments [facility] (3 sources) Shellfish; Translations: [shellfish derived] Allergy to substance 5 Vomiting [facility] (1 source) Mushroom (edible) Drug allergy (disorder) 5 [facility] Repository Medications Current Medications Medication Drug [...] for pain. Take 3 tablets by mo [facility] every 6 hours as needed for pain. [...] daily Start: 10-19-2018 take 1 capsule by [facility] once daily Cholecalciferol, Vitamin D3, (VITAMIN D-3) 2,000 unit cap Take 1 capsule by mouth once daily. 10/19/2018 Active Comment on above: Take 1 capsule by [facility] once daily. docusate sodium 50 mg / sennosides, alf 8.6 mg oral tablet (5 sources) Start: End: take 1 tablet by mouth twice daily senna-docusate (SENNA-S) 8.6-50 mg per tablet Take 1 tablet by mouth twice daily for 7 days. 14 tablet 0 02/05/2023 02/12/2023 Active Comment on above: Take 1 tablet by [facility] twice daily for 7 days. [id number] 0.3 ml EPINEPHrine 1 mg/ml auto-injector (20 [...] Comment on above: Take 1 tablet by [facility] every 6 hours as needed for pain for up to 4 days. Take 1 tablet by tyrone every 6 hours as needed for pain. Take 1 tablet by tyrone th every 6 hours as needed for pain for up to 14 days. polyethylene glycol 3350 61662 mg powder for oral solution (20 sources) Osmotic Laxative Start: 020 End: polyethylene glycol 3350 (MIRALAX) 17 gram/dose powder Take 17 g by mouth once daily. 1 Bottle 2 06/08/2020 08/21/2022 Discontinued Comment on above: Take 17 g by mouth o nce daily. polyethylene glycol 3350 100807 mg / potassium chloride 2970 mg / sodium bicarbonate 6740 mg / sodium chloride 5860 mg / sodium sulfate 82355 mg powder for oral solution (3 sources) [...] on above: Take 1 capsule by mo [facility] daily at bedtime. TAKE 1 CAPSULE BY [facility] EVERYDAY AT BEDTIME traMADol hydrochloride 50 mg [...] Indications: Factor V Leiden mutation (HCC) , risk compliance 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 use 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 Take 3.75mg on Thursday and 7.5mg on all other days of the week 30 tablet 5 04/30/2023 Active Start: 02-19-2023 End: 04-01-2023 warfarin (COUMADIN) 7.5 mg t ablet Indications: Factor V Leiden mutation (HCC) , risk compliance 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 use 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 Take 3.75mg on Thursday, Thursday, and Thursday and 7.5mg on all other days of the week 30 tablet 5 04/01/2023 Active Start: 09-09-2022 End: 09-16-2022 warfarin (COUMADIN) 7.5 mg t ablet Indications: Factor V Leiden mutation (HCC) , risk compliance 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 use 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 Take 11.25mg on Thursday and 7.5mg on all other days. 30 tablet 5 09/09/2022 09/16/2022 Discontinued (Adjust Sig - Block E-Cancel) Start: 08-04-2022 End: 08-26-2022 warfarin (COUMADIN) 7.5 mg t ablet Indications: Factor V Leiden mutation (HCC) , senior living current use 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 Take 3.75mg on Thursday and Thursday and 7.5mg on all other days of the week 30 tablet 5 08/21/2022 08/26/2022 Discontinued (Adjust Sig - Block E-Cancel) Start: 07-25-2022 warfarin (COUM ESSENCE) 7.5 mg tablet Indications: Factor V Leiden mutation (HCC) , senior living current use 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 Take 11.25mg on Thursday and Thursday and 7.5mg on all other days of the week or as directed 0 07/25/2022 Active Start: 02-27-2022 End: 07-25-2022 warfarin (COUMADIN) 7.5 mg t ablet Indications: Factor V Leiden mutation (HCC) , senior living current use 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 Take 11.25mg on [...] sources) Long-term current use 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; Translations: [senior living (current) use 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s] Onset: 02-14-2016 10-21-2016 [...] Value Interpretation Reference Range [facility] SAKSHIFADUMO ([id number]) 1960 F Date Time Provider Department 05/09/25 KALEIGH STOCK During your visit today, we recorded the following information about you: LesiaKaleigh barrios, [facility] 05/09/2025 1:17 PM Signed [facility] COUMADIN CLINIC - PHONE [...] preference/comfort (date: 02/07/2021) Home INR monitor: Active, Guadalupe/Offerpopel. Tests every 2-4 weeks Consult agreement has [...] back instructions and verbalized understanding. Kaleigh Stock [facility] Juan Jose Stafford MD 05/09/2025 1:51 PM Signed Reviewed and agree with plan. Allergies As of Date: 05/09/2025 Noted Allergy Reaction MUSHROOM 07/02/2015 14 - Other: See Comments Comments: Get heartburn Other reaction(s): AOF Date Reviewed: 03/09/2025 Reviewed by: Najma Nicholas MA - Fully Assessed Reason for Visit: Coumadin/INR [1207] Primary Visit Diagnosis:Factor V Leiden mutation (HCC) [D68.51] Other Visit Diagnoses:H/O thromboembolism [Z86.718] 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]- not adherent to regular inr checks [Z79.01] Order(s):PROTHROMBIN TIME [SQPT] Order #: [id number] warfarin (JANTOVEN) 7.5 mg .25mg on Thursday and 7.5mg on all other [...] disorder with radiculopathy* 6 H/O thromboembolism [Z86.718] 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]*02/14/2016 Aneurysm (HCC) [I72.9] 04/08/2018 Cerebral hemorrhage (HCC) [I61.9] 07/02/2016 Vitamin D deficiency [E55.9] Presence of IVC filter [Z95.828] 07/02/2016 Status post hysterectomy- 1994 ovaries spared *07/02/2016 Post-phlebitic syndrome [I87.009] 07/18/2016 History of DVT of lower extremity [Z86.718] 03/17/2017 02/20/2025 Hyperlipidemia [E78.5] Osteopenia [M85.80] Factor V Leiden mutation (HCC) [D68.51] C (more content not included)... Normal [facility] Shanthi 04-25-2025 DELON Telephone (AGINTMAC) RAMSIERALMA ROSAFADUMO ([id number]) 1960 F Date Time Provider Department 04/25/25 KALEIGH STOCK During your visit today, we recorded the following information about you: Kaleigh Stock [facility] 04/25/2025 11:42 AM Addendum [facility] [...] back instructions and verbalized understanding. Kaleigh Stock [facility] Juan Jose Stafford MD 04/25/2025 1:22 PM Signed Reviewed and agree with plan. Allergies As of Date: 04/25/2025 Noted Allergy Reaction MUSHROOM 07/02/2015 14 - Other: See Comments Comments: Get heartburn Other reaction(s): AOF Date Reviewed: 03/09/2025 Reviewed by: Najma Nicholas MA - Fully Assessed Reason for Visit: Coumadin/INR [1207] Primary Visit Diagnosis:Factor V Leiden mutation ([facility]) [D68.51] Other Visit Diagnosis:H/O thromboembolism [Z86.718] Order(s):PROTHROMBIN TIME [SQPT] Order #: [id number] Prescriptions as of 04/25/2025 - warfarin (JANTOVEN) [...] Venous insufficiency (chronic) (peripheral) [I8*04/08/2004 Diabetes insipidus ([facility]) [E23.2] 07/24/2009 08/06/2015 Gait Abnormality [R26.9] 07/24/2009 DVT (deep venous thrombosis) ([facility]) [I82.409] 07/24/2009 04/08/2018 S/P cerebral aneurysm operation [Z98.890, Z86.7*07/24/2009 04/08/2018 Cerebral aneurysm- left posterior ophthlamic ar*07/24/2009 Migraine [G43.909] 08/06/2015 Heterozygous factor V Leiden mutation (HCC) [D6*08/06/2015 02/20/2025 History of uterine cancer- 1994 [Z85.42] 08/06/2015 Gastroesophageal reflux disease [K21.9] Intervertebral disc disorder [M51.9] Intervertebral disc disorder with radiculopathy* 6 H/O thromboembolism [Z86.718] 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]*02/14/2016 Aneurysm (HCC) [...] on exertion) (more content not included)... Normal [facility] Shanthi 03-31-2025 MARY KAYN Telephone (AGINTMAC) FADUMO CANTOR ([id number]) 1960 F Date Time Provider Department 03/31/25 KALEIGH STOCK During your visit today, we recorded the following information about you: Kaleigh Stock RPh 03/31/2025 8:44 AM Signed [facility] COUMADIN CLINIC - PHONE [...] preference/comfort (date: 02/07/2021) Home INR monitor: Active, [place]. Tests every 2-4 weeks Consult agreement has [...] thromboembolism [Z86.718] Order(s):PROTHROMBIN TIME [SQPT] Order #: [id number] Prescriptions as of 03/31/2025 - warfarin (JANTOVEN) [...] Abnormality [R26.9] 07/24/2009 DVT (deep venous thrombosis) ([facility]) [I82.409] 07/24/2009 04/08/2018 S/P cerebral aneurysm operation [Z98.890, Z86.7*07/24/2009 04/08/2018 Cerebral aneurysm- left posterior ophthlamic ar*07/24/2009 Migraine [G43.909] 08/06/2015 Heterozygous factor V Leiden mutation (HCC) [D6*08/06/2015 02/20/2025 History of uterine cancer- 1994 [Z85.42] 08/06/2015 Gastroesophageal reflux disease [K21.9] Intervertebral disc disorder [M51.9] Intervertebral disc disorder with radiculopathy* 6 H/O thromboembolism [Z86.718] 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]*02/14/2016 Aneurysm (HCC) [...] Encounter Status:Closed by KALEIGH STOCK on 03/31/25 [facility] Shanthi 03-30-2025 MARY KAYN Telephone (AGINTMAC) FADUMO CANTOR ([id number]) 1960 F Date Time Provider Department 03/30/25 [...] Abnormality [R26.9] 07/24/2009 DVT (deep venous thrombosis) ([facility]) [I82.409] 07/24/2009 04/08/2018 S/P cerebral aneurysm operation [Z98.890, Z86.7*07/24/2009 04/08/2018 Cerebral aneurysm- left posterior ophthlamic ar*07/24/2009 Migraine [G43.909] 08/06/2015 Heterozygous factor V Leiden mutation (HCC) [D6*08/06/2015 02/20/2025 History of uterine cancer- 1994 [Z85.42] 08/06/2015 Gastroesophageal reflux disease [K21.9] Intervertebral disc disorder [M51.9] Intervertebral disc disorder with radiculopathy* 6 H/O thromboembolism [Z86.718] senior living current use 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 [Z79.01]*02/14/2016 Aneurysm (HCC) [...] Encounter Status:Closed by KALEIGH STOCK on 03/31/25 [facility] NICOLE SCREENING W TOMGerson 03-28 NICOLE SCREENING W CYNTHIA * * *Final Report* * * DATE OF EXAM: Mar 28 2025 7:38AM WRW [id number] - NICOLE SCREENING W CYNTHIA / PROCEDURE REASON: Encounter for screening mammogram for breast cancer * * * * Physician Interpretation * * * * RESULT: [place] [address] [place] [address] #[id number] - [facility] SCREENING W CYNTHIA HISTORY: 65 year-old patient [...] Jessie Akbar D.O. Electronically signed on: 03/29/2025 Ash Kier Boiler: BARRIE Transcrimando Date/Time: Mar 28 2025 7:24A Dictated by: JESSIE AKBAR, This examination was interpreted and the report reviewed and electronically signed by: ALEXIA LANCASTER MD on Mar 29 2025 11:32AM EST [id number] Normal [facility] OT D/C of Non Returning Pton 03-21-2025 OT D/C of Non Returning Pt [facility] Occupational Therapy [address] [place] [id number] / REHABILITATION SERVICES DISCHARGE SUMMARY MR#: [id number] Acct: [id number] Name: FADUMO CANTOR Rep #: [id number] : 1960 65 From: Kayla Harley OTR/L, [...] Juan Jose Stafford MD MK Signed Normal [facility] CNOVon 03-09-2025 CNOV Office Visit ([facility]) FADUMO CANTOR ([id number]) 1960 F Date Time Provider Department 03/09/25 7:15 AM YOUSUF ANDRE [facility] During your visit today, we recorded the following information about you: Yousuf nAdre PA-C 03/09/2025 7:35 AM Signed NEW PATIENT [...] sun king: No 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 [facility] C[facility] (AGINTMAC) FADUMO CANTOR ([id number]) 1960 F Date Time Provider Department 02/21/25 BRENDA SARKAR During your visit today, we recorded the following information about you: Gudelia Brenda, [facility] 03/01/2025 7:33 PM Signed [facility] COUMADIN CLINIC - PHONE [...] to pt, who verbalized understanding. Brenda Sarkar [facility] Allergies As of Date: 02/21/2025 Noted Allergy Reaction MUSHROOM 07/02/2015 14 - Other: See Comments Comments: Get heartburn Other reaction(s): AOF Date Reviewed: 02/20/2025 Reviewed by: Lupe Tran LPN - Fully Assessed Reason for Visit: Coumadin/INR [1207] Primary Visit Diagnosis:Factor V Leiden mutation ([facility]) [D68.51] Other Visit Diagnosis:H/O thromboembolism [Z86.718] Order(s):PROTHROMBIN TIME [SQPT] Order #: [id number] Prescriptions as of 03/01/2025 - peg 3350-Electrolytes [...] disorder with radiculopathy* 6 H/O thromboembolism [Z86.718] senior living current use 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 [Z79.01]*02/14/2016 Aneurysm (HCC) [I72.9] 04/08/2018 Cerebral hemorrhage (HCC) [I61.9] 07/02/2016 Vitamin D deficiency [E55.9] Presence of IVC filter [Z95.828] 07/02/2016 Status post hysterectomy- 1994 ovaries spared *07/02/2016 Post-phlebitic syndrome [I87.009] 07/18/2016 History of DVT of lower extremit (more content not included)... Normal [facility] CNOVon 02-20-2025 CN Office Visit ([facility]) FADUMO CANTOR ([id number]) 1960 F Date Time Provider Department 02/20/25 9:40 AM BETHANY LOWERY During your visit today, we recorded the following information about you: Temperature Pulse Respiration Blood pressure 97.6 degrees 90/minute 18/minute 134/84 Weight Height 83 kg 1.6 m Bethany Lowery APRN.CNP 02/20/2025 10:41 AM Signed Recording using DEQ software for draft documentation of the visit was discussed with the patient/authorized territory representative; all questions welcomed and answered. Patient/authorized territory representative agreed to proceed Subjective Fadumo Cantor [...] in both hands by hand orthopedic in [place]. - More pain in the left hand; [...] Keeps extremities warm. GERD: - Managed with [employer]. Constipation: - Managed with increased vegetable intake. Vitamin D Deficiency: - Taking vitamin D 2000 units daily. Skin lesion: - Has history of left lower abdomen skin lesion removal by mechanical developer prover many years ago. - she states that [...] CHOLECYSTECTOMY 11/2014 DR ALVAREZ COLONOSCOPY 2014 dr alne EGD 2014 minimal gastritis HYSTERECTOMY HX 09/1994 [...] 97.6 (T (more content not included)... Normal [facility] PT panel Coag (PPP)on 2024 INR Coag (Bld) [Relative time] 1.9 {INR} [facility] Shanthi 01-17-2025 CNPN Telephone (AGINTMAC) FADUMO CANTOR ([id number]) 1960 F Date Time Provider Department 01/17/25 KALEIGH STOCK AGINTMAC During your visit today, we recorded the following information about you: Kaleigh Stock [facility] 01/17/2025 2:32 PM Signed [facility] [...] preference/comfort (date: 02/07/2021) Home INR monitor: Active, Guadalupe/Offerpopel. Tests every 2-4 weeks Consult agreement has [...] to pt, who verbalized understanding. Kaleigh Stock [facility] Juan Jose Stafford MD 01/17/2025 4:16 PM Signed Reviewed and agree with plan. Allergies As of Date: 01/17/2025 Noted Allergy Reaction MUSHROOM 07/02/2015 14 - Other: See Comments Comments: Get heartburn Other reaction(s): AOF Date Reviewed: 06/27/2024 Reviewed by: Hakeem Garcia APRN.HEADING SAW OPERATOR - Fully Assessed Reason for Visit: Coumadin/INR [1207] Primary Visit Diagnosis:Factor V Leiden mutation ([facility]) [D68.51] Other Visit Diagnosis:H/O thromboembolism [Z86.718] Order(s):PROTHROMBIN TIME [SQPT] Order #: [id number] Prescriptions as of 01/17/2025 - warfarin (COUMADIN) [...] Abnormality [R26.9] 07/24/2009 DVT (deep venous thrombosis) ([facility]) [I82.409] 07/24/2009 04/08/2018 S/P cerebral aneurysm operation [Z98.890, Z86.7*07/24/2009 04/08/2018 Cerebral aneurysm- left posterior ophthlamic ar*07/24/2009 Migraine [G43.909] 08/06/2015 Heterozygous factor V Leiden mutation (HCC) [D6*08/06/2015 History of uterine cancer- 1994 [Z85.42] 08/06/2015 Gastroesophageal reflux disease [K21.9] Intervertebral disc disorder [M51.9] Intervertebral disc disorder with radiculopathy* 6 H/O thromboembolism [Z86.718] senior living current use 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 [Z79.01]*02/14/2016 Aneurysm (HCC) [...] Status:Closed by KALEIGH STOCK on 01/17/25 Normal [facility] PT panel Coag (PPP)on 2024 INR Coag (Bld) [Relative time] 2 {INR} [facility] Shanthi 12-07-2024 CNPN Telephone (AGINTMAC) FADUMO CANTOR ([id number]) 1960 F Date Time Provider Department 12/07/24 BRENDA SARKAR During your visit today, we recorded the following information about you: Giovannichinyere Brenda, [facility] 12/07/2024 5:00 PM Signed [facility] [...] to pt, who verbalized understanding. Brenda Sarkar [facility] Allergies As of Date: 12/07/2024 Noted Allergy Reaction MUSHROOM 07/02/2015 14 - Other: See Comments Comments: Get heartburn Other reaction(s): AOF Date Reviewed: 06/27/2024 Reviewed by: Hakeem Garcia APRN.HEADING SAW OPERATOR - Fully Assessed Reason for Visit: Coumadin/INR [1207] Primary Visit Diagnosis:Factor V Leiden mutation ([facility]) [D68.51] Other Visit Diagnosis:H/O thromboembolism [Z86.718] Order(s):PROTHROMBIN TIME [SQPT] Order #: [id number] Prescriptions as of 12/07/2024 - warfarin (COUMADIN) [...] Abnormality [R26.9] 07/24/2009 DVT (deep venous thrombosis) ([facility]) [I82.409] 07/24/2009 04/08/2018 S/P cerebral aneurysm operation [Z98.890, Z86.7*07/24/2009 04/08/2018 Cerebral aneurysm- left posterior ophthlamic ar*07/24/2009 Migraine [G43.909] 08/06/2015 Heterozygous factor V Leiden mutation (HCC) [D6*08/06/2015 History of uterine cancer- 1994 [Z85.42] 08/06/2015 Gastroesophageal reflux disease [K21.9] Intervertebral disc disorder [M51.9] Intervertebral disc disorder with radiculopathy* 6 H/O thromboembolism [Z86.718] 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]*02/14/2016 Aneurysm (HCC) [...] contusion, c*01/29/2023 (more content not included)... Normal [facility] PT panel Coag (PPP)on 2024 INR Coag (Bld) [Relative time] 2.1 {INR} [facility] Plastic Surgery Visit Report on 11-24-2024 Plastic Surgery Visit Report [facility] Plastic Reconstructive Surgery [address], [address] [place] [address] OFFICE VISIT Date of Service: 11/24/24 MR#: [id number] Acct: [id number] Name: FADUMO CANTOR Rep #: [id number] : 1960 Provider: Dr. Padilla Garcia MD Age/Sex: 64/F Location: [facility] Status: Signed Intake Vital Signs 3 04/07/24 [...] joint (PIPJ), (more content not included)... Normal [facility] FAD[facility] CANT[facility] ([id number]) 1960 F Date Time Provider Department 11/15/24 [facility] During your visit today, we recorded the following information about you: Brenda Sarkar [facility] 11/15/2024 12:34 PM Signed [facility] AMBULATORY PHARMACY COUMADIN CLINIC - PHONE [...] to pt, who verbalized understanding. Brenda Sarkar [facility] Allergies As of Date: 11/15/2024 Noted Allergy Reaction MUSHROOM 07/02/2015 14 - Other: See Comments Comments: Get heartburn Other reaction(s): AOF Date Reviewed: 06/27/2024 Reviewed by: Hakeem Garcia APRN.HEADING SAW OPERATOR - Fully Assessed Reason for Visit: Coumadin/INR [1207] Primary Visit Diagnosis:Factor V Leiden mutation (HCC) [D68.51] Other Visit Diagnosis:H/O thromboembolism [Z86.718] Order(s):PROTHROMBIN TIME [SQPT] Order #: [id number] Prescriptions as of 11/15/2024 - warfarin (COUMADIN) [...] disorder with radiculopathy* 6 H/O thromboembolism [Z86.718] senior living current use 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 [Z79.01]*02/14/2016 Aneurysm (HCC) [...] 01/31/2023 08/ (more content not included)... Normal [facility] CNPNon 10-31-2024 CNPN Telephone (AGRudder) FADUMO CANTOR ([id number]) 1960 F Date Time Provider Department 10/31/24 [facility] AGINTMAC During your visit today, we recorded the following information about you: Lolly Tristan LPN 10/31/2024 3:49 PM Signed [facility] called with patient INR results from 10-28-2024 INR 1.1 Lolly Tristan LPN Allergies As of Date: 10/31/2024 Noted Allergy Reaction MUSHROOM 07/02/2015 14 - Other: See Comments Comments: Get heartburn Other reaction(s): AOF Date Reviewed: 06/27/2024 Reviewed by: Hakeem Garcia APRN.HEADING SAW OPERATOR - Fully Assessed Reason for Visit: Results [...] disorder with radiculopathy* 6 H/O thromboembolism [Z86.718] senior living current use 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 [Z79.01]*02/14/2016 Aneurysm (HCC) [...] Encounter Status:Closed by BRENDA SARKAR on 10/31/24 [facility] Shanthi 10-28-2024 CNPN Telephone ([place]) FADUMO CANTOR ([id number]) 1960 F Date Time Provider Department 10/28/24 BRENDA SARKAR During your visit today, we recorded the following information about you: Brenda Sarkar, [facility] 10/31/2024 10:28 PM Signed [facility] AM[facility]UL[facility]ORY PH[facility]ACY COUMADIN CLINIC - PHONE [...] to pt, who verbalized understanding. Brenda Sarkar [facility] Juan Jose Stafford MD 11/01/2024 1:24 PM Signed Noted. Allergies As of Date: 10/28/2024 Noted Allergy Reaction MUSHROOM 07/02/2015 14 - Other: See Comments Comments: Get heartburn Other reaction(s): AOF Date Reviewed: 06/27/2024 Reviewed by: Hakeem Garcia APRN.HEADING SAW OPERATOR - Fully Assessed Reason for Visit: Coumadin/INR [1207] Primary Visit Diagnosis:Factor V Leiden mutation ([facility]) [D68.51] Other Visit Diagnosis:H/O thromboembolism [Z86.718] Order(s):PROTHROMBIN TIME [SQPT] Order #: [id number] Prescriptions as of 11/01/2024 - warfarin (COUMADIN) [...] disorder with radiculopathy* 6 H/O thromboembolism [Z86.718] 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]*02/14/2016 Aneurysm (HCC) [...] 01/31/2023 08 (more content not included)... Normal [facility] PT panel Coag (PPP)on 2024 INR Coag (Bld) [Relative time] 1.1 {INR} [facility] Shanthi 09-30-2024 CNPN Telephone (AGINTMAC) FADUMO CANTOR ([id number]) 1960 F Date Time Provider Department 09/30/24 KALEIGH STOCKMAC During your visit today, we recorded the following information about you: Kaleigh Stock, [facility] 09/30/2024 2:26 PM Signed [facility] AMBULATORY PHARMACY COUMADIN CLINIC - PHONE [...] preference/comfort (date: 02/07/2021) Home INR monitor: Active, [place]. Tests every 2-4 weeks Consult agreement has [...] to reach patient. No voicemail set up. [employer] Message sent. Kaleigh Stock [facility] Juan Jose Stafford MD 09/30/2024 5:37 PM Signed Reviewed and agree with plan. Allergies As of Date: 09/30/2024 Noted Allergy Reaction MUSHROOM 07/02/2015 14 - Other: See Comments Comments: Get heartburn Other reaction(s): AOF Date Reviewed: 06/27/2024 Reviewed by: Hakeem Garcia APRN.HEADING SAW OPERATOR - Fully Assessed Reason for Visit: Coumadin/INR [1207] Primary Visit Diagnosis:Factor V Leiden mutation ([facility]) [D68.51] Other Visit Diagnosis:H/O thromboembolism [Z86.718] Order(s):PROTHROMBIN TIME [SQPT] Order #: [id number] Prescriptions as of 09/30/2024 - warfarin (JANTOVEN) [...] Abnormality [R26.9] 07/24/2009 DVT (deep venous thrombosis) ([facility]) [I82.409] 07/24/2009 04/08/2018 S/P cerebral aneurysm operation [Z98.890, Z86.7*07/24/2009 04/08/2018 Cerebral aneurysm- left posterior ophthlamic ar*07/24/2009 Migraine [G43.909] 08/06/2015 Heterozygous factor V Leiden mutation (HCC) [D6*08/06/2015 History of uterine cancer- 1994 [Z85.42] 08/06/2015 Gastroesophageal reflux disease [K21.9] Intervertebral disc disorder [M51.9] Intervertebral disc disorder with radiculopathy* 6 H/O thromboembolism [Z86.718] senior living current use 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 [Z79.01]*02/14/2016 Aneurysm (HCC) [...] ME MONTRELL (more content not included)... Normal [facility] PT panel Coag (PPP)on 2024 INR Coag (Bld) [Relative time] 2 {INR} [facility] Shanthi 08-30-2024 CNPN Telephone (AGINTMAC) FADUMO CANTOR ([id number]) 1960 F Date Time Provider Department 08/30/24 KALEIGH STOCK During your visit today, we recorded the following information about you: Montrell Kaleigh, [facility] 08/30/2024 10:53 AM Signed [facility] AMBULATORY PHARMACY COUMADIN CLINIC - PHONE [...] preference/comfort (date: 02/07/2021) Home INR monitor: Active, Guadalupe/Offerpopel. Tests every 2-4 weeks Consult agreement has [...] back instructions and verbalized understanding. Kaleigh Stock [facility] Allergies As of Date: 08/30/2024 Noted Allergy Reaction MUSHROOM 07/02/2015 14 - Other: See Comments Comments: Get heartburn Other reaction(s): AOF Date Reviewed: 06/27/2024 Reviewed by: Hakeem Garcia APRN.HEADING SAW OPERATOR - Fully Assessed Reason for Visit: Coumadin/INR [1207] Primary Visit Diagnosis:Factor V Leiden mutation (HCC) [D68.51] Other Visit Diagnosis:H/O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 MANAGEMENT (TCM) COMMUNITY MONITORING PROGRAM - HIALEAH Provider Action/FYI: Patient will need refill of senna. Her bowels are not moving at all. She will also add OTC miralax. Patient set for Hospital follow up with Dr Herman 02/10/23. SUMMARY: Pt discharged from [facility] on 02/03/23. Admitted for: Sternal fracture Contact made with patient: Yes Hi my name is Flor Guerra DANNIELLE and I am calling from the [facility] [place] [facility] on behalf of your PCP, Juan [...] like to speak with a social work instrument repairer steam plant to help give you support for any [...] I will send your request to a plumbing warehouse helper who will contact and assist you with [...] the way if possible). documented in this encounterGrant Hospital08-10-2023 Miscellaneous Notes* Telephone Encounter - Flor Guerra LPN - 02/05/2023 11:59 AM EDT Patient requesting the following refill Requested Prescriptions Pending Prescriptions Disp Refills senna-docusate (SENNA-S) 8.6-50 mg per tablet 14 tablet 0 Sig: Take 1 tablet by mouth twice daily for 7 days. Allergies: Mushroom (home) [phone] (cell) Patient last appointment: 08/21/2022 Next Appointment: 02/10/2023 The patients preferred pharmacy has been captured for this encounter? yes Request is for script(s) to be escript to pharmacy. Flor Guerra LPN documented in this encounterGrant Hospital08-08-2023 Miscellaneous Notes* Telephone Encounter - Juan Jose Stafford MD - 02/03/2023 4:45 PM EDT Noted.agree. * Telephone Encounter - Flor Guerra LPN - 02/03/2023 2:37 PM EDT Staff message- calling to confirm Dr will follow for home health care; PT and occupational therapy. Return call to Sera with [facility] [phone]. Verbal OK that office will follow this patient has been given to [facility]. Will be contacting this patient tomorrow [...] and occupational therapy Was Patient Referred to [facility]/Seek Emergency Treatment (Y/N): no Did Patient Agree (Y/N): n/a Was An Attempt Made To Transfer The Patient To The Office (Y/N): no Were You Able To Reach Someone At The Office (Y/N): n/a If Yes - Patient Was Transferred To (Caregivers Name): n/a If No - Which [facility] Leadership Hog Slaughterer Did You Speak With Regarding This Patient: n/a Was an appointment scheduled (Y/N): no Reason patient was requesting visit (RFV/signs and symptoms/diagnosis) : calling to confirm Dr fabian for home health care; PT and occupational therapy Person calling if other than patient: Sera with [facility] Return call to if other than patient: Sera Best contact number: [phone]--ok to leave message/confidential voicemail Thank you, Heena Michael February 03, 2023 2:30 PM documented in this encounterGrant Hospital08-05-2023 History of Past illness Narrative* Problem Noted [...] of this encounter (statuses as of 02/05/2023) [facility] Narrative* Problem Noted [...] of this encounter (statuses as of 02/06/2023) [facility] Narrative* Problem Noted [...] of this encounter (statuses as of 02/11/2023) [facility] Narrative* Problem Noted [...] of this encounter (statuses as of 02/19/2023) [facility] Narrative* Problem Noted [...] of this encounter (statuses as of 02/19/2023) [facility] Narrative* Problem Noted [...] of this encounter (statuses as of 03/04/2023) [facility] Narrative* Problem Noted [...] of this encounter (statuses as of 04/03/2023) [facility] Narrative* Problem Noted [...] of this encounter (statuses as of 04/15/2023) [facility] Narrative* Problem Noted [...] of this encounter (statuses as of 04/16/2023) [facility] Narrative* Problem Noted [...] of this encounter (statuses as of 04/17/2023) [facility] Narrative* Problem Noted [...] of this encounter (statuses as of 04/21/2023) [facility] Narrative* Problem Noted [...] of this encounter (statuses as of 04/30/2023) [facility] Narrative* Problem Noted [...] of this encounter (statuses as of 05/02/2023) [facility] Narrative* Problem Noted [...] of this encounter (statuses as of 05/06/2023) [facility] Narrative* Problem Noted [...] of this encounter (statuses as of 05/11/2023) [facility] Narrative* Problem Noted [...] of this encounter (statuses as of 05/14/2023) [facility] Narrative* Problem Noted [...] of this encounter (statuses as of 05/19/2023) [facility] Narrative* Problem Noted [...] of this encounter (statuses as of 05/26/2023) [facility] Narrative* Problem Noted [...] of this encounter (statuses as of 05/28/2023) [facility] Narrative* Problem Noted [...] of this encounter (statuses as of 06/03/2023) [facility] Narrative* Problem Noted [...] of this encounter (statuses as of 07/05/2023) [facility] Narrative* Problem Noted [...] of this encounter (statuses as of 07/30/2023) [facility] Narrative* Problem Noted [...] of this encounter (statuses as of 08/11/2023) [facility] Narrative* Problem Noted [...] of this encounter (statuses as of 08/26/2023) [facility] Narrative* Problem Noted [...] of this encounter (statuses as of 09/09/2023) [facility] Narrative* Problem Noted [...] of this encounter (statuses as of 09/09/2023) [facility] Narrative* Problem Noted [...] of this encounter (statuses as of 09/11/2023) [facility] Narrative* Problem Noted [...] of this encounter (statuses as of 09/14/2023) [facility] Narrative* Problem Noted [...] of this encounter (statuses as of 10/09/2023) [facility] Narrative* Problem Noted [...] of this encounter (statuses as of 10/16/2023) [facility] Narrative* Problem Noted [...] of this encounter (statuses as of 10/16/2023) [facility] Miscellaneous Notes* Telephone Encounter - Juan Jose Stafford MD - 01/13/2023 11:13 PM EDT Reviewed. Agree with plan. * Telephone Encounter - Kaleigh Stock [facility] - 01/13/2023 2:41 PM EDT Referred by [...] 02/10/23 Kaleigh Stock RPh documented in this encounterGrant Hospital06-28-2023 Miscellaneous Notes* Telephone Encounter - Juan Jose [...] 12/2622 Patti Conn RPh documented in this encounterGrant Hospital06-01-2023 Miscellaneous Notes* Telephone Encounter - Juan Jose [...] 27, 2022 11:44 AM documented in this encounterGrant Hospital06-01-2023 Miscellaneous Notes* Telephone Encounter - Patti Conn [...] INR. Patti Conn RPh documented in this encounterGrant Hospital03-28-2023 Miscellaneous Notes* Telephone Encounter - Patti Conn [...] 10/21/22 Patti Conn RPh documented in this encounterGrant Hospital03-21-2023 Miscellaneous Notes* Telephone Encounter - Juan Jose [...] 09/23/22 Kaleigh Stock RPh documented in this encounterGrant Hospital03-14-2023 Miscellaneous Notes* Telephone Encounter - Juan Jose [...] 09/16/22 Patti Conn RPh documented in this encounterGrant Hospital03-13-2023 Miscellaneous Notes* Letter - Mammography Coordinator - 09/08/2022 11:20 AM EDT [facility] [place] [address] [place] [address] September 08, 2022 PID: [id number] Fadumo Cantor [address] [place] [address] Dear Sakshi, We are pleased to inform [...] report [facility] part of your permanent medical record and are available for your continuing care. Thank you for allowing us to help in meeting your health care needs. Sincerely, Dr. Herrera Interpreting Radiologist [facility] (Normal over 40) documented in this encounterGrant Hospital03-11-2023 History of Present illness Narrative* Mamie Yost [...] 06, 2022 10:27 AM documented in this encounterGrant Hospital03-07-2023 Miscellaneous Notes* Telephone Encounter - Kaleigh Stock [facility] - 09/02/2022 2:43 PM EST Referred by [...] 09/09/22 Kaleigh Stock RPh documented in this encounterGrant Hospital02-28-2023 Miscellaneous Notes* Telephone Encounter - Juan Jose [...] 09/02/22 Kaleigh Stock RPh documented in this encounterGrant Hospital02-23-2023 Instructions* Patient Instructions* Natasha Keene MD - [...] I walk each day? According to the [employer] (ACSM) a good [...] as of traffic and other pedestrians. References Jose Alfredo Bland MD, Wellness [place] [facility] Pharmacist, Supervisor [employer], [facility] [employer]. Starting a Walking Program (PDF) Accessed 12/03/2016. Ted Boyle. Walking the Road to Fitness and Health. ACSM's Health & Fitness Journal 2009;13(2): 37-39 Centers for Disease Control. Why Walk? Why Not? Accessed 12/03/2016. documented in this encounterGrant Hospital02-23-2023 History of Present illness Narrative* Natasha Keene MD - 08/21/2022 8:35 AM EST Images from the original note were not included. Natasha Keene MD [facility] Date of Evaluation: 08/21/2022 Patient Name: Fadumo [...] mammogram recommended - Encouraged monthly BSE - [facility] SCREENING 3. Overweight (BMI 25.0-29.9) - ICD9: [...] refill - ICD9: V68.1, ICD10: Z76.0 8. senior living current use 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 [Z79.01]- adherent to regular inr checks - ICD9: V58.61, ICD10: Z79.01 - WARFARIN 7.5 MG TABLET Natasha Keene MD Discussed the above with the patient using shared decision making. The patient is in agreement with the diagnostic and treatment plans. documented in this encounterGrant Hospital02-20-2023 Miscellaneous Notes* Telephone Encounter - Kary Franklin - 08/18/2022 2:33 PM EST Pharmacy faxed requesting the following refill Refill(s) Requested: Requested Prescriptions Pending Prescriptions Disp Refills tamsulosin (FLOMAX) 0.4 mg [Pharmacy Med Name: TAMSULOSIN HCL 0.4 MG CAPSULE] 30 capsule 0 Sig: TAKE 1 CAPSULE BY MOUTH EVERYDAY AT BEDTIME ALLERGIES Allergen Reactions Mushroom Other: See Comments Get heartburn Other reaction(s): AOF (home) [phone] (cell) Last Office Visit Date: 07/24/2022 Last Distance Health Visit: Visit date not found Future Appointment: 08/21/2022 The patients preferred pharmacy has been captured for this encounter? yes Request is for script(s) to be escript to pharmacy. Kary Franklin documented in this encounterGrant Hospital02-06-2023 Miscellaneous Notes* Telephone Encounter - Kaleigh Stock, [facility] - 08/04/2022 2:23 PM EST Referred by [...] 08/11/22 Kaleigh Stock RPh documented in this encounterGrant Hospital02-01-2023 Miscellaneous Notes* Telephone Encounter - Kary Franklin - 07/30/2022 8:39 AM EST Pharmacy faxed requesting the following refill Refill(s) Requested: Requested Prescriptions Pending Prescriptions Disp Refills warfarin (COUMADIN) 7.5 mg tablet [Pharmacy Med Name: WARFARIN SODIUM 7.5 MG TABLET] 30 tablet 5 Sig: TAKE 1 TABLET BY MOUTH EVERY DAY ALLERGIES Allergen Reactions Mushroom Other: See Comments Get heartburn Other reaction(s): AOF (home) [phone] (cell) Last Office Visit Date: 07/24/2022 Last [facility] Visit: Visit date not found Future Appointment: 08/21/2022 The patients preferred pharmacy has been captured for this encounter? yes Request is for script(s) to be escript to pharmacy. Kary Franklin documented in this encounterGrant Hospital01-30-2023 Miscellaneous Notes* Telephone Encounter - Kaleigh Stock [...] PCP. Kaleigh Stock RPh documented in this encounterGrant Hospital01-27-2023 Miscellaneous Notes* Telephone Encounter - Juan Jose [...] 07/28/22 Kaleigh Stock RPh documented in this encounterGrant Hospital01-26-2023 Instructions* Patient Instructions* Natasha Keene MD - [...] you are more likely to maintain them assisted. Try something new. There are many new [...] fitness component that helps to maintain pain-free bhvql-kv-cviups. There are many different reasons why stretching [...] improve balance and agility. Source www.cdc.gov/ Copyright 2126-7855 [facility]. All rights reserved This information is provided by the [facility] and is not intended to replace the medical advice of your doctor or health care provider. Please consult your health care provider for advice about a specific medical condition. For additional health information, please contact the Center for Consumer Health Information at the [facility] or toll-free extension [phone]. If you prefer, you may visit [email or web address] or [email or web address]. This document was last reviewed on: 2017 index#0667 Hematuria So many things can cause blood in your urine (pee), including infections, vigorous exercise and kidney disease. However, you shouldn t ignore hematuria (blood in your urine). Healthcare providers canhelp you find the cause and the best treatment. Urology [phone] Kidney Medicine [phone] APPOINTMENTS & LOCATIONS REQUEST AN APPOINTMENT Symptoms and Causes Diagnosis and Tests Management and Treatment Prevention Living With OVERVIEW Hematuria, or blood in the urine, can be gross (blood visible without a microscope) or microscope (visible with a microscope only). Urine can tell a health story, with colors ranging from pale yellow to yellow to miladys to red, withred possibly indicating bloody urine [...] Dipstick tests have relatively high false-positive rates. [facility] is a non-profit academic medical center. Advertising on our site helps support ourmission. We do not endorse non-[facility] products or services. Policy How common is [...] to treat this condition: alpha-blockers and the 8-ejngy-oiptrnlpi inhibitors. For cancer, your provider will conduct [...] symptoms related to hematuria. A note from [facility] There s no need to panic if [...] and a successful treatment. documented in this encounterGrant Hospital01-26-2023 History of Present illness Narrative* Natasha Keene MD - 07/24/2022 8:41 AM EST Images from the original note were not included. 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 documented in this encounterGrant Hospital01-23-2023 History of Present illness Narrative* Flor OlgaDANNIELLE gee - 07/21/2022 2:27 PM EST ED Follow Up: patient presented to the ED with blood in her urine. Patient discharged from [facility] ED on 07/20/22. 1. How are you [...] you able to contact the office or information security provider prior to your ED visit? No 5. Is there anything else I can do for you today? No Flor Guerra LPN 07/21/22 2:32 PM documented in this encounterGrant Hospital01-23-2023 Miscellaneous Notes* Telephone Encounter - Flor Guerra [...] flankpain. * Telephone Encounter - Kaleigh Stock [facility] - 07/21/2022 10:25 AM EST Referred by [...] 07/24/22 Kaleigh Stock RPh documented in this encounterGrant Hospital01-20-2023 Miscellaneous Notes* Telephone Encounter - Kaleigh Stock [...] 07/21/22 Kaleigh Stock RPh documented in this encounterGrant Hospital12-22-2022 Miscellaneous Notes* Telephone Encounter - Kaleigh Stock [...] 06/20/22 Patti Conn RPh documented in this encounterGrant Hospital11-28-2022 Miscellaneous Notes* Telephone Encounter - Patti Conn [...] 06/20/22 Patti Conn RPh documented in this encounterGrant Hospital10-21-2022 Miscellaneous Notes* Telephone Encounter - Patti Conn [...] 05/15/22 Patti Conn RPh documented in this encounterGrant Hospital09-27-2022 Miscellaneous Notes* Telephone Encounter - Juan Jose Stafford MD - 03/25/2022 5:36 PM EDT Reviewed. [...] 04/22/22 Kaleigh Stock RPh documented in this encounterGrant Hospital09-01-2022 Miscellaneous Notes* Telephone Encounter - Patti Conn [...] 03/26/22 Patti Conn RPh documented in this encounterGrant Hospital08-04-2022 Miscellaneous Notes* Telephone Encounter - Patti Conn [...] 02/27/22 Patti Conn RPh documented in this encounterGrant Hospital08-04-2022 Miscellaneous Notes* Telephone Encounter - Wendy Cruz LPN - 01/30/2022 8:33 AM EDT Pharmacy faxed requesting the following refill Refill(s) Requested: Pending Prescriptions Disp Refills WARFARIN 7.5 MG TABLET 90 tablet 1 Sig: TAKE 1 TABLET BY MOUTH EVERY DAY ÁNGELA: Yes ALLERGIES Allergen Reactions Mushroom Other: See Comments Get heartburn Other reaction(s): AOF (home) [phone] (cell) Last Office Visit Date: 02/07/2021 Last [facility] Visit: Visit date not found Future Appointment: Visit date not found The patients preferred pharmacy has been captured for this encounter? yes Request is for script(s) to be escript to pharmacy. Wendy Cruz LPN documented in this encounterGrant Hospital08-02-2022 Miscellaneous Notes* Telephone Encounter - Eli Naranjo [...] patient. Kaleigh Stock RPh documented in this encounterGrant Hospital07-01-2022 Miscellaneous Notes* Telephone Encounter - Graham Rachel - 12/27/2021 2:48 PM EDT Left patient voicemail to call and schedule her 1 year follow up for medication check and labs due 02/07/2022. documented in this encounterGrant Hospital06-27-2022 Miscellaneous Notes* Telephone Encounter - Juan Jose [...] 01/20/22 Patti Conn RPh documented in this encounterGrant Hospital06-27-2022 Miscellaneous Notes* Telephone Encounter - Eli Naranjo [...] INR. Kaleigh Stock RPh documented in this encounterGrant Hospital05-06-2022 Miscellaneous Notes* Telephone Encounter - Juan Jose [...] assessment:11/29/21 Kaleigh Stock RPh documented in this encounterGrant Hospital01-26-2010 History of Past illness Narrative* Problem Noted [...] of this encounter (statuses as of 11/01/2021) [facility] Narrative* Problem Noted [...] of this encounter (statuses as of 12/23/2021) [facility] Narrative* Problem Noted [...] of this encounter (statuses as of 12/23/2021) [facility] Narrative* Problem Noted [...] of this encounter (statuses as of 12/27/2021) [facility] Narrative* Problem Noted [...] of this encounter (statuses as of 01/30/2022) [facility] Narrative* Problem Noted [...] of this encounter (statuses as of 01/30/2022) [facility] Narrative* Problem Noted [...] of this encounter (statuses as of 02/03/2022) [facility] Narrative* Problem Noted [...] of this encounter (statuses as of 02/27/2022) [facility] Narrative* Problem Noted [...] of this encounter (statuses as of 03/25/2022) [facility] Narrative* Problem Noted [...] of this encounter (statuses as of 04/18/2022) [facility] Narrative* Problem Noted [...] of this encounter (statuses as of 05/26/2022) [facility] N[facility]ative* Problem Noted [...] of this encounter (statuses as of 06/20/2022) [facility] Narrative* Problem Noted [...] of this encounter (statuses as of 07/18/2022) [facility] N[facility]ative* Problem Noted [...] of this encounter (statuses as of 07/21/2022) [facility] Narrative* Problem Noted [...] of this encounter (statuses as of 07/21/2022) [facility] N[facility]* Problem Noted [...] of this encounter (statuses as of 07/24/2022) [facility] N[facility]ative* Problem Noted [...] of this encounter (statuses as of 07/25/2022) [facility] N[facility]ative* Problem Noted [...] of this encounter (statuses as of 07/30/2022) [facility]* Problem Noted [...] of this encounter (statuses as of 08/04/2022) [facility]ative* Problem Noted [...] of this encounter (statuses as of 08/05/2022) [facility]* Problem Noted [...] of this encounter (statuses as of 08/20/2022) [facility]* Problem Noted [...] of this encounter (statuses as of 08/21/2022) [facility]* Problem Noted [...] of this encounter (statuses as of 08/26/2022) [facility]* Problem Noted [...] of this encounter (statuses as of 09/02/2022) [facility]* Problem Noted [...] of this encounter (statuses as of 09/09/2022) [facility]* Problem Noted [...] of this encounter (statuses as of 09/10/2022) [facility]* Problem Noted [...] of this encounter (statuses as of 09/16/2022) [facility]* Problem Noted [...] of this encounter (statuses as of 09/23/2022) [facility]* Problem Noted [...] of this encounter (statuses as of 11/27/2022) [facility]* Problem Noted [...] of this encounter (statuses as of 11/27/2022) [facility]* Problem Noted [...] of this encounter (statuses as of 12/25/2022) [facility]* Problem Noted [...] of this encounter (statuses as of 01/14/2023) [facility]* Diagnosis Factor V Leiden mutation (HCC) Primary hypercoagulable state H/O thromboembolism Personal history of venous thrombosis and embolism [facility] encounter [facility]* Diagnosis Factor V Leiden mutation (HCC) Primary hypercoagulable state H/O thromboembolism Personal history of venous thrombosis and embolism senior living current use 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 [Z79.01]- not adherent to regular inr checks Long-term (current) use 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s [facility]* Diagnosis Factor V Leiden mutation (HCC) Primary hypercoagulable state 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]- not adherent to regular inr checks Long-term (current) use 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s [facility] encounter [facility]* Diagnosis Factor V Leiden mutation (HCC) Primary hypercoagulable state H/O thromboembolism Personal history of venous thrombosis and embolism [facility] encounter [facility]* Diagnosis Factor V Leiden mutation (HCC) Primary hypercoagulable state H/O thromboembolism Personal history of venous thrombosis and embolism 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]- not adherent to regular inr checks Long-term (current) use 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s [facility] encounter [facility]* Diagnosis Factor V Leiden mutation (HCC) Primary hypercoagulable state H/O thromboembolism Personal history of venous thrombosis and embolism [facility]* Diagnosis Factor V Leiden mutation (HCC) Primary hypercoagulable state H/O thromboembolism Personal history of venous thrombosis and embolism [facility]* Diagnosis Factor V Leiden mutation (HCC) Primary hypercoagulable state H/O thromboembolism Personal history of venous thrombosis and embolism [facility]* Diagnosis Benign essential microscopic hematuria- Primary Microscopic hematuria Mixed hyperlipidemia Overweight (BMI 25.0-29.9) Overweight senior living current use 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 [Z79.01]- not adherent to regular inr checks Long-term (current) use 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s Heterozygous factor V Leiden mutation (HCC) Primary hypercoagulable state Atypical chest pain Other chest pain Renal stone Calculus of kidney [facility] encounter [facility]* Diagnosis Factor V Leiden mutation (HCC) Primary hypercoagulable state H/O thromboembolism Personal history of venous thrombosis and embolism 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]- not adherent to regular inr checks Long-term (current) use 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s [facility] encounter [facility]* Diagnosis Factor V Leiden mutation (HCC) Primary hypercoagulable state senior living current use 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 [Z79.01]- not adherent to regular inr checks Long-term (current) use 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s [facility]* Diagnosis Factor V Leiden mutation (HCC) Primary hypercoagulable state H/O thromboembolism Personal history of venous thrombosis and embolism senior living current use 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 [Z79.01]- not adherent to regular inr checks Long-term (current) use 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s [facility] encounter [facility]* Diagnosis Establishing care with new doctor, encounter for- Primary Other reasons for seeking consultation Encounter for screening mammogram for breast cancer Overweight (BMI 25.0-29.9) Overweight Venous insufficiency (chronic) (peripheral) Unspecified venous (peripheral) insufficiency Factor V Leiden mutation (HCC) Primary hypercoagulable state Vaccine refused by patient Vaccination not carried out for other reason Encounter for medication refill Issue of repeat prescriptions senior living current use 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 [Z79.01]- not adherent to regular inr checks Long-term (current) use 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s [facility] encounter [facility]* Diagnosis Factor V Leiden mutation (HCC) Primary hypercoagulable state H/O thromboembolism Personal history of venous thrombosis and embolism 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]- not adherent to regular inr checks Long-term (current) use 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s [facility]* Diagnosis Factor V Leiden mutation (HCC) Primary hypercoagulable state H/O thromboembolism Personal history of venous thrombosis and embolism 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]- not adherent to regular inr checks Long-term (current) use 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s [facility]* Diagnosis Factor V Leiden mutation (HCC) Primary hypercoagulable state H/O thromboembolism Personal history of venous thrombosis and embolism [facility]* Diagnosis Factor V Leiden mutation (HCC)- Primary Primary hypercoagulable state H/O thromboembolism Personal history of venous thrombosis and embolism [facility]* Diagnosis Sternal fracture with retrosternal contusion, closed, initial encounter- Primary Overweight (BMI 25.0-29.9) Overweight Chronic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 information to criminally investigate or prosecute any alcohol or drug abuse patient.[facility] HospitalIn the event this information is protected by the Federal Confidentiality of Alcohol and Drug Abuse Patient Records regulations: The Federal rules restrict any use of the information to criminally investigate or prosecute any alcohol or drug abuse patient.[facility] HospitalIn the event this information is protected by the Federal Confidentiality of Alcohol and Drug Abuse Patient Records regulations: The Federal rules restrict any use of the information to criminally investigate or prosecute any alcohol or drug abuse patient.[facility] HospitalIn the event this information is protected by the Federal Confidentiality of Alcohol and Drug Abuse Patient Records regulations: The Federal rules restrict any use of the information to criminally investigate or prosecute any alcohol or drug abuse patient.[facility] HospitalIn the event this information is protected by the Federal Confidentiality of Alcohol and Drug Abuse Patient Records regulations: The Federal rules restrict any use of the information to criminally investigate or prosecute any alcohol or drug abuse patient.[facility] HospitalIn the event this information is protected by the Federal Confidentiality of Alcohol and Drug Abuse Patient Records regulations: The Federal rules restrict any use of the information to criminally investigate or prosecute any alcohol or drug abuse patient.[facility] HospitalIn the event this information is protected by the Federal Confidentiality of Alcohol and Drug Abuse Patient Records regulations: The Federal rules restrict any use of the information to criminally investigate or prosecute any alcohol or drug abuse patient.[facility] HospitalIn the event this information is protected by the Federal Confidentiality of Alcohol and Drug Abuse Patient Records regulations: The Federal rules restrict any use of the information to criminally investigate or prosecute any alcohol or drug abuse patient.[facility] HospitalIn the event this information is protected by the Federal Confidentiality of Alcohol and Drug Abuse Patient Records regulations: The Federal rules restrict any use of the information to criminally investigate or prosecute any alcohol or drug abuse patient.[facility] HospitalIn the event this information is protected by the Federal Confidentiality of Alcohol and Drug Abuse Patient Records regulations: The Federal rules restrict any use of the information to criminally investigate or prosecute any alcohol or drug abuse patient.[facility] HospitalIn the event this information is protected by the Federal Confidentiality of Alcohol and Drug Abuse Patient Records regulations: The Federal rules restrict any use of the information to criminally investigate or prosecute any alcohol or drug abuse patient.[facility] HospitalIn the event this information is protected by the Federal Confidentiality of Alcohol and Drug Abuse Patient Records regulations: The Federal rules restrict any use of the information to criminally investigate or prosecute any alcohol or drug abuse patient.[facility] HospitalIn the event this information is protected by the Federal Confidentiality of Alcohol and Drug Abuse Patient Records regulations: The Federal rules restrict any use of the information to criminally investigate or prosecute any alcohol or drug abuse patient.[facility] HospitalIn the event this information is protected by the Federal Confidentiality of Alcohol and Drug Abuse Patient Records regulations: The Federal rules restrict any use of the information to criminally investigate or prosecute any alcohol or drug abuse patient.[facility] HospitalIn the event this information is protected by the Federal Confidentiality of Alcohol and Drug Abuse Patient Records regulations: The Federal rules restrict any use of the information to criminally investigate or prosecute any alcohol or drug abuse patient.[facility] HospitalIn the event this information is protected by the Federal Confidentiality of Alcohol and Drug Abuse Patient Records regulations: The Federal rules restrict any use of the information to criminally investigate or prosecute any alcohol or drug abuse patient.[facility] HospitalIn the event this information is protected by the Federal Confidentiality of Alcohol and Drug Abuse Patient Records regulations: The Federal rules restrict any use of the information to criminally investigate or prosecute any alcohol or drug abuse patient.[facility] HospitalIn the event this information is protected by the Federal Confidentiality of Alcohol and Drug Abuse Patient Records regulations: The Federal rules restrict any use of the information to criminally investigate or prosecute any alcohol or drug abuse patient.[facility] HospitalIn the event this information is protected by the Federal Confidentiality of Alcohol and Drug Abuse Patient Records regulations: The Federal rules restrict any use of the information to criminally investigate or prosecute any alcohol or drug abuse patient.[facility] HospitalIn the event this information is protected by the Federal Confidentiality of Alcohol and Drug Abuse Patient Records regulations: The Federal rules restrict any use of the information to criminally investigate or prosecute any alcohol or drug abuse patient.[facility] HospitalIn the event this information is protected by the Federal Confidentiality of Alcohol and Drug Abuse Patient Records regulations: The Federal rules restrict any use of the information to criminally investigate or prosecute any alcohol or drug abuse patient.[facility] HospitalIn the event this information is protected by the Federal Confidentiality of Alcohol and Drug Abuse Patient Records regulations: The Federal rules restrict any use of the information to criminally investigate or prosecute any alcohol or drug abuse patient.[facility] HospitalIn the event this information is protected by the Federal Confidentiality of Alcohol and Drug Abuse Patient Records regulations: The Federal rules restrict any use of the information to criminally investigate or prosecute any alcohol or drug abuse patient.[facility] HospitalIn the event this information is protected by the Federal Confidentiality of Alcohol and Drug Abuse Patient Records regulations: The Federal rules restrict any use of the information to criminally investigate or prosecute any alcohol or drug abuse patient.[facility] HospitalIn the event this information is protected by the Federal Confidentiality of Alcohol and Drug Abuse Patient Records regulations: The Federal rules restrict any use of the information to criminally investigate or prosecute any alcohol or drug abuse patient.[facility] HospitalIn the event this information is protected by the Federal Confidentiality of Alcohol and Drug Abuse Patient Records regulations: The Federal rules restrict any use of the information to criminally investigate or prosecute any alcohol or drug abuse patient.[facility] HospitalIn the event this information is protected by the Federal Confidentiality of Alcohol and Drug Abuse Patient Records regulations: The Federal rules restrict any use of the information to criminally investigate or prosecute any alcohol or drug abuse patient.[facility] HospitalIn the event this information is protected by the Federal Confidentiality of Alcohol and Drug Abuse Patient Records regulations: The Federal rules restrict any use of the information to criminally investigate or prosecute any alcohol or drug abuse patient.[facility] HospitalIn the event this information is protected by the Federal Confidentiality of Alcohol and Drug Abuse Patient Records regulations: The Federal rules restrict any use of the information to criminally investigate or prosecute any alcohol or drug abuse patient.[facility] HospitalIn the event this information is protected by the Federal Confidentiality of Alcohol and Drug Abuse Patient Records regulations: The Federal rules restrict any use of the information to criminally investigate or prosecute any alcohol or drug abuse patient.[facility] HospitalIn the event this information is protected by the Federal Confidentiality of Alcohol and Drug Abuse Patient Records regulations: The Federal rules restrict any use of the information to criminally investigate or prosecute any alcohol or drug abuse patient.[facility] HospitalIn the event this information is protected by the Federal Confidentiality of Alcohol and Drug Abuse Patient Records regulations: The Federal rules restrict any use of the information to criminally investigate or prosecute any alcohol or drug abuse patient.[facility] HospitalIn the event this information is protected by the Federal Confidentiality of Alcohol and Drug Abuse Patient Records regulations: The Federal rules restrict any use of the information to criminally investigate or prosecute any alcohol or drug abuse patient.[facility] HospitalIn the event this information is protected by the Federal Confidentiality of Alcohol and Drug Abuse Patient Records regulations: The Federal rules restrict any use of the information to criminally investigate or prosecute any alcohol or drug abuse patient.[facility] HospitalIn the event this information is protected by the Federal Confidentiality of Alcohol and Drug Abuse Patient Records regulations: The Federal rules restrict any use of the information to criminally investigate or prosecute any alcohol or drug abuse patient.[facility] HospitalIn the event this information is protected by the Federal Confidentiality of Alcohol and Drug Abuse Patient Records regulations: The Federal rules restrict any use of the information to criminally investigate or prosecute any alcohol or drug abuse patient.[facility] HospitalIn the event this information is protected by the Federal Confidentiality of Alcohol and Drug Abuse Patient Records regulations: The Federal rules restrict any use of the information to criminally investigate or prosecute any alcohol or drug abuse patient.[facility] HospitalIn the event this information is protected by the Federal Confidentiality of Alcohol and Drug Abuse Patient Records regulations: The Federal rules restrict any use of the information to criminally investigate or prosecute any alcohol or drug abuse patient.[facility] HospitalIn the event this information is protected by the Federal Confidentiality of Alcohol and Drug Abuse Patient Records regulations: The Federal rules restrict any use of the information to criminally investigate or prosecute any alcohol or drug abuse patient.[facility] HospitalIn the event this information is protected by the Federal Confidentiality of Alcohol and Drug Abuse Patient Records regulations: The Federal rules restrict any use of the information to criminally investigate or prosecute any alcohol or drug abuse patient.[facility] HospitalIn the event this information is protected by the Federal Confidentiality of Alcohol and Drug Abuse Patient Records regulations: The Federal rules restrict any use of the information to criminally investigate or prosecute any alcohol or drug abuse patient.[facility] HospitalIn the event this information is protected by the Federal Confidentiality of Alcohol and Drug Abuse Patient Records regulations: The Federal rules restrict any use of the information to criminally investigate or prosecute any alcohol or drug abuse patient.[facility] HospitalIn the event this information is protected by the Federal Confidentiality of Alcohol and Drug Abuse Patient Records regulations: The Federal rules restrict any use of the information to criminally investigate or prosecute any alcohol or drug abuse patient.[facility] HospitalIn the event this information is protected by the Federal Confidentiality of Alcohol and Drug Abuse Patient Records regulations: The Federal rules restrict any use of the information to criminally investigate or prosecute any alcohol or drug abuse patient.[facility] HospitalIn the event this information is protected by the Federal Confidentiality of Alcohol and Drug Abuse Patient Records regulations: The Federal rules restrict any use of the information to criminally investigate or prosecute any alcohol or drug abuse patient.[facility] HospitalIn the event this information is protected by the Federal Confidentiality of Alcohol and Drug Abuse Patient Records regulations: The Federal rules restrict any use of the information to criminally investigate or prosecute any alcohol or drug abuse patient.[facility] HospitalIn the event this information is protected by the Federal Confidentiality of Alcohol and Drug Abuse Patient Records regulations: The Federal rules restrict any use of the information to criminally investigate or prosecute any alcohol or drug abuse patient.[facility] Reason for Visit (unrecogniz ed section and content) Reason Comments Coumadin/INR Reason Comments Appointment Reason Comments Refill Request warfarin Reason Onset Date Comments Transition Of Care 07/21/2022 [facility] ED Reason Comments ED Follow-up bilateral flank pain and hematuria Specialty Diagnoses / Procedures Referred By Contac t Referred To Contact Internal Medicine/Pediatrics / INTERNAL MEDICINE Diagnoses ED follow up Procedures OFFICE/OUTPATIENT ESTABLISHED MOD MDM 30-39 MIN 4C EST HOSP/ER FU Self Natasha Keene MD 1 [facility], [facility] 5th [place] [address] Referral ID Status Reason Start Date Expiration Date V isits Requested Visits Authorized [id number] Closed Financial Clearance Not Required 07/24/2022 10/22/2022 1 1 Reason Comments Refill Request coumadin Reason Comments Patient Update Reason Comments Refill Request flomax Reason Comments Follow Up Specialty Diagnoses / Procedures Referred By Contac t Referred To Contact Internal Medicine/Pediatrics / INTERNAL MEDICINE Diagnoses Follow-up examination 4 week follow up Procedures OFFICE/OUTPATIENT ESTABLISHED [facility] MDM 30-39 MIN 4C EST Self Natasha Keene MD 1 [facility] [address] [place] [address] Referral ID Status Reason Start Date Expiration Date Visits Requested Visits Authorized [id number] Closed Financial Clearance Required - OON Payor OON Notification Letter Patient Cleared - Admin/Community Pharmacist/D irector advise to proceed 06/29/2022 06/28/2023 1 1 Reason Comments Coumadin/INR Reason Comments Coumadin/INR results Reason Comments [facility] Reason Onset Date Comments Transition Of Care [...] Procedures CONSULT TO PODIATRY OFFICE/OUTPATIENT NEW HIGH [facility] 60-74 MINUTES Juan Jose Stafford MD 1 [place] [address] Referral ID Status Reason Start Date Expiration Date V isits Requested Visits Authorized [id number] Closed PCP Requested Referral 05/05/2023 05/04/2024 1 1 Reason Comments New Fracture Specialty Diagnoses / Procedures Referred By Contac t Referred To Contact Orthopedics Diagnoses Chest wall pain Closed fracture of body of sternum with routine healing, subsequent encounter Procedures CONSULT TO ORTHOPAEDICS OFFICE/OUTPATIENT NEW HIGH MDM 60-74 MINUTES Juan Jose Stafford MD 1 [place] [address] Referral ID Status Reason Start Date Expiration Date V isits Requested Visits Authorized [id number] Closed PCP Requested Referral 04/16/2023 04/15/2024 1 1 Reason Comments lsc Nodule Reason Comments Refill Request jantoven Reason Comments Radiology Mammogram Specialty Diagnoses / Procedures Referred By Contact Referred To Contact RADIO MAMMO REFLECTIONS [place] Diagnoses Screening mammogram, encounter for mamm screening routine Procedures SCREENING DIGITAL BREAST TOMOSYNTHESIS BI SCREENING MAMMOGRAPHY BI 2-VIEW BREAST INC CAD MAMMOGRAM SCREENING Juan Jose Stafford MD 1 [place] [address] Radio Mammo Reflections [facility] [address] [place] [address] Referral ID Status Reason Start Date Expiration Date V isits Requested Visits Authorized [id number] Closed OON/Self Pay Override Patient Cleared - [...] Contact Dermatology Diagnoses Keratosis, seborrheic Procedures OFFICE/OUTPATIENT [facility] 60 MINUTES Bethany Lowery, ENGINE MONITOR.HEADING SAW OPERATOR 1 [facility], [address] [place] [id number] Phone: tel: fax: Referral ID Status Reason Start Date Expiration Date V isits Requested Visits Authorized [id number] Closed PCP Requested Referral 02/20/2025 02/20/2026 1 1 Care Teams (unrecognized sec tion and content) Hog Slaughterer Relationship Specialty Start Date End Date Juan Jose Stafford MD 1 [place] [id number] PCP - General Internal Medicine 05/28/20 Thierry Kirby Jr., MD [address] [place] [phone] Neurology 08/06/[address] MD [address] [place] [address] [place] [address] Gastroenterology 03/17/17 Hog Slaughterer Relationship Specialty Start Date End Date Juan Jose Stafford MD [address] [place] [address] PCP - General Internal Medicine 05/28/20 Thierry Kirby Jr., MD [address] [place] [address] Neurology 08/06/[address] MD [address] [place] [address] [place] [address] Gastroenterology 03/17/17 Hog Slaughterer Relationship Specialty Start Date End Date Juan Jose Stafford MD [address] [place] [address] [place], [place] [id number] [phone] PCP - General Internal Medicine 05/28/20 Thierry Kirby Jr., MD [address] [place] [phone] Neurology 08/06/[address] MD [address] [place] [address] [place] [address] Gastroenterology 03/17/17 Hog Slaughterer Relationship Specialty Start Date End Date Juan Jose Stafford MD [address] [place] [address] PCP - General Internal Medicine 05/28/20 Thierry Kirby Jr., MD [address] [place] [address] Neurology 08/06/[address] MD [address] [place] [address] [place] [address] Gastroenterology 03/17/17 Hog Slaughterer Relationship Specialty Start Date End Date Juan Jose Stafford MD [address] [place] [address] PCP - General Internal Medicine 05/28/20 Thierry Kirby Jr., MD [address] [place] [address] Neurology 08/06/[address] MD [address] [place] [address] [place], [place] [phone] Gastroenterology 03/17/17 Hog Slaughterer Relationship Specialty Start Date End Date Juan Jose Stafford MD [address] [place] [address] PCP - General Internal Medicine 05/28/20 Thierry Kirby Jr., MD [address] [place] [address] Neurology 08/06/[address] MD [address] [place] [address] [place] [address] Gastroenterology 03/17/17 Hog Slaughterer Relationship Specialty Start Date End Date Juan Jose Stafford MD [address] [place] [address] PCP - General Internal Medicine 05/28/20 Thierry Kirby Jr., MD [address] [place] [address] Neurology 08/06/[address] MD [address] [place] [address] [place] [address] Gastroenterology 03/17/17 Hog Slaughterer Relationship Specialty Start Date End Date Juan Jose Stafford MD [address] [place] [address] PCP - General Internal Medicine 05/28/20 Thierry Kirby Jr., MD [address] [place] [address] Neurology 08/06/[address] MD [address] [place] [address] [place] [address] Gastroenterology 03/17/17 Hog Slaughterer Relationship Specialty Start Date End Date Juan Jose Stafford MD [address] [place] [address] PCP - General Internal Medicine 05/28/20 Thierry Kirby Jr., MD [address] [place] [address] Neurology 08/06/[address] MD [address] [place] [address] [place] [address] Gastroenterology 03/17/17 Hog Slaughterer Relationship Specialty Start Date End Date Juan Jose Stafford MD [address] [place] [address] PCP - General Internal Medicine 05/28/20 Thierry Kirby Jr., MD [address] [place] [address] Neurology 08/06/[address] MD [address] [place] [address] [place] [address] Gastroenterology 03/17/17 Hog Slaughterer Relationship Specialty Start Date End Date Juan Jose Stafford MD [address] [place] [address] PCP - General Internal Medicine 05/28/20 Thierry Kirby Jr., MD [address] [place] [address] Neurology 08/06/[address] MD [address] [place] [address] [place] [address] Gastroenterology 03/17/17 Hog Slaughterer Relationship Specialty Start Date End Date Juan Jose Stafford MD [address] [place] [address] PCP - General Internal Medicine 05/28/20 Thierry Kirby Jr., MD [address] [place] [address] Neurology 08/06/[address] MD [address] [place] [address] [place] [address] Gastroenterology 03/17/17 Hog Slaughterer Relationship Specialty Start Date End Date Juan Jose Stafford MD [address] [place] [address] PCP - General Internal Medicine 05/28/20 Thierry Kirby Jr., MD [address] [place] [address] Neurology 08/06/[address] MD [address] [place] [address] [place] [address] Gastroenterology 03/17/17 Hog Slaughterer Relationship Specialty Start Date End Date Juan Jose Stafford MD [address] [place] [address] PCP - General Internal Medicine 05/28/20 Thierry Kirby Jr., MD [address] [place] [address] Neurology 08/06/[address] MD [address] [place] [address] [place] [address] Gastroenterology 03/17/17 Hog Slaughterer Relationship Specialty Start Date End Date Juan Jose Stafford MD [address] [place] [address] PCP - General Internal Medicine 05/28/20 Thierry Kirby Jr., MD [address] [place] [address] Neurology 08/06/[address] MD [address] [place] [address] [place] [address] Gastroenterology 03/17/17 Hog Slaughterer Relationship Specialty Start Date End Date Juan Jose Stafford MD [address] [place] [address] PCP - General Internal Medicine 05/28/20 Thierry Kirby Jr., MD [address] [place] [address] Neurology 08/06/[address] MD [address] [place] [address] [place] [address] Gastroenterology 03/17/17 Hog Slaughterer Relationship Specialty Start Date End Date Juan Jose Stafford MD [address] [place] [address] [place], [place] [id number] PCP - General Internal Medicine 05/28/20 Thierry Kirby Jr., MD [address] [place] [address] Neurology 08/06/[address] MD [address] [place] [address] [place], [place] [phone] Gastroenterology 03/17/17 Hog Slaughterer Relationship Specialty Start Date End Date Juan Jose Stafford MD [address] [place] [address] [place], [place] [phone] PCP - General Internal Medicine 05/28/20 Thierry Kirby Jr., MD [address] [place] [address] Neurology 08/06/[address] MD [address] [place] [address] [place], [place] [phone] Gastroenterology 03/17/17 Hog Slaughterer Relationship Specialty Start Date End Date Juan Jose Stafford MD [address] [place] [address] [place], [place] [phone] PCP - General Internal Medicine 05/28/20 Thierry Kirby Jr., MD [address] [place] [address] Neurology 08/06/[address] MD [address] [place] [address] [place], [place] [phone] Gastroenterology 03/17/17 Hog Slaughterer Relationship Specialty Start Date End Date Juan Jose Stafford MD [address] [facility] [place] [id number] PCP - General Internal Medicine 05/28/20 Thierry Kirby Jr., MD [address] [place] [address] Neurology 08/06/[address] MD [address] [place] [address] [place], [place] [address] Gastroenterology 03/17/17 Hog Slaughterer Relationship Specialty Start Date End Date Juan Jose Stafford MD [address] [place] [address] [place], [place] [id number] PCP - General Internal Medicine 05/28/20 Thierry Kirby Jr., MD [address] [place] [address] Neurology 08/06/[address] MD [address] [place] [address] [place], [place] [address] Gastroenterology 03/17/17 Hog Slaughterer Relationship Specialty Start Date End Date Juan Jose Stafford MD [address] [place], [place] [address] PCP - General Internal Medicine 05/28/20 Thierry Kirby Jr., MD [address] [place] [address] Neurology 08/06/15 Hakeem Laen MD [address] [place] [address] [place], [place] [address] Gastroenterology 03/17/17 Hog Slaughterer Relationship Specialty Start Date End Date Juan Jose Stafford MD [address] [place] [address] [place], [place] [phone] PCP - General Internal Medicine 05/28/20 Thierry Kirby Jr., MD [address] [place] [address] Neurology 08/06/[address] MD [address] [place] [address] [place], [place] [address] Gastroenterology 03/17/17 Hog Slaughterer Relationship Specialty Start Date End Date Juan Jose Stafford MD [address] [place] [address] [place], [place] [address] PCP - General Internal Medicine 05/28/20 Thierry Kirby Jr., MD [address] [place] [address] Neurology 08/06/[address] MD [address] [place] [address] [place], [place] [address] [phone] Gastroenterology 03/17/17 Hog Slaughterer Relationship Specialty Start Date End Date Juan Jose Stafford MD [address] [place] [address] PCP - General Internal Medicine 05/28/20 Thierry Kirby Jr., MD [address] [place] [address] Neurology 08/06/[address] MD [address] [place] [address] [place], [place] [address] Gastroenterology 03/17/17 Hog Slaughterer Relationship Specialty Start Date End Date Juan Jose Stafford MD [address] [place] [address] [place], [place] [address] PCP - General Internal Medicine 05/28/20 Thierry Kirby Jr., MD [address] [place] [address] Neurology 08/06/[address] MD [address] [place] [address] [place] [address] Gastroenterology 03/17/17 Hog Slaughterer Relationship Specialty Start Date End Date Juan Jose Stafford MD [address] [place] [address] PCP - General Internal Medicine 05/28/20 Thierry Kirby Jr., MD [address] [place] [address] Neurology 08/06/[address] MD [address] [place] [address] [place] [address] Gastroenterology 03/17/17 Hog Slaughterer Relationship Specialty Start Date End Date Juan Jose Stafford MD [address] [place] [address] [place], [place] [phone] PCP - General Internal Medicine 05/28/20 Thierry Kirby Jr., MD [address] [place] [address] Neurology 08/06/[address] MD [address] [place] [address] [place], [place] [address] Gastroenterology 03/17/17 Hog Slaughterer Relationship Specialty Start Date End Date Juan Jose Stafford MD [address] [place], [place] [address] PCP - General Internal Medicine 05/28/20 Thierry Kirby Jr., MD [address] [place] [address]4514 Neurology 08/06/[address] MD [address] [place] [address] [place] [address] Gastroenterology 03/17/17 Hog Slaughterer Relationship Specialty Start Date End Date Juan Jose Stafford MD [address] [place] [address] PCP - General Internal Medicine 05/28/20 Thierry Kirby Jr., MD [address] [place] [phone] Neurology 08/06/[address] MD [address] [place] [address] [place], [place] [address] Gastroenterology 03/17/17 Hog Slaughterer Relationship Specialty Start Date End Date Juan Jose Stafford MD [address] [place] [address] [place], [place] [address] PCP - General Internal Medicine 05/28/20 Thierry Kirby Jr., MD [address] [place] [address] Neurology 08/06/[address] MD [address] [place] [address] [place], [place] [address] Gastroenterology 03/17/17 Hog Slaughterer Relationship Specialty Start Date End Date Juan Jose Stafford MD [address] [place] [address] [place], [place] [address] PCP - General Internal Medicine 05/28/20 Thierry Kirby Jr., MD [address] [place] [address]32[address] Neurology 08/06/[address] MD [address] [place] [address] [place], [place] [address] Gastroenterology 03/17/17 Hog Slaughterer Relationship Specialty Start Date End Date Juan Jose Stafford MD [address] [place] [address] [place], [place] [address] PCP - General Internal Medicine 05/28/20 Thierry Kirby Jr., MD [address] [place] [address] Neurology 08/06/[address] MD [address] [place] [address] [place], [place] [address] Gastroenterology 03/17/17 Hog Slaughterer Relationship Specialty Start Date End Date Juan Jose Stafford MD [address] [place] [address] [place], [place] [address] PCP - General Internal Medicine 05/28/20 Thierry Kirby Jr., MD [address] [place] [phone] Neurology 08/06/[address] MD [address] [place] [address] [place], [place] [address] [phone] Gastroenterology 03/17/17 Hog Slaughterer Relationship Specialty Start Date End Date Juan Jose Stafford MD [address] [place] [address] [place], [place] [phone] PCP - General Internal Medicine 05/28/20 Thierry Kirby Jr., MD [address] [place] [address]76[address] Neurology 08/06/[address] MD [address] [place] [address] [place] [address] Gastroenterology 03/17/17 Hog Slaughterer Relationship Specialty Start Date End Date Juan Jose Stafford MD [address] [place] [address] PCP - General Internal Medicine 05/28/20 Thierry Kirby Jr., MD [address] [place] [phone] Neurology 08/06/[address] MD [address] [place] [address] [place], [place] [address] Gastroenterology 03/17/17 Hog Slaughterer Relationship Specialty Start Date End Date Juan Jose Stafford MD [address] [place] [address] [place], [place] [phone] PCP - General Internal Medicine 05/28/20 Thierry Kirby Jr., MD [address] [place] [phone] Neurology 08/06/[address] MD [address] [place] [address] [place] [address] Gastroenterology 03/17/17 Hog Slaughterer Relationship Specialty Start Date End Date Juan Jose Stafford MD [address] [place] [address] [place], [place] [phone] PCP - General Internal Medicine 05/28/20 Thierry Kirby Jr., MD [address] [place] [address] Neurology 08/06/[address] MD [address] [place] [address] [place], [place] [address] [phone] Gastroenterology 03/17/17 [facility] [address] [place] [address] [place], [place] [phone] Internal Medicine 06/09/24 Hog Slaughterer Relationship Specialty Start Date End Date Juan Jose Stafford MD [address] [place] [address] [place], [place] [address] PCP - General Internal Medicine 05/28/20 Thierry Kirby Jr., MD [address] [place] [phone] Neurology 08/06/[address] MD [address] [place] [address] [place], [place] [address] [phone] Gastroenterology 03/17/17 [facility] [address] [place] [address] [place] [address] Internal Medicine 06/09/24 Hog Slaughterer Relationship Specialty Start Date End Date Juan Jose Stafford MD [address] [place] [address] PCP - General Internal Medicine 05/28/20 Thierry Kirby Jr., MD [address] [place] [address]1832 Neurology 08/06/[address] MD [address] [place] [address] [place] [address] Gastroenterology 03/17/17 [facility] [address] [place] [address] [place] [address] Internal Medicine 06/09/24 Hog Slaughterer Relationship Specialty Start Date End Date Juan Jose Stafford MD [address] [place] [address] PCP - General Internal Medicine 05/28/20 Thierry Kirby Jr., MD [address] [place] [phone] Neurology 08/06/[address] MD [address] [place] [address] [place], [place] [id number] [phone] Gastroenterology 03/17/17 [facility] [address] [place] [address] [place], [place] [id number] Internal Medicine 06/09/24 Hog Slaughterer Relationship Specialty Start Date End Date Juan Jose Stafford MD [address] [place] [address] [place], [place] [id number] PCP - General Internal Medicine 05/28/20 Thierry Kirby Jr., MD [address] [place] [phone] Neurology 08/06/[address] MD [address] [place] [address] [place] [address] Gastroenterology 03/17/17 [facility] [address] [place] [address] [place] [address] Internal Medicine 06/09/24 Hog Slaughterer Relationship Specialty Start Date End Date Juan Jose Stafford MD [address] [place] [address] [place], [place] [id number] PCP - General Internal Medicine 05/28/20 Thierry Kirby Jr., MD [address] [place] [phone] Neurology 08/06/[address] MD [address] [place] [address] [place], [place] [phone] Gastroenterology 03/17/17 [facility] [address] [place] [address] [place], [place] [id number] Internal Medicine 06/09/24 Team Status: Active Member [...] November 24, 2024 End: November 24, 2024 Hog Slaughterer Relationship Specialty Start Date End Date Juan Jose Stafford MD [address] [place] [address] [place], [place] [id number] PCP - General Internal Medicine 05/28/20 Thierry Kirby Jr., MD [address] [place] [phone] Neurology 08/06/[address] MD [address] [place] [address] [place], [place] [phone] Gastroenterology 03/17/17 [facility] [address] [place] [address] [place], [place] [id number] Internal Medicine 06/09/24 Hog Slaughterer Relationship Specialty Start Date End Date Juan Jose Stafford MD [address] [place] [address] [place], [place] [id number] PCP - General Internal Medicine 05/28/20 Thierry Kirby Jr., MD [address] [place] [phone] Neurology 08/06/[address] MD [address] [place] [address] [place], [place] [phone] Gastroenterology 03/17/17 [facility] [address] [place] [address] [place], [place] [phone] Internal Medicine 06/09/24 Hog Slaughterer Relationship Specialty Start Date End Date Juan Jose Stafford MD [address] [place] [address] [place], [place] [phone] PCP - General Internal Medicine 05/28/20 Thierry Kirby Jr., MD [address] [place] [phone] Neurology 08/06/[address] MD [address] [place] [address] [place] [address] Gastroenterology 03/17/17 [facility] [address] [place] [address] [place] [address] Internal Medicine 06/09/24 Hog Slaughterer Relationship Specialty Start Date End Date Juan Jose Stafford MD [address] [place] [address] [place], [place] [id number] PCP - General Internal Medicine 05/28/20 Thierry Kirby Jr., MD [address] [place] [phone] Neurology 08/06/[address] MD [address] [place] [address] [place], [place] [phone] Gastroenterology 03/17/17 [facility] [address] [place] [address] [place], [place] [phone] Internal Medicine 06/09/24 Hog Slaughterer Relationship Specialty Start Date End Date Juan Jose Stafford MD [address] [place] [address] [place], [place] [phone] PCP - General Internal Medicine 05/28/20 Thierry Kirby Jr., MD [address] [place] [phone] Neurology 08/06/[address] MD [address] [place] [address] [place], [place] [phone] Gastroenterology 03/17/17 [facility] [address] [place] [address] [place], [place] [phone] Internal Medicine 06/09/24 Team Status: Active Member [...] BE BASED ON THE PRIMARY CLINICAL RECORDS. [facility] [employer] [facility]. provides no warranty or guarantee of the accuracy or completeness of information in this document.
[2025-06-14 23:37] VITALS: BMI 30.4
[2025-06-14 23:46] LABS: Troponin T High Sens 2 HR 10 ng/L (<=14)
[2025-06-15] VITALS (11 sets, daily range): BP systolic 108–167; BP diastolic 59–90; PULSE 63–102; RESP 16–20; TEMP 36.1–36.7; O2SAT 91–100; BMI 30.4
[2025-06-15] MEDS: 0.9% Saline Lock 10 ML Syringe IV (00:09)
[2025-06-15 01:40] LABS: Troponin T High Sens 4 HR 11 ng/L (<=14)
--- NOTE | 2025-06-15 07:24 | PN.HOSP_ITS ---
Objective Data Objective Data Vital Signs: Vital Signs Temp Pulse Resp BP Pulse Ox O2 Del Method 97.5 F L 77 16 108/59 L 95 Room Air 06/15/25 05:54 06/15/25 05:54 06/15/25 05:54 06/15/25 05:54 06/15/25 05:54 06/15/25 05:54 Oxygen Delivery Method Room Air Weight: 171 lb 8.314 oz Body Mass Index (BMI) 30.4 Intake & Output: Intake and Output for Last 24 Hours 06/13/25 06/14/25 06/15/25 23:59 23:59 23:59 Intake Total 1150 / 1150 Balance 1150 / 1150 Lab / Micro Data 06/15/25 06:05 06/15/25 06:05 Labs: Laboratory Results - last 24 hr 06/14/25 19:50: WBC 6.6, RBC 4.58, Hgb 13.4, Hct 41.0, MCV 89.5, MCH 29.3, MCHC 32.7, RDW Std Deviation 42.8, RDW Coeff of Yinka 13.1, Plt Count 249, MPV 10.8, Immature Gran % (Auto) 0.500, Neut % (Auto) 53.7, Lymph % (Auto) 27.6, [place]idal[place] % (Auto) 13.1 H, Eos % (Auto) 3.7, Baso % (Auto) 1.4 H, Absolute Neuts (auto) 3.5, Absolute Lymphs (auto) 1.81, Nucleated RBC % 0, PT 13.8, INR 1.0, APTT 24.8, Sodium 144, Potassium 3.6, Chloride 108, Carbon Dioxide 23.0, Anion Gap 13, BUN 12, Creatinine 0.94, Estim Creat Clear Calc 59.28, Est GFR (MDRD) Non-Af 67, BUN/Creatinine Ratio 12.7, Glucose 85, Calcium 8.9, Total Bilirubin 0.74, AST 28, ALT 26, Alkaline Phosphatase 73, Troponin T High Sens 10, Total Protein 6.9, Albumin 4.3, Globulin 2.6, Albumin/Globulin Ratio 1.6 06/14/25 19:52: Blood Type A NEGATIVE, Antibody Screen NEGATIVE, Crossmatch See Detail 06/14/25 22:06: WBC 9.5, RBC 4.06 L, Hgb 12.0, Hct 36.3 L, MCV 89.4, MCH 29.6, MCHC 33.1, RDW Std Deviation 42.7, RDW Coeff of Yinka 13.1, Plt Count 224, MPV 10.9, Immature Gran % (Auto) 0.400, Neut % (Auto) 57.5, Lymph % (Auto) 26.8, M esvin % (Auto) 12.2 H, Eos % (Auto) 2.0, Baso % (Auto) 1.1 H, Absolute Neuts (auto) 5.4, Absolute Lymphs (auto) 2.53, Nucleated RBC % 0 06/14/25 23:01: Troponin T Hi Sens 2 Hr 10 06/15/25 00:57: Troponin T Hi Sens 4Hr 11 Physical Exam Narrative Seen and examined Patient is states that she started vomiting bright red emesis after 45 minutes of starting colon prep. Denies abdominal pain. Denies previous EGD but had colonoscopy about 10 years ago. Physical exam General: Alert, Oriented x3, Cooperative. BMI 30.4 kg/m?, obesity grade 1 HEENT: Atraumatic, PERRLA, EOMI, Normocephalic. Oral: Oral mucosa moist no Gingival or Mucosal Lesions/ Ulcerations Neck: Supple, No JVD, Negative Carotid Bruits Chest wall/Lungs: Air entry diminished in bilateral lung bases. No crepitation/rhonchi Cardiovascular: Regular rate and rhythm, Normal S1,S2, No M/G/R Abdomen: Bowel Sounds Present, Soft, Non Tender, Non-Distended : No dysuria. No renal angle tenderness. No suprapubic tenderness. Extremities: No edema, Capillary Refill Less than 3 Seconds Skin: No rashes, No breakdown Musculoskeletal: No Tenderness to Palpation of Joints or Extremities Neurological: Cranial nerves II-XII grossly intact, DTR 2+/4. No acute focal neurological deficit. Psych/Mental Status: Normal Affect, Appropriate. Assessment & Plan Assessment/Plan (1) Hematemesis: (2) Acute upper GI bleed: PLAN: Plan 65-year-old female started of vomiting blood multiple episodes approximately 1 hour prior to arrival started 45 minutes after starting colon prep. at 1630 hrs. No BM since starting prep. She stopped warfarin on Thursday for her scheduled colonoscopy on 06/16/2025 1. Upper GI bleed without anemia ? She is having coffee-ground emesis, continue with IV Protonix. Continue NPO. No need to reverse anticoagulation, INR 1.0. IV fluid resuscitation. IV PPI every 12 hourly. Admission H&H 13.4/41% with mild drop to H&H 12.2/36.4. Plan for EGD. BP 148/66, hemodynamically heart rate normal. No hypoxia. Patient denies prior history of chronic habitual alcohol use. Less likely variceal bleed. No prior history of chronic liver disease. 2. 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 DVT: SCDs Laboratory Results 06/14/25 19:50: WBC 6.6, RBC 4.58, Hgb 13.4, Hct 41.0, MCV 89.5, MCH 29.3, MCHC 32.7, RDW Std Deviation 42.8, RDW Coeff of Yinka 13.1, Plt Count 249, MPV 10.8, Immature Gran % (Auto) 0.500, Neut % (Auto) 53.7, Lymph % (Auto) 27.6, Hidalgo % (Auto) 13.1 H, Eos % (Auto) 3.7, Baso % (Auto) 1.4 H, Absolute Neuts (auto) 3.5, Absolute Lymphs (auto) 1.81, Nucleated RBC % 0, PT 13.8, INR 1.0, APTT 24.8, Sodium 144, Potassium 3.6, Chloride 108, Carbon Dioxide 23.0, Anion Gap 13, BUN 12, Creatinine 0.94, Estim Creat Clear Calc 59.28, Est GFR (MDRD) Non-Af 67, BUN/Creatinine Ratio 12.7, Glucose 85, Calcium 8.9, Total Bilirubin 0.74, AST 28, ALT 26, Alkaline Phosphatase 73, Troponin T High Sens 10, Total Protein 6.9, Albumin 4.3, Globulin 2.6, Albumin/Globulin Ratio 1.6 06/14/25 19:52: Blood Type A NEGATIVE, Antibody Screen NEGATIVE, Crossmatch See Detail 06/14/25 22:06: WBC 9.5, RBC 4.06 L, Hgb 12.0, Hct 36.3 L, MCV 89.4, MCH 29.6, MCHC 33.1, RDW Std Deviation 42.7, RDW Coeff of Yinka 13.1, Plt Count 224, MPV 10.9, Immature Gran % (Auto) 0.400, Neut % (Auto) 57.5, Lymph % (Auto) 26.8, M esvin % (Auto) 12.2 H, Eos % (Auto) 2.0, Baso % (Auto) 1.1 H, Absolute Neuts (auto) 5.4, Absolute Lymphs (auto) 2.53, Nucleated RBC % 0 06/14/25 23:01: Troponin T Hi Sens 2 Hr 10 06/15/25 00:57: Troponin T Hi Sens 4Hr 11 06/15/25 06:05: WBC 6.6, RBC 4.11 L, Hgb 12.1, Hct 36.4 L, MCV 88.6, MCH 29.4, MCHC 33.2, RDW Std Deviation 43.2, RDW Coeff of Yinka 13.2, Plt Count 215, MPV 11.2, Immature Gran % (Auto) 0.300, Neut % (Auto) 51.3, Lymph % (Auto) 31.7, M esvin % (Auto) 12.6 H, Eos % (Auto) 3.2, Baso % (Auto) 0.9, Absolute Neuts (auto) 3.4, Absolute Lymphs (auto) 2.09, Nucleated RBC % 0, PT 14.5, INR 1.1, APTT 26.8, Sodium 145, Potassium 3.6, Chloride 111 H, Carbon Dioxide 20.2 L, Anion Gap 13, BUN 10, Creatinine 0.90, Estim Creat Clear Calc 61.55, Est GFR (MDRD) Non-Af 71, BUN/Creatinine Ratio 11.3, Glucose 87, Calcium 8.3, Total Bilirubin 0.81, Direct Bilirubin 0.32 H, AST 23, ALT 22, Alkaline Phosphatase 68, Total Protein 5.9, Albumin 3.7, Globulin 2.1 L Charges/Coding Visit Charges Inpatient E&M: 76882 Subs Hosp L2
[2025-06-15 07:26] LABS: Prothrombin Time (Protime)PT. 14.5 SECONDS (11.7-14.9)
[2025-06-15 07:27] LABS: Partial Thromboplast Time 26.8 Seconds (24.1-36.2)
[2025-06-15 07:32] LABS: Hematocrit 36.4 % (37-47); Hemoglobin 12.1 g/dL (12.0-15.0); Immature Granulocytes Count 0.020 X10^3/uL (0.0-0.0); Mean Corp Hgb Conc 33.2 g/dL (32-36); Mean Corpuscular Volume 88.6 fL (81-99); Mean Platelet Vol. 11.2 fl (6.2-12.0); NRBC Flagged by Analyzer 0 % (0-5); Platelet Count 215 K/mm3 (150-450); RBC Distribution Width CV 13.2 % (11.6-14.6); RBC Distribution Width SD 43.2 fl (35.1-43.9); Red Blood Count 4.11 M/mm3 (4.2-5.4); White Blood Count 6.6 K/mm3 (4.4-11.0)
[2025-06-15 08:07] LABS: Anion Gap 13 (5-15); BUN 10 mg/dL (4-19); BUN/Creat Ratio 11.3 RATIO (10-20); Calcium,Total 8.3 mg/dL (7.6-11.0); Carbon Dioxide 20.2 mmol/L (21.0-32.0); Chloride 111 mmol/L (98-108); Estimated Creatinine Clearance 61.55 ml/min (50-250); Glucose 87 mg/dL (70-99); Potassium 3.6 mmol/L (3.3-5.1)
--- NOTE | 2025-06-15 08:34 | CON.PCM.GI_ITS ---
HPI Consult Data Date of Consult: 06/15/25 HPI Narrative HPI Narrative: The patient is a 65-year-old female with a history of deep vein thrombosis (DVT) treated with Coumadin (warfarin), status post inferior vena cava (IVC) filter placement, and cerebral aneurysms treated with clipping, who presents to the emergency room with hematemesis and severe abdominal pain [1].? The patient reports having intermittent abdominal pain recently. Today, while starting her colon prep for a scheduled colonoscopy tomorrow, she developed sudden onset severe abdominal pain and nausea. This was followed by multiple episodes of bright red hematemesis at home and one episode in the emergency department. She denies recent nonsteroidal anti-inflammatory drug (NSAID) use.? * Labs: * Initial Hemoglobin (Hgb): 13.4 g/dL * Repeat Hgb several hours later: 12.0 g/dL (a drop of 1.4 g/dL) [facility] Medical History Blood clot in leg Back problem Arthritis Allergies Hypercholesterolemia Hypertension FH: cholecystectomy Brain aneurysm Home Medications ?Medication ?Instructions ?Recorded ?Last Taken ?Type warfarin 7.5 mg tablet 7.5 mg PO QDAY 11/24/2405/29 History Allergy/AdvReac Type Severity Reaction Status Date / Time shellfish derived Allergy Mild Vomiting Verified 06/14/25 18:50 mushroom Allergy Anaphylaxis Verified 06/14/25 18:50 Family History Other Blood clot in leg Breast cancer CVA (cerebral vascular accident) Cancer Kidney disease Surgical History Hx of cholecystectomy H/O brain surgery H/O: hysterectomy Social History household members: none housing: house pets and animals: Yes Smoking Status: Former smoker how long ago did patient quit smoking: quit 1979 alcohol intake: current details: socially substance use type: does not use additional social history: pt uses aspirin and ibuprofen pt denies vaping, denies edibles, denies marijuana, pt report history of blood clots ROS Constitutional Constitutional: Denies fatigue, fever(s), poor appetite, weight gain or weight loss Gastrointestinal Gastrointestinal: Denies belching, bloating, change in bowel habits, change in stool character, chewing difficulty, coffee ground emesis, constipation, cramping, diarrhea, dyspepsia, dysphagia, early satiety, excessive flatus, fecal incontinence, heartburn, hematemesis, hematochezia, hemorrhoids, loose stools, melena, nausea, odynophagia, rectal bleeding, tenesmus, vomiting or weight changes Physical Exam Const alert, oriented x3, no apparent distress and healthy appearing General Appearance: cooperative GI normal to inspection, nondistended, normoactive bowel sounds, soft to palpation, non-tender and non-distended Percussion: normal to percussion Rectal Exam: deferred Lab / Micro Data 06/15/25 06:05 06/15/25 06:05 Labs: Laboratory Results - last 24 hr 06/14/25 19:50: WBC 6.6, RBC 4.58, Hgb 13.4, Hct 41.0, MCV 89.5, MCH 29.3, MCHC 32.7, RDW Std Deviation 42.8, RDW Coeff of Yinka 13.1, Plt Count 249, MPV 10.8, Immature Gran % (Auto) 0.500, Neut % (Auto) 53.7, Lymph % (Auto) 27.6, [place] % (Auto) 13.1 H, Eos % (Auto) 3.7, Baso % (Auto) 1.4 H, Absolute Neuts (auto) 3.5, Absolute Lymphs (auto) 1.81, Nucleated RBC % 0, PT 13.8, INR 1.0, APTT 24.8, Sodium 144, Potassium 3.6, Chloride 108, Carbon Dioxide 23.0, Anion Gap 13, BUN 12, Creatinine 0.94, Estim Creat Clear Calc 59.28, Est GFR (MDRD) Non-Af 67, BUN/Creatinine Ratio 12.7, Glucose 85, Calcium 8.9, Total Bilirubin 0.74, AST 28, ALT 26, Alkaline Phosphatase 73, Troponin T High Sens 10, Total Protein 6.9, Albumin 4.3, Globulin 2.6, Albumin/Globulin Ratio 1.6 06/14/25 19:52: Blood Type A NEGATIVE, Antibody Screen NEGATIVE, Crossmatch See Detail 06/14/25 22:06: WBC 9.5, RBC 4.06 L, Hgb 12.0, Hct 36.3 L, MCV 89.4, MCH 29.6, MCHC 33.1, RDW Std Deviation 42.7, RDW Coeff of Yinka 13.1, Plt Count 224, MPV 10.9, Immature Gran % (Auto) 0.400, Neut % (Auto) 57.5, Lymph % (Auto) 26.8, M esvin % (Auto) 12.2 H, Eos % (Auto) 2.0, Baso % (Auto) 1.1 H, Absolute Neuts (auto) 5.4, Absolute Lymphs (auto) 2.53, Nucleated RBC % 0 06/14/25 23:01: Troponin T Hi Sens 2 Hr 10 06/15/25 00:57: Troponin T Hi Sens 4Hr 11 06/15/25 06:05: WBC 6.6, RBC 4.11 L, Hgb 12.1, Hct 36.4 L, MCV 88.6, MCH 29.4, MCHC 33.2, RDW Std Deviation 43.2, RDW Coeff of Yinka 13.2, Plt Count 215, MPV 11.2, Immature Gran % (Auto) 0.300, Neut % (Auto) 51.3, Lymph % (Auto) 31.7, M esvin % (Auto) 12.6 H, Eos % (Auto) 3.2, Baso % (Auto) 0.9, Absolute Neuts (auto) 3.4, Absolute Lymphs (auto) 2.09, Nucleated RBC % 0, PT 14.5, INR 1.1, APTT 26.8, Sodium 145, Potassium 3.6, Chloride 111 H, Carbon Dioxide 20.2 L, Anion Gap 13, BUN 10, Creatinine 0.90, Estim Creat Clear Calc 61.55, Est GFR (MDRD) Non-Af 71, BUN/Creatinine Ratio 11.3, Glucose 87, Calcium 8.3 Assessment & Plan Assessment/Plan (1) Acute upper GI bleed: PLAN: The patient is a 65 F on Coumadin with acute upper gastrointestinal (UGI) bleeding, evidenced by bright red hematemesis and a 1.4 g/dL drop in hemoglobin [1]. She also has concurrent severe abdominal pain.? * Primary Diagnosis:?Acute UGI bleed likely due to peptic ulcer disease (PUD), varices, or other causes, possibly exacerbated by anticoagulation with Coumadin [1]. The severe, sudden onset abdominal pain preceding the bleed raises suspicion for a potentially complicated cause, such as a perforated ulcer, Bina-Merlos tear, or ischemic bowel (less likely with hematemesis presentation but a consideration given IVC filter history). * Risk Factors:?Anticoagulation (Coumadin), history of vascular issues (DVT, cerebral aneurysms, IVC filter). * Comorbidities:?DVT s/p IVC filter, h/o clipped cerebral aneurysms. * Severity:?She is not having ongoing bleeding at this time. I Plan Management of UGI Bleed: * Immediate Actions: * Reverse Anticoagulation:?No need to reverse anticoagulation because her INR is 1. * Holding the next dose of Coumadin. * Diagnostics: * Order type and crossmatch for blood products. * Complete stat labs (CBC, CMP, INR/PTT, LFTs). * Continue serial monitoring of Hgb * Therapeutics: * Proton Pump Inhibitor (PPI):?Start high-dose intravenous (IV) PPI (e.g., Pantoprazole 80 mg IV bolus, then 8 mg/hour infusion) [1]. * Octreotide:?Consider for variceal bleeding prophylaxis, pending initial assessment results. * Transfusion Threshold:?Prepare to transfuse packed red blood cells (PRBCs) per current guidelines (typically Hgb < 7 g/dL in stable patients, higher threshold for unstable or those with cardiovascular comorbidities) [1]. * Intervention: * Esophagogastroduodenoscopy (EGD):?The definitive diagnostic and therapeutic procedure for acute UGI bleeding. Schedule for urgent EGD. Portions of this note were generated using voice recognition software ([employer] Dictation). I have reviewed the contents and every effort has been made to ensure accuracy; however, inadvertent errors in grammar, spelling, punctuation, or word choice may occur, that were not noted before signing the document and should not alter the intended clinical meaning. Charges/Coding Visit Charges Inpatient E&M: 86904 Init Hosp L3
[2025-06-15 08:41] LABS: AST(SGOT) 23 U/L (<=31); Alanine Aminotransfer ALT/SGPT 22 U/L (<=34); Albumin, Serum 3.7 g/dL (3.4-4.8); Alkaline Phosphatase 68 U/L (35-104); Bilirubin, Direct 0.32 mg/dL (0.00-0.30); Globulin 2.1 g/dL (2.2-4.2)
--- NOTE | 2025-06-15 09:11 | CASEMGMT ---
Dx: GI Bleed LACE: 1 6-Clicks: 19 Medical record reviewed and patient evaluated for identification of discharge planning needs. Based on this review, at this time criteria are not present to indicate a need for discharge planning. Will remain available to assist with discharge planning needs as identified or requested.
[2025-06-15] MEDS: Pantoprazole Sodium 40 MG in 0.9% Normal Saline (100mL MB+) 100 ML 300 MG IV ×2 (09:54→21:55)
[2025-06-15] MEDS: Lactated Ringers 1,000 ML 15 ML IV (16:59)
--- NOTE | 2025-06-15 17:22 | PRE.ANES_ITS ---
ASA Classification* ASA Classification ASA Classification: 2 and E Assessment & Plan Anesthesia* Anesthesia Assessment Anesthesia Assessment: Discussed sedation and/or anesthesia options, risks, benefits, and alternatives with patient/parents/legal guardian/POA. Questions invited. The patient/parents/legal guardian/POA seems to understand and agrees to proceed with anesthesia plan. Reviewed the physical assessment, medical history, allergy history and patient home medications list prior to surgery/procedure/anesthetic and documented any changes. Performed airway and anesthesia risk assessments. Anesthesia Type Anesthesia Type: MAC History Source History Obtained from:: Patient and Chart Anesthesia Focused Assessment* Temperature: 97.6 F Pulse Rate: 80 Blood Pressure: 148/66 Respiratory Rate: 16 Pulse Ox: 98 Oxygen Delivery Method: Room Air Airway Assessment Mouth opens: >3 cm Mallampati Score: II Teeth Condition: Intact Neck Range of motion (ROM): Full ROM Labs Anesthesia Preop lab: CBC WBC, (4.4-11.0) 6.6 K/mm3 Today, 06:05 RBC, (4.2-5.4) 4.11 M/mm3 L Today, 06:05 Hgb, (12.0-15.0) 12.1 g/dL Today, 06:05 Hct, (37-47) 36.4 % L Today, 06:05 Plt Count, (150-450) 215 K/mm3 Today, 06:05 CHEMISTRY Potassium, (3.3-5.1) 3.6 mmol/L Today, 06:05 Sodium, (133-145) 145 mmol/L Today, 06:05 Magnesium, (1.8-2.4) 1.9 mg/dL 07/14/14, 11:14 BUN, (4-19) 10 mg/dL Today, 06:05 Creatinine, (0.70-1.20) 0.90 mg/dL Today, 06:05 Glucose, (70-99) 87 mg/dL Today, 06:05 COAG PT, (11.7-14.9) 14.5 SECONDS Today, 06:05 Pre-Assessment Diagnosis/Proposed Procedure Planned Operative Procedure(s): EGD Anesthesia History Anesthesia History - events and promotions assistant: Anesthesia History - events and promotions assistant Hx Hospitalization No 07/01/15 21:55 Any Problems With Anesthesia No 06/15/25 05:02 Cholinesterase deficiency No 06/15/25 05:02 You/Your Family Experience No 06/15/25 05:02 fever (hyperthermia) with Relationship Recent Exposure to Contagious No 06/15/25 05:02 Disease Does patient have nerve No 06/15/25 05:02 stimulator Patient instructed to have No 06/15/25 05:02 device shut off --Does patient have Pacemaker No 06/15/25 15:24 or ICD? When Was Last Pacemaker Check QUESTION #4 FULL TEXT: You/Your Family Experience fever (hyperthermia) with Anesthesia Last Oral Intake Last Oral intake: Last Oral Intake NPO since 00:00 06/15/25 15:24 Meds taken in AM with sips of No 06/15/25 15:24 water? Meds patient instructed to take am of surgery PONV PONV - events and promotions assistant: PONV - events and promotions assistant Female HX of Motion Sickness HX of N/V After Surgery Non-Smoker Duration of Surgery greater than 60 minutes Number of Risk Factors PONV Score Height & Weight Height & Weight: Anesthesia: Height & Weight Height 5 ft 3 in 06/15/25 15:24 Weight: 77.8 kg 06/15/25 15:24 Body Mass Index (BMI) 30.4 06/15/25 15:24 Respiratory Assessment Respiratory Assessment - events and promotions assistant: Respiratory Tract Infection Hx - events and promotions assistant Hx Respiratory Tract Infection No 06/15/25 05:02 STOP Sleep Apnea STOP Sleep Apnea - events and promotions assistant: STOP Sleep Apnea - events and promotions assistant Hx Hypertension No 06/14/25 23:37 Hx Sleep Apnea No 06/14/25 23:37 CPAP No 07/02/15 01:00 BIPAP No 07/02/15 01:00 Do you snore loudly (louder No 06/14/25 23:37 than talking or can be heard Do you often feel tired/ No 06/14/25 23:37 fatigued/ sleepy during daytime? Has anyone observed you stop No 06/14/25 23:37 breathing during sleep? STOP Results Negative 06/14/25 23:37 QUESTION #5 FULL TEXT : Do you snore loudly (louder than talking or can be heard through closed doors)? Tobacco Use History Tobacco Use History - events and promotions assistant: Tobacco Use History - events and promotions assistant Tobacco Use Smoking Status Former smoker 06/14/25 23:37 Hx Tobacco Use No 06/14/25 23:37 Years Smoking Packs Smoked per Day Smoking Cessation Date was No - quit smoking greater 06/14/25 23:37 within the last 15 years than 15 years ago Hx Smoking Cessation Date Hx Smoking Cessation No 06/14/25 23:37 Counseling Hematologic Medial History Hematologic Hx - events and promotions assistant: Hematologic Medical Hx - documentation writer Hx of Blood Transfusion Yes 06/14/25 23:37 Hx of Transfusion in last 3 No 06/14/25 23:37 Months Date of Last Transfusion (if within last 3 months) Ever experience any problems No 06/14/25 23:37 with transfusion(s)? Specify any problems Hx of Preganancy in last 3 N/A 06/14/25 23:37 Months Nurse Filling Out Transfusion JGALLOWAY 06/14/25 23:37 & Questions: Date: 06/14/25 06/14/25 23:37 Time: 23:56 06/14/25 23:37 Patient unable to answer at this time (ie. confused, unrespo /Reproduction History /Reproductive History - events and promotions assistant: /Reproductive Hx- events and promotions assistant Hx Now No 06/15/25 05:02 Gestational Age (in weeks): EDC: Hx Hx Para Hx Section SAB No 06/15/25 05:02 Does the father of the baby or his family experience fever w Father of the baby Malignant Hypertension history comment Active Medications Active Medications: Current Medications Generic Name Dose Route Start Last Admin Trade Name Freq PRN Reason Stop Dose Admin Pantoprazole Sodium 40 mg/ 100 mls @ 300 mls/hr 06/15/25 10:00 06/15/25 10:42 Sodium Chloride IV Infused Q12 JUAN Infusion Sodium Chloride 250 mls @ 15 mls/hr 06/14/25 23:41 IV .[id number] PRN Saline Flush Sodium Chloride 250 mls @ 15 mls/hr 06/14/25 23:41 IV .[id number] PRN Additional IVPB Infusion Lactated Ringer's 1,000 mls @ 15 mls/hr 06/15/25 16:45 06/15/25 16:59 IV 15 mls/hr .Q48H JUAN Administration Ondansetron HCl 4 mg 06/14/25 23:36 Ondansetron 4 Mg/2 Ml Vial IV Q8H PRN PRN NAUSEA/VOMITING Sodium Chloride 10 - 40 ml 06/14/25 23:41 06/15/25 00:09 0.9% Saline Lock 10 Ml Syringe IV 10 ml UD PRN Administration SALINE FLUSH PFSH Medical History Blood clot in leg Back problem Arthritis Allergies Hypercholesterolemia Hypertension FH: cholecystectomy Brain aneurysm Home Medications ?Medication ?Instructions ?Recorded ?Last Taken ?Type warfarin 7.5 mg tablet 7.5 mg PO QDAY 11/24/2405/29 History Allergy/AdvReac Type Severity Reaction Status Date / Time shellfish derived Allergy Mild Vomiting Verified 06/14/25 18:50 mushroom Allergy Anaphylaxis Verified 06/14/25 18:50 Family History Other Blood clot in leg Breast cancer CVA (cerebral vascular accident) Cancer Kidney disease Surgical History Hx of cholecystectomy H/O brain surgery H/O: hysterectomy Social History household members: none housing: house pets and animals: Yes Smoking Status: Former smoker how long ago did patient quit smoking: quit 1979 alcohol intake: current details: socially substance use type: does not use additional social history: pt uses aspirin and ibuprofen pt denies vaping, denies edibles, denies marijuana, pt report history of blood clots Review of Systems (Anesthesia) ROS Narrative System reviewed and no additional complaints, except as documented.
[2025-06-15 17:27] LABS: Hematocrit 38.8 % (37-47); Hemoglobin 12.5 g/dL (12.0-15.0)
--- NOTE | 2025-06-15 17:54 | PCM.POST.ANE ---
Anesthesia: Postop Eval I Current Vital Signs Temperature: 97.8 F Pulse Rate: 102 Blood Pressure: 130/77 Respiratory Rate: 20 Pulse Ox: 92 Oxygen Delivery Method: Room Air Assessment Airway patent: Yes Spontaneous unlabored respirations: Yes Mental status: Asleep nausea: No Vomiting: No Anesthesia Complication: No Fluid Hydration Crystalloid volume administer (ml): 200 Total IV fluid infused: 200 Progress Note Anesthesia document: Postop Eval 1 completed: Yes
--- NOTE | 2025-06-15 17:58 | OP.EGD_ITS ---
Patient Name: Teresa Hubbard Procedure Date: 06/15/2025 5:17 PM Date of : 1960 Age: 65 Procedure: Upper GI endoscopy Indications: Hematemesis Providers: Dedrick Baker DO Medicines: Propofol per Anesthesia Patient Profile: This is a 65 year old female. Refer to note in patient chart for documentation of history and physical. Patient has symptoms of acute vomiting. Complications: No immediate complications. Procedure: Pre-Anesthesia Assessment: - Prior to the procedure, a History and Physical was performed, and patient medications and allergies were reviewed. The patient is competent. The risks and benefits of the procedure and the sedation options and risks were discussed with the patient. All questions were answered and informed consent was obtained. Patient identification and proposed procedure were verified by the physician in the pre-procedure area. Mental Status Examination: alert and oriented. Airway Examination: normal oropharyngeal airway and neck mobility. Respiratory Examination: clear to auscultation. CV Examination: normal. Prophylactic Antibiotics: The patient does not require prophylactic antibiotics. Prior Anticoagulants: The patient has taken no anticoagulant or antiplatelet agents. ASA Grade Assessment: II - A patient with mild systemic disease. After reviewing the risks and benefits, the patient was deemed in satisfactory condition to undergo the procedure. The anesthesia plan was to use monitored anesthesia care (MAC). Immediately prior to administration of medications, the patient was re-assessed for adequacy to receive sedatives. The heart rate, respiratory rate, oxygen saturations, blood pressure, adequacy of pulmonary ventilation, and response to care were monitored throughout the procedure. The physical status of the patient was re-assessed after the procedure. After obtaining informed consent, the endoscope was passed under direct vision. Throughout the procedure, the patient's blood pressure, pulse, and oxygen saturations were monitored continuously. The gastroscope was introduced through the mouth, and advanced to the third part of the duodenum. Small bowel enteroscopy was deemed necessary. The upper GI endoscopy was accomplished without difficulty. The patient tolerated the procedure well. Scope In: 5:36:02 PM Scope Out: 5:49:55 PM Total Procedure Duration Time 0 hours 13 minutes 53 seconds Findings: A 20 mm bleeding Bina-Merlos tear with stigmata of recent bleeding was found. Coagulation for hemostasis using argon plasma at 0.3 liters/minute and 20 powers was successful. To repair the defect, the tissue edges were approximated and two hemostatic clips were successfully placed. Closure of the defect was successful. Clip drapery and upholstery estimator: [employer]. There was no bleeding at the end of the procedure. No gross lesions were noted in the entire examined stomach. No gross lesions were noted in the entire examined duodenum. Impression: - Bina-Merlos tear. Treated with argon plasma coagulation (APC). Clips were placed. Clip drapery and upholstery estimator: [employer]. - No gross lesions in the entire stomach. - No gross lesions in the entire examined duodenum. - No specimens collected. Recommendation: - Discharge patient to home. - Full liquid diet today. Soft diet for the next 5 days. - Continue present medications. - Patient can restart her Coumadin tomorrow - Protonix 40 mg p.o. twice daily x 8 weeks and then daily x 4 weeks Procedure Code(s): --- Professional --- 28089, Esophagogastroduodenoscopy, flexible, transoral; with control of bleeding, any method CPT copyright 2021 [employer]. All rights reserved. The codes documented in this report are preliminary and upon supervisor nuclear medicine review may be revised to meet current compliance requirements. Dedrick Baker DO 06/15/2025 5:57:10 PM This report has been signed electronically. Number of Addenda: 0 Note Initiated On: 06/15/2025 5:17 PM
--- NOTE | 2025-06-15 17:58 | OP.PROVAT_ITS ---
06/15/2025 Juan Jose Euceda Re : Upper GI endoscopy procedure for Teresa Hubbard Dear Kinsey This procedure was performed on May. My impressions and recommendations are as follows: Impressions : - Bina-Merlos tear. Treated with argon plasma coagulation (APC). Clips were placed. Clip cook 3 pastry: [employer]. - No gross lesions in the entire stomach. - No gross lesions in the entire examined duodenum. - No specimens collected. Recommendations : - Discharge patient to home. - Full liquid diet today. Soft diet for the next 5 days. - Continue present medications. - Patient can restart her Coumadin tomorrow - Protonix 40 mg p.o. twice daily x 8 weeks and then daily x 4 weeks My findings are described in the full procedure note, which is enclosed. If I can be of further assistance, please feel free to contact me at . Sincerely, Dedrick Friend, 06/15/2025 5:57:10 PM This report has been signed electronically.
--- NOTE | 2025-06-15 18:01 | POSTOPAN2_ITS ---
Anesthesia Postop Eval I Sum Postop Eval Completion status Anesthesia document: Postop Eval 1 completed: Yes Anesthesia Postop Eval I Summary Anesthesia Postop Eval I Summary: Anesthesia Postop Eval I: Assessment Summary Airway patent Yes 06/15/25 17:54 [email or web address] Spontaneous unlabored Yes 06/15/25 17:54 [email or web address] respirations Mental status Asleep 06/15/25 17:54 [email or web address] nausea No 06/15/25 17:54 [email or web address] Vomiting No 06/15/25 17:54 [email or web address] Anesthesia Postop Eval I: Fluid Summary Crystalloid volume administer 200 06/15/25 17:54 [email or web address] (ml) Colloids volume administered ( ml) Blood Product volume administered (ml) Total IV fluid infused 200 06/15/25 17:54 [email or web address] Anesthesia Postop Eval I: Summary Notes Anesthesia Complication No 06/15/25 17:54 [email or web address] Anesthesia Complication Comment: Post-operative progress note Anesthesia: Postop Eval II Evaluation Mental status: Awake and Calm Pain Level: 1 nausea: No Vomiting: No Complications Anesthesia Complication: No
--- NOTE | 2025-06-15 18:01 | PCM.POSTANE2 ---
Anesthesia Postop Eval I Sum Postop Eval Completion status Anesthesia document: Postop Eval 1 completed: Yes Anesthesia Postop Eval I Summary Anesthesia Postop Eval I Summary: Anesthesia Postop Eval I: Assessment Summary Airway patent Yes 06/15/25 17:54 [email or web address] Spontaneous unlabored Yes 06/15/25 17:54 [email or web address] respirations Mental status Asleep 06/15/25 17:54 [email or web address] nausea No 06/15/25 17:54 [email or web address] Vomiting No 06/15/25 17:54 [email or web address] Anesthesia Postop Eval I: Fluid Summary Crystalloid volume administer 200 06/15/25 17:54 [email or web address] (ml) Colloids volume administered ( ml) Blood Product volume administered (ml) Total IV fluid infused 200 06/15/25 17:54 [email or web address] Anesthesia Postop Eval I: Summary Notes Anesthesia Complication No 06/15/25 17:54 [email or web address] Anesthesia Complication Comment: Post-operative progress note Anesthesia: Postop Eval II Evaluation Mental status: Awake and Calm Pain Level: 1 nausea: No Vomiting: No Complications Anesthesia Complication: No
[2025-06-15] MEDS: BENZOCAINE/MENTHOL 1 LOZENGE MUCOUS MEM (22:21)
[2025-06-15 22:25] LABS: Hematocrit 36.7 % (37-47); Hemoglobin 12.5 g/dL (12.0-15.0)
[2025-06-16 04:06] VITALS: BP 136/87; PULSE 78; RESP 18; TEMP 36.7; O2SAT 96
--- NOTE | 2025-06-16 07:21 | PN.HOSP_ITS ---
Objective Data Objective Data Vital Signs: Vital Signs Temp Pulse Resp BP Pulse Ox O2 Del Method 98.1 F 78 18 136/87 H 96 Room Air 06/16/25 04:06 06/16/25 04:06 06/16/25 04:06 06/16/25 04:06 06/16/25 04:06 06/16/25 04:06 Oxygen Delivery Method Room Air Weight: 171 lb 8.314 oz Body Mass Index (BMI) 30.4 Intake & Output: Intake and Output for Last 24 Hours 06/14/25 06/15/25 06/16/25 23:59 23:59 23:59 Intake Total 1150 / 1150 500 / 500 160 / 160 Balance 1150 / 1150 500 / 500 160 / 160 Lab / Micro Data 06/15/25 22:10 06/15/25 06:05 Labs: Laboratory Results - last 24 hr 06/14/25 19:52: Crossmatch See Detail 06/15/25 06:05: WBC 6.6, RBC 4.11 L, Hgb 12.1, Hct 36.4 L, MCV 88.6, MCH 29.4, MCHC 33.2, RDW Std Deviation 43.2, RDW Coeff of Yinka 13.2, Plt Count 215, MPV 11.2, Immature Gran % (Auto) 0.300, Neut % (Auto) 51.3, Lymph % (Auto) 31.7, M esvin % (Auto) 12.6 H, Eos % (Auto) 3.2, Baso % (Auto) 0.9, Absolute Neuts (auto) 3.4, Absolute Lymphs (auto) 2.09, Nucleated RBC % 0, PT 14.5, INR 1.1, APTT 26.8, Sodium 145, Potassium 3.6, Chloride 111 H, Carbon Dioxide 20.2 L, Anion Gap 13, BUN 10, Creatinine 0.90, Estim Creat Clear Calc 61.55, Est GFR (MDRD) Non-Af 71, BUN/Creatinine Ratio 11.3, Glucose 87, Calcium 8.3, Total Bilirubin 0.81, Direct Bilirubin 0.32 H, AST 23, ALT 22, Alkaline Phosphatase 68, Total Protein 5.9, Albumin 3.7, Globulin 2.1 L 06/15/25 17:19: Hgb 12.5, Hct 38.8 06/15/25 22:10: Hgb 12.5, Hct 36.7 L Physical Exam Narrative Seen and examined Patient is states that she started vomiting bright red emesis after 45 minutes of starting colon prep. Denies abdominal pain. Denies previous EGD but had colonoscopy about 10 years ago. Physical exam General: Alert, Oriented x3, Cooperative. BMI 30.4 kg/m?, obesity grade 1 HEENT: Atraumatic, PERRLA, EOMI, Normocephalic. Oral: Oral mucosa moist no Gingival or Mucosal Lesions/ Ulcerations Neck: Supple, No JVD, Negative Carotid Bruits Chest wall/Lungs: Air entry diminished in bilateral lung bases. No crepitation/rhonchi Cardiovascular: Regular rate and rhythm, Normal S1,S2, No M/G/R Abdomen: Bowel Sounds Present, Soft, Non Tender, Non-Distended : No dysuria. No renal angle tenderness. No suprapubic tenderness. Extremities: No edema, Capillary Refill Less than 3 Seconds Skin: No rashes, No breakdown Musculoskeletal: No Tenderness to Palpation of Joints or Extremities Neurological: Cranial nerves II-XII grossly intact, DTR 2+/4. No acute focal neurological deficit. Psych/Mental Status: Normal Affect, Appropriate. Assessment & Plan Assessment/Plan (1) Hematemesis: (2) Acute upper GI bleed: PLAN: Plan 65-year-old female started of vomiting blood multiple episodes approximately 1 hour prior to arrival started 45 minutes after starting colon prep. at 1630 hrs. No BM since starting prep. She stopped warfarin on Thursday for her scheduled colonoscopy on 06/16/2025 1. Upper GI bleed without anemia ? She is having coffee-ground emesis, continue with IV Protonix. Continue NPO. No need to reverse anticoagulation, INR 1.0. IV fluid resuscitation. IV PPI every 12 hourly. Admission H&H 13.4/41% with mild drop to H&H 12.2/36.4. Plan for EGD. BP 148/66, hemodynamically heart rate normal. No hypoxia. Patient denies prior history of chronic habitual alcohol use. Less likely variceal bleed. No prior history of chronic liver disease. EGD 06/15/2025 Impression: - Bina-Merlos tear. Treated with argon plasma coagulation (APC). Clips were placed. - No gross lesions in the entire stomach. - No gross lesions in the entire examined duodenum. - No specimens collected. Recommendation: - Discharge patient to home. - Full liquid diet today. Soft diet for the next 5 days. - Continue present medications. - Patient can restart her Coumadin tomorrow - Protonix 40 mg p.o. twice daily x 8 weeks and then daily x 4 weeks 2. 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 DVT: SCDs
--- NOTE | 2025-06-16 08:46 | DCINST_ITS ---
Discharge Instructions DC O2, CPAP, BIPAP needs Home O2 Discharge instructions: No Follow Up Care Test Results: Test results from this visit will be discussed in further detail at your follow- up appointment, if applicable. Discharge Plan Admission Admit Date/Time: 06/14/25 23:00 Attending Provider: Ck Trujillo Primary Care Provider: Juan Jose Euceda Consulting Providers: Ck Trujillo; Dedrick Baker; Najma Medeiros; Caity Campuzano; Isis Gracia; Kobly Ding Discharge Orders/Prescriptions Prescriptions: New pantoprazole [Protonix] 40 mg tablet,delayed release (DR/EC) 40 mg PO BID 30 Days Qty: 60 2RF Rx Instructions: 40 mg twice daily for 2 months and then once daily to continue Continued warfarin 7.5 mg tablet 7.5 mg PO QDAY Referrals / Follow Up: Celi Renner MD [Med Staff - Active Staff, General Surgery] Referral Note: Advised follow-up to schedule colonoscopy in 2 weeks Juan Jose Euceda MD [Primary Care Provider, Internal Medicine] Disposition Disposition (needs filled in before D/C Order can be placed): Home, Self Care
--- NOTE | 2025-06-16 08:50 | PCM.DC.SUM ---
Providers Date of Admission: 06/14/25 Date of Discharge: 06/16/25 Primary Care Physician: Dr. Juan Jose Euceda MD Consultations 06/14/25 23:36 Consult: Gastroenterology Routine Consulting Provider: [facility] Reason for Consult: Upper GI bleed EMERGENT Consult: No MD Notified: Yes Date Notified: 06/14/25 Time Notified: 06:03 Method of Notification: Text Reason For Visit: GI BLEED Diagnosis Discharge Diagnosis (1) Hematemesis: Status: Acute Code(s): K92.0 - Hematemesis (2) Acute upper GI bleed: Status: Acute Code(s): K92.2 - Gastrointestinal hemorrhage, unspecified Plan 65-year-old female started of vomiting blood multiple episodes approximately 1 hour prior to arrival started 45 minutes after starting colon prep. at 1630 hrs. No BM since starting prep. She stopped warfarin on Thursday for her scheduled colonoscopy on 06/16/2025 1. Upper GI bleed without anemia ? She is having coffee-ground emesis, continue with IV Protonix. Continue NPO. No need to reverse anticoagulation, INR 1.0. IV fluid resuscitation. IV PPI every 12 hourly. Admission H&H 13.4/41% with mild drop to H&H 12.2/36.4. Plan for EGD. BP 148/66, hemodynamically heart rate normal. No hypoxia. Patient denies prior history of chronic habitual alcohol use. Less likely variceal bleed. No prior history of chronic liver disease. EGD 06/15/2025 Impression: - Bina-Merlos tear. Treated with argon plasma coagulation (APC). Clips were placed. - No gross lesions in the entire stomach. - No gross lesions in the entire examined duodenum. Recommendation: - Discharge patient to home. - Full liquid diet today. Soft diet for the next 5 days. - Continue present medications. - Patient can restart her Coumadin tomorrow - Protonix 40 mg p.o. twice daily x 8 weeks and then daily x 4 weeks Patient is given prescription for pantoprazole 40 mg twice daily for 8 weeks and then once daily for 4 weeks. Advised follow-up with surgeon Dr. Easley was supposed to do colonoscopy in 2 weeks. Follow-up with PCP 2. 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 06/16: Resumed warfarin today. INR 1.1 DVT: SCDs Medications at Discharge Home Medications warfarin 7.5 mg tablet 7.5 mg PO QDAY 11/24/24 pantoprazole 40 mg tablet,delayed release (Protonix) 40 mg PO BID 30 days #60 tabs 06/16/25 Physical Exam Narrative Seen and examined Patient had EGD yesterday. Findings explained to the patient. No further GI bleed. Agreed to go Physical exam General: Alert, Oriented x3, Cooperative. BMI 30.4 kg/m?, obesity grade 1 HEENT: Atraumatic, PERRLA, EOMI, Normocephalic. Oral: Oral mucosa moist no Gingival or Mucosal Lesions/ Ulcerations Neck: Supple, No JVD, Negative Carotid Bruits Chest wall/Lungs: Air entry equal in bilateral lung bases. No crepitation/rhonchi Cardiovascular: Regular rate and rhythm, Normal S1,S2, No M/G/R Abdomen: Bowel Sounds Present, Soft, Non Tender, Non-Distended : No dysuria. No renal angle tenderness. No suprapubic tenderness. Extremities: No edema, Capillary Refill Less than 3 Seconds Skin: No rashes, No breakdown Musculoskeletal: No Tenderness to Palpation of Joints or Extremities Neurological: Cranial nerves II-XII grossly intact, DTR 2+/4. No acute focal neurological deficit. Psych/Mental Status: Normal Affect, Appropriate. Weight / BMI Weight Weight: 171 lb 8.314 oz Body Mass Index (BMI) 30.4 ABG / Lab / Microbiology Data 06/15/25 22:10 06/15/25 06:05 Laboratory: Laboratory Results - last 24 hr 06/14/25 19:52: Crossmatch See Detail 06/15/25 17:19: Hgb 12.5, Hct 38.8 06/15/25 22:10: Hgb 12.5, Hct 36.7 L D/C Instructions DC O2, CPAP, BIPAP Needs Home O2 Discharge instructions: No Meaningful Use Info Meaningful Use Meaningful Use Diagnoses (Choose all that apply): None applicable Discharge Plan Admission Admit Date/Time: 06/14/25 23:00 Attending Provider: Ck Trujillo Primary Care Provider: Juan Jose Euceda Consulting Providers: Ck Trujillo; Samuel,Dedrick; Najma Meediros; Caity Campuzano; Isis Gracia; Kolby Ding Discharge Orders/Prescriptions Prescriptions: New pantoprazole [Protonix] 40 mg tablet,delayed release (DR/EC) 40 mg PO BID 30 Days Qty: 60 2RF Rx Instructions: 40 mg twice daily for 2 months and then once daily to continue Continued warfarin 7.5 mg tablet 7.5 mg PO QDAY Referrals / Follow Up: Celi Renner MD [Med Staff - Active Staff, General Surgery] Referral Note: Advised follow-up to schedule colonoscopy in 2 weeks Juan Jose Euceda MD [Primary Care Provider, Internal Medicine] Disposition Disposition (needs filled in before D/C Order can be placed): Home, Self Care Charges/Coding Visit Charges Inpatient E&M: 39740 Disch Hosp >30min
[2025-06-16 09:14] VITALS: BP 144/68; PULSE 61; RESP 14; TEMP 36.7; O2SAT 99
[2025-06-16] MEDS: Pantoprazole Sodium 40 MG in 0.9% Normal Saline (100mL MB+) 100 ML 300 MG IV (10:30)
--- NOTE | 2025-06-16 11:20 | PHA.DC.COU.R ---
Pharmacy [facility] has performed discharge medication counseling for this patient. The patient was counseled on the following discharge medications and changes in medications for homegoing review. - Pantoprazole 40 mg tablet The Reason for Use, instructions for use, and potential side effects were reviewed for all new medications. The patient's questions regarding all of their medications were answered. The patient was able to verbally demonstrate an understanding of their discharge medications. Medications at Discharge Home Medications warfarin 7.5 mg tablet 7.5 mg PO QDAY 11/24/24 pantoprazole 40 mg tablet,delayed release (Protonix) 40 mg PO BID 30 days #60 tabs 06/16/25
--- NOTE | 2025-06-16 11:27 | CASEMGMT ---
Patient has order for discharge. RN CM in to discuss needs at discharge. Patient denies needs or help at discharge. Patient had no further questions or concerns.
== END 2025-06-16 12:25 | disposition home or self-care (01) | DRG 369 ==
LOC: ED 22:12 → PCU 23:23
PROVIDERS: Anesthesiology; Internal Medicine Gastroenterology; Admitting Provider Family Medicine; Emergency Provider Specialist/Technologist Athletic Trainer; PCP Student in an Organized Health Care Education/Training Program; Visit Provider Internal Medicine
PROC: 0DJ08ZZ Inspection of Upper Intestinal Tract, Via Natural or Artificial Opening Endoscopic (ICD-10-PCS; CPT 43235; principal; 2025-06-15 17:25)
DX: K22.6 Gastro-esophageal laceration-hemorrhage syndrome (principal); D68.32 Hemorrhagic disorder due to extrinsic circulating anticoagulants; T45.515A Adverse effect 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s, initial encounter; Z79.01 Long term (current) use 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s; Z86.718 Personal history of other venous thrombosis and embolism; Z87.891 Personal history of nicotine dependence
CPT/HCPCS: 36415; 80048; 80053; 80076; 84484; 85014; 85018; 85025; 85610; 85730; 86850; 86900; 86901; 93005; 99283; A4216; J2405